=== PATIENT | male | born 1945 | race Two or more races ===

== ENCOUNTER 2024-11-09 22:37 | Inpatient (IN) | payer MEDICARE ==
[~2024-11-09] VITALS: Ht 172.7 cm; Wt 89.7 kg
--- NOTE | 2024-11-09 22:51 | ED.PDOC ---
History of Present Illness HPI Comments 79 year old male presents to the ED via EMS with a chief complaint of ALOC. Per EMS, patient's family called 911 due to patient being ill for the past week with intermittent shortness of breath. Upon EMS arrival, slight fever with 100 F, patient's vital signs were stable, HR 120-130, BP 111 systolic. Patient was given breathing treatment in route, resolved SOB. In route, patient's HR was 226, a-fib/RVR, BP 90 systolic, IV fluids were given. Patient is not compliant with Eliquis medication. PMHx a-fib, HTN. Denies chest pain, dizziness, nausea, vomiting, diarrhea, headache, dysuria, hematuria, hematemesis. No other symptoms or modifying factors present at this time. Time Seen by MD: 22:40 Reviewed Notes: Medications, Allergies Allergies: Coded Allergies: NO KNOWN ALLERGIES (Unverified , 11/09/24) Information Source: Patient, Emergency Med Personnel Mode of Arrival: EMS Severity: Moderate Timing: Weeks Duration: Since onset Prehospital treatment: Breathing Tx, IVF Past Medical History PAST MEDICAL HISTORY: AFIB, HTN Surgical History: Denies all surgeries Family History Family History: Reviewed,noncontributory to illness, No family hx of Cancer, No family hx of DM, No family hx of Heart luis, No family hx of HTN, No family hx ofKidney luis, No family hx of Liver luis, No family hx of Lung luis, No family hx of Stroke Social History Smoker: Non-Smoker Alcohol: Denies ETOH Use Drugs: Denies Drug Use Lives In: Home Constitutional: reports: fever; denies: chills, diaphoresis, fatigue, malaise, sweats, weakness, others EENTM: denies: blurred vision, double vision, ear bleeding, ear discharge, ear drainage, ear pain, ear ringing, eye pain, eye redness, hearing loss, mouth pain, mouth swelling, nasal discharge, nose bleeding, nose congestion, nose pain, photophobia, tearing, throat pain, throat swelling, voice changes, others Respiratory: reports: shortness of breath; denies: cough, hemoptysis, orthopnea, SOB at rest, SOB with excertion, stridor, wheezing, others Cardiovascular: denies: chest pain, dizzy spells, diaphoresis, Dyspnea on exertion, edema, irregular heart beat, left arm pain, lightheadedness, palpitations, PND, syncope, others Gastrointestinal: denies: abdomen distended, abdominal pain, blood streaked bowels, constipated, diarrhea, dysphagia, difficulty swallowing, hematemesis, melena, nausea, poor appetite, poor fluid intake, rectal bleeding, rectal pain, vomiting, others Genitourinary: denies: burning, dysuria, flank pain, frequency, hematuria, incontinence, penile discharge, penile sore, pain, testicle pain, testicle swelling, urgency, others Neurological: denies: dizziness, fainting, headache, left sided numbness, left sided weakness, numbness, paresthesia, pre-existing deficit, right sided numbness, right sided weakness, seizure, speech problems, tingling, tremors, weakness, others Musculoskeletal: denies: back pain, gout, joint pain, joint swelling, muscle pain, muscle stiffness, neck pain, others Integumetry: denies: bruises, change in color, change in hair/nails, dryness, laceration, lesions, lumps, rash, wounds, others Allergic/Immunocompromised: denies: Difficulty Healing, Frequent Infections, Hives, Itching, others Hematologic/Lymphatic: denies: anemia, blood clots, easy bleeding, easy bruising, swollen glands, others Endocrine: denies: excessive hunger, excessive sweating, excessive thirst, excessive urination, flushing, intolerance to cold, intolerance to heat, unexplained weight gain, unexplained weight loss, others Psychiatric: denies: anxiety, bipolar disorder, depression, hopeless, panic disorder, schizophrenia, sleepless, suicidal, others All Other Systems: Reviewed and Negative Physical Exam General Appearance: Normal HEENT: Normal ENT Inspection, Pharynx Normal, TMs Normal Neck: Full Range of Motion, Non-Tender, Normal, Normal Inspection Respiratory: Chest Non-Tender, Lungs Clear, No Accessory Muscle Use, No Respiratory Distress, Normal Breath Sounds Cardiovascular: No Edema, No JVD, No Murmur, No Gallop, Normal Peripheral Pulses, Regular Rate/Rhythm Breast Exam: Deferred Gastrointestinal: No Organomegaly, Non Tender, No Pulsatile Mass, Normal Bowel Sounds, Soft Genitalia: Deferred Pelvic: Deferred Rectal: Deferred Extremities: No calf tenderness, Normal capillary refill, Normal inspection, Normal range of motion, Non-tender, No pedal edema Musculoskeletal : Apperance: Normal Neurologic: Alert, manager body II-XII nml as Tested, No Motor Deficits, Normal Affect, Normal Mood, No Sensory Deficits Cerebellar Function: Normal Reflexes: Normal Skin: Dry, Normal Color, Warm Lymphatic: No Adenopathy Was a procedure done? Was a procedure done?: No EKG EKG : Pulse Rate (adult): 143 Cardiac Rhythm: ST Differential Dx Considerations may include: Electrolyte abnormality, infectious etiology, viral syndrome X-Ray, Labs, Meds, VS Vital Signs Date Time Temp Pulse Resp B/P (MAP) Pulse Ox O2 Delivery O2 Flow Rate FiO2 11/10/24 09:00 122 30 130/67 (88) 92 11/10/24 07:30 114 24 91 Nasal Cannula* 4 36 11/10/24 07:00 114 24 103/76 (85) 91 11/10/24 05:00 114 28 113/75 (88) 87 11/10/24 03:00 127 29 111/61 (78) 89 11/10/24 01:00 136 32 121/71 (88) 87 11/10/24 00:16 137 22 97 Nasal Cannula* 3 32 11/09/24 23:15 98.2 137 22 103/65 (78) 97 98.2 11/09/24 22:51 143 11/09/24 22:45 100.0 165 24 90/61 (71) 90 100.0 11/09/24 22:43 143 Lab Test 11/10/24 08:40 11/10/24 04:45 11/10/24 01:43 11/10/24 01:02 Range/Units Direct Bilirubin 4.0 H <0.3 mg/dL C-Reactive Protein High Sensitivity > 20.00 H <1.0 mg/dL Lipase 68 H 12-53 U/L Thyroid Stimulating Hormone (TSH) 5.71 H 0.55-4.78 uIU/mL Hepatitis A IgM Antibody Negative Hepatitis B Surface Antigen Negative Negative Hepatitis B Core IgM Antibody Negative Negative Hepatitis C Antibody Negative Negative Urine Color Dark-yellow Yellow Urine Clarity Ex.turbid Clear Urine pH 5.5 5.0-9.0 Urine Specific Jackson 1.019 1.001-1.035 Urine Protein 1+ H Negative Urine Ketones Negative Negative Urine Blood 2+ H Negative /uL Urine Nitrite Negative Negative Urine Bilirubin 2+ Negative Urine Urobilinogen 6 Negative mg/dL Urine Leukocyte Esterase Negative Negative /uL Urine RBC 1 0 - 3 /hpf Urine Microscopic WBC 4 H 0-3 /HPF Urine Squamous Epithelial Cells None seen <5 /hpf Urine Amorphous Crystals Few None Seen /hpf Urine Bacteria Few H None Seen /hpf Urine Mucus Few None Seen Urine Glucose Normal Normal mg/dL Urine Opiates Screen Neg NEGATIVE Urine Fentanyl Screen Neg NEGATIVE Urine Barbiturates Screen Neg NEGATIVE Urine Phencyclidine Screen Neg NEGATIVE Urine Amphetamines Screen Neg NEGATIVE Urine Benzodiazepines Screen Neg NEGATIVE Urine Cocaine Screen Neg NEGATIVE Urine Cannabinoids Screen Neg NEGATIVE Troponin I High Sensitivity 92 *H </=54 ng/L Lactic Acid Level 2.7 *H 0.4-2.0 mmol/L Test 11/09/24 23:46 11/09/24 22:57 Range/Units Troponin I High Sensitivity 104 *H 109 *H </=54 ng/L White Blood Count 31.2 *H 4.4-10.8 10^3/uL Red Blood Count 5.13 4.5-5.90 10^6/uL Hemoglobin 15.1 13.5-17.5 g/dL Hematocrit 45.3 41.0-53.0 % Mean Corpuscular Volume 88.2 80.0-100.0 fL Mean Corpuscular Hemoglobin 29.4 28.0-32.0 pg Mean Corpuscular Hemoglobin Concent 33.4 32.0-36.0 g/dL Red Cell Distribution Width 14.8 H 11.8-14.3 % Platelet Count 333 140-450 10^3/uL Mean Platelet Volume 9.3 6.9-10.8 fL Neutrophils (%) (Auto) 37.0-80.0 % Lymphocytes (%) (Auto) 10.0-50.0 % Monocytes (%) (Auto) 0.0-12.0 % Basophils (%) (Auto) 0.0-2.0 % Neutrophils # (Auto) 1.6-8.6 10 ^3/uL Lymphocytes # (Auto) 0.4-5.4 10 ^3/uL Monocytes # (Auto) 0-1.3 10 ^3/uL Differential Total Cells Counted 100.0 100 Neutrophils % (Manual) 95 H 37.0-80.0 Band Neutrophils % (Manual) 2 Lymphocytes % (Manual) 2 L 10.0-50.0 Monocytes % (Manual) 0 0-12 Eosinophils % (Manual) 0 0-7 Basophils % (Manual) 0 0.0-2.0 Metamyelocytes % (manual) 1 Myelocytes % (Manual) 0 Promyelocytes % (Manual) 0 Blast Cells % (Manual) 0 Nucleated Red Blood Cells 1.0 % Reactive Lymphocytes 0 Platelet Estimate Adequate Giant Platelets Few Sodium Level 141 136-145 mmol/L Potassium Level 5.0 3.5-5.1 mmol/L Chloride Level 106 98-107 mmol/L Carbon Dioxide Level 22 20-31 mmol/L Anion Gap 13 5-15 Blood Urea Nitrogen 89 *H 9-23 mg/dL Creatinine 2.23 H 0.700-1.30 mg/dL Glomerular Filtration Rate Calc 29 >90 mL/min BUN/Creatinine Ratio 39.9 H 10.0-20.0 Serum Glucose 147 H 74-106 mg/dL Lactic Acid Level 3.7 *H 0.4-2.0 mmol/L Calcium Level 8.3 L 8.7-10.4 mg/dL Total Bilirubin 4.5 H 0.2-1.0 mg/dL Aspartate Amino Transferase (AST) 339 H 13-40 U/L Alanine Aminotransferase (ALT) 152 H 7-40 U/L Alkaline Phosphatase 147 H 46-116 U/L B-Type Natriuretic Peptide 45.66 0-100 pg/mL Total Protein 6.9 5.7-8.2 g/dL Albumin 3.8 3.2-4.8 g/dL Microbiology Date/Time Source Procedure Growth Status 11/09/24 23:06 Blood Blood Culture - Final Staphylococcus epidermidis Complete 11/09/24 22:57 Blood Blood Culture - Final NO GROWTH AFTER 5 DAYS OF INCUBATION. Complete [place] [address] Ph: [phone] DIAGNOSTIC IMAGING Diagnostic Imaging Report : [id number] Signed PATIENT: HOLLI HOSKINS ACCT: [id number] UNIT: [id number] : 1945 LOC: ER ROOM / BED: / AGE / SEX: 79 / M ADM STATUS: REG ER SERVICE [id number] ORDERING PHYSICIAN: ALAN CRAMER MD PROCEDURE(s): CXRP - CHEST PORTABLE REASON: weakness ORDER NUMBER(s): [id number], ACCESSION NUMBER(s): [id number] EXAM: XY CHEST PORTABLE CLINICAL HISTORY: weakness TECHNIQUE: Single AP view of the chest WID: COMPARISON: None FINDINGS: Lines and tubes: None Chest: The heart size and pulmonary vasculature is within normal limits. Patchy and confluent airspace opacities in the mid to lower left lung. The osseous structures are grossly intact. Multilevel thoracic spondylosis. IMPRESSION: Patchy and confluent airspace opacities in the mid to lower left lung which cou ld reflect pneumonia. ATED BY: WILMER RIVERO MD DICTATED DATE/TIME: 11/09/242323 SIGNED BY: WILMER RIVERO MD SIGNED DATE/TIME: 11/09/242323 CC: Time of 1ST Reevaluation: 23:10 Reevaluation 1ST: Unchanged Patient Education/Counseling: Diagnosis, Treatment, Prognosis Family Education/Counseling: No Family Present SEPSIS Sepsis Screen Physician Orders Chest Portable (11/09/24 22:47) Electrocardigram (11/09/24 22:47) Electrocardigram (11/09/24 23:47) Electrocardigram (11/10/24 01:47) Ct Ab Pel Wo Con-No Oral Or Iv (11/10/24 01:59) Abdomen Limited (11/10/24 07:54) Allergies (11/10/24 09:40) Code Status (11/10/24 09:40) Ondansetron Hcl (Zofran) (11/10/24 09:45) Sequential Compression Device (11/10/24 ) Stat Ekg For Chest Pain (11/10/24 09:40) Notify Md Of Changes From Base (11/10/24 09:40) Emergency Dysrhythmia Protocol (11/10/24 09:40) Rhythm Strips Once Every Shift (11/10/24 09:40) Oxygen By Nasal Cannula (11/10/24 09:40) Vital Signs Date Time Temp Pulse Resp B/P (MAP) Pulse Ox O2 Delivery O2 Flow Rate FiO2 11/10/24 09:00 122 30 130/67 (88) 92 11/10/24 07:30 114 24 91 Nasal Cannula* 4 36 11/10/24 07:00 114 24 103/76 (85) 91 11/10/24 05:00 114 28 113/75 (88) 87 11/10/24 03:00 127 29 111/61 (78) 89 11/10/24 01:00 136 32 121/71 (88) 87 11/10/24 00:16 137 22 97 Nasal Cannula* 3 32 11/09/24 23:15 98.2 137 22 103/65 (78) 97 98.2 11/09/24 22:51 143 11/09/24 22:45 100.0 165 24 90/61 (71) 90 100.0 11/09/24 22:43 143 Laboratory Tests Test 11/09/24 22:57 11/10/24 01:02 Lactic Acid Level 3.7 mmol/L (0.4-2.0) *H 2.7 mmol/L (0.4-2.0) *H White Blood Count 31.2 10^3/uL (4.4-10.8) *H Departure 1 Departure Time of Disposition: 19:00 (Patient with a acute metabolic encephalopathy concerning abnormality AFib with RVR. We will admit patient for further workup) Impression: Primary Impression: Atrial fibrillation with RVR Additional Impressions: Acute metabolic encephalopathy Generalized weakness Disposition: ADMITTED INPATIENT Admit to: Tele Condition: Guarded Critical Care Note Critical Care Time?: Yes Critical care comment: Altered mental status Authorized and Performed by: Alan Cramer MD Total critical care time: Approximately 37 minutes Due to a high probability of clinically significant, life threatening deterioration, the patient required my highest level of preparedness to intervene emergently and I personally spent this critical care time directly and personally managing the patient. This critical care time included obtaining a history; examining the patient; pulse oximetry; ordering and review of studies; arranging urgent treatment with development of a management plan; evaluation of patient's response to treatment; frequent reassessment; and, discussions with other providers. This critical care time was performed to assess and manage the high probability of imminent, life-threatening deterioration that could result in multi-organ failure. It was exclusive of separately billable procedures and treating other patients and teaching time. Please see my other sections and the rest of the note for further information on patient assessment and treatment. Stability Stability form required: No I personally scribed for ALAN CRAMER MD ([email or web address]) on 11/09/24 at 22:51. Electronically submitted by Angelita Montana ([email or web address]). I personally scribed for ALAN CRAMER MD ([email or web address]) on 11/09/24 at 23:29. El ectronically submitted by Angelita Montana ([email or web address]). ALAN CRAMER MD Nov 09, 2024 22:51
--- NOTE | 2024-11-09 23:26 | DVH ---
EXAM: XY CHEST PORTABLE CLINICAL HISTORY: weakness TECHNIQUE: Single AP view of the chest WID: COMPARISON: None FINDINGS: Lines and tubes: None Chest: The heart size and pulmonary vasculature is within normal limits. Patchy and confluent airspace opacities in the mid to lower left lung. The osseous structures are grossly intact. Multilevel thoracic spondylosis. IMPRESSION: Patchy and confluent airspace opacities in the mid to lower left lung which could reflect pneumonia.
[2024-11-09] MEDS: SODIUM CHLORIDE 0.9% 2,000 ML IV ONE (23:33)
[2024-11-09] MEDS: VANCOMYCIN 1GM/200ML PM 200 ML IV ONE (23:33)
[2024-11-09 23:37] LABS: Mean Corpuscular Volume 88.2 fL (80.0-100.0)
[2024-11-09 23:39] LABS: Hematocrit 45.3 % (41.0-53.0); Hemoglobin 15.1 g/dL (13.5-17.5); Mean Corpuscular Hemoglobin 29.4 pg (28.0-32.0)
[2024-11-09 23:47] LABS: Albumin 3.8 g/dL (3.2-4.8); Anion Gap 13 (5-15); BUN/Creatinine Ratio 39.9 (10.0-20.0); Carbon Dioxide 22 mmol/L (20-31); Chloride 106 mmol/L (98-107); Potassium 5.0 mmol/L (3.5-5.1); Sodium 141 mmol/L (136-145); Total Protein 6.9 g/dL (5.7-8.2)
[2024-11-09 23:52] LABS: Lactic Acid w/Reflex 3.7 mmol/L (0.4-2.0)
[2024-11-09 23:53] LABS: Alanine Aminotransferase 152 U/L (7-40); Alkaline Phosphatase 147 U/L (46-116); Bilirubin, Total 4.5 mg/dL (0.2-1.0); Blood Urea Nitrogen 89 mg/dL (9-23); Calcium 8.3 mg/dL (8.7-10.4); Glucose 147 mg/dL (74-106)
[2024-11-10] VITALS (17 sets, daily range): BP systolic 108–162; BP diastolic 55–124; PULSE 101–137; RESP 17–32; TEMP 100.8; O2SAT 73–99
[2024-11-10 00:45] LABS: Giant Platelets Few; Nucleated Red Blood Cells % 1.0 %; Total Cells Counted 100.0 (100)
[2024-11-10] MEDS: CEFEPIME 2GM/50ML NS 50 ML IV ONE (01:23)
[2024-11-10] MEDS: SODIUM CHLORIDE 0.9% 1,000 ML IV ONE ×2 (01:42→02:54)
--- NOTE | 2024-11-10 03:08 | DVH ---
Exam: CT CT AB PEL WO CON-NO ORAL OR IV History: abdominal pain Comparison Study: None TECHNIQUE: Multidetector CT of the abdomen and pelvis was performed from lung bases to pubic symphysi s. Imaging was performed without IV contrast. Axial, coronal and sagittal multiplanar reformats were obtained from the axial data set by the technologist. Radiation optimization: All CT scans at this facility use at least one of these dose optimization vandana hniques: automated exposure control mA and/or kV adjustment per patient size (includes targeted exam s where dose is matched to clinical indication) or iterative reconstruction. Radiation Dose Information: CT Dose: CTDI volume is 21.4 mGy. Dose-length product is 1362.7 mGy*cm FINDINGS: Evaluation of solid organs is limited due to lack of intravenous contrast use. Imaged portions of the lung bases demonstrate consolidation and opacification of the left lower lobe. The heart appears prominent size. Liver, gallbladder, pancreas, adrenal glands and spleen appear unremarkable. There is a small hiatal hernia. 1.7 cm left exophytic renal mass likely represent cyst. No evidence of hydronephrosis or calc ulus. No evidence of bowel obstruction or focal bowel wall thickening. Small umbilical fat containing herni a. Severe degenerative changes of the spine without suspicious osseous lesion. IMPRESSION: 1. No acute abdominal or pelvic finding. 2. Left lower lobe consolidation favoring infectious process.
--- NOTE | 2024-11-10 05:54 | ECG ---
[facility] Test Date: 2024-11-09 Test Time: 22:43:46 Pat Name: HOLLI HOSKINS Department: ED Room: 0264 Gender: M Facility Maintenance Technician: SOUTH : 1945 Requested By: ALAN LEIGH Order Number: [id number] Reading MD: Napoleon Brooks Measurements Intervals [place] Rate: 143 P: 0 CA: 0 QRS: 146 QRSD: 142 T: 3 QT: 325 QTc: 501 Interpretive Statements Extreme tachycardia with wide complex, no further rhythm analysis attempted Electronically Signed On 11-11-2024 10:26:36 PDT by Napoleon Brooks Please click the below link to view image of tracing.
[2024-11-10 06:06] LABS: Urine Amorphous Crystal FEW /hpf (None Seen); Urine Protein, UAD 1+ (Negative)
--- NOTE | 2024-11-10 08:53 | DVH ---
INDICATION: pain; r/o choledochole TECHNIQUE: Multiple real-time sonographic images were obtained of the right upper quadrant. COMPARISON: None FINDINGS: The liver demonstrates homogenous echotexture without focal mass lesions. The liver measure s 14 cm. The common duct is not well visualized due to obscuration from bowel gas. The gallbladder is without evidence of stone or sludge. The gallbladder wall measures 1 mm and is wi thin normal limits. The right kidney measures 9.9 cm. The right kidney is normal in contour, size, and shape. The echoge nicity is normal. There is no hydronephrosis. The pancreas is not well visualized due to overlying bowel gas. IMPRESSION: No sonographic evidence of gallstones or acute cholecystitis.
[2024-11-10] MEDS ORDERED: MORPHINE SULFATE INJ 2 MG/ml SYRG IV PRN (09:45)
[2024-11-10] MEDS ORDERED: NITROGLYCERIN 0.4 MG SL TAB SL PRN (09:45)
[2024-11-10] MEDS ORDERED: ONDANSETRON HCL 4 MG/2 ML VIAL IV PRN (09:45)
--- NOTE | 2024-11-10 09:52 | DVHHP2 ---
History of Present Illness Reason for Visit: ALOC History of Present Illness Tien Kc is a 79-year-old male with past medical history of hypertension, AFib, and patient reports abdominal surgery who presents to the ED with altered level of consciousness x1 week per family reports. Upon examination patient is A&O x3. Patient also endorses that he drinks 18 bottles of hard liquor per day. He states he does not particularly drink a certain kind. Patient denies any smoking or illicit drug use. He states that he lives at home with his family. He also reports that he is taking Eliquis, levothyroxine, and metoprolol. He states that he does not know why he is taking Eliquis. Patient denies any chest pain, shortness of breath, recent trauma or injury, recent sick contacts, recent ingestion of spoiled food, recent travels, abdomi nal pain, nausea, vomiting, diarrhea, lightheadedness, weakness, or dizziness. Cardiovascular: AFIB, HTN Past Surgical History: Other (Patient reports abdominal surgery) Family History: None Smoke: No ALCOHOL: heavy Drugs: None Lives: with Family Domestic Violence: Neg Review of Systems Neurological: Other (Altered level of consciousness) Allergies: Coded Allergies: NO KNOWN ALLERGIES (Unverified , 11/09/24) Exam Vital Signs Vital Signs Date Time Temp Pulse Resp B/P (MAP) Pulse Ox O2 Delivery O2 Flow Rate FiO2 11/10/24 09:00 122 30 130/67 (88) 92 11/10/24 07:30 Nasal Cannula* 4 36 11/09/24 23:15 98.2 98.2 General Appearance: Alert, Oriented X3, Cooperative, No acute distress HEENT: Atraumatic, PERRLA, EOMI, Mucous membr. moist/pink Respiratory: Clear to auscultation, Normal air movement Cardiovascular: Normal S1, Normal S2 Abdominal: Soft, No tenderness Extremities: No cyanosis, Normal pulses Skin: No significant lesion Neuro: Normal speech, Normal tone, Sensation intact Psych/Mental Status: Mental status NL, Mood NL Labs/Xrays Labs Test 11/10/24 08:40 11/10/24 04:45 11/10/24 01:43 11/10/24 01:02 Range/Units Direct Bilirubin 4.0 H <0.3 mg/dL Urine Color Dark-yellow Yellow Urine Clarity Ex.turbid Clear Urine pH 5.5 5.0-9.0 Urine Specific [place] 1.019 1.001-1.035 Urine Protein 1+ H Negative Urine Ketones Negative Negative Urine Blood 2+ H Negative /uL Urine Nitrite Negative Negative Urine Bilirubin 2+ Negative Urine Urobilinogen 6 Negative mg/dL Urine Leukocyte Esterase Negative Negative /uL Urine RBC 1 0 - 3 /hpf Urine Microscopic WBC 4 H 0-3 /HPF Urine Squamous Epithelial Cells None seen <5 /hpf Urine Amorphous Crystals Few None Seen /hpf Urine Bacteria Few H None Seen /hpf Urine Mucus Few None Seen Urine Glucose Normal Normal mg/dL Troponin I High Sensitivity 92 *H </=54 ng/L Lactic Acid Level 2.7 *H 0.4-2.0 mmol/L Test 11/09/24 22:57 Range/Units White Blood Count 31.2 *H 4.4-10.8 10^3/uL Red Blood Count 5.13 4.5-5.90 10^6/uL Hemoglobin 15.1 13.5-17.5 g/dL Hematocrit 45.3 41.0-53.0 % Mean Corpuscular Volume 88.2 80.0-100.0 fL Mean Corpuscular Hemoglobin 29.4 28.0-32.0 pg Mean Corpuscular Hemoglobin Concent 33.4 32.0-36.0 g/dL Red Cell Distribution Width 14.8 H 11.8-14.3 % Platelet Count 333 140-450 10^3/uL Mean Platelet Volume 9.3 6.9-10.8 fL Neutrophils (%) (Auto) 37.0-80.0 % Lymphocytes (%) (Auto) 10.0-50.0 % Monocytes (%) (Auto) 0.0-12.0 % Basophils (%) (Auto) 0.0-2.0 % Neutrophils # (Auto) 1.6-8.6 10 ^3/uL Lymphocytes # (Auto) 0.4-5.4 10 ^3/uL Monocytes # (Auto) 0-1.3 10 ^3/uL Differential Total Cells Counted 100.0 100 Neutrophils % (Manual) 95 H 37.0-80.0 Band Neutrophils % (Manual) 2 Lymphocytes % (Manual) 2 L 10.0-50.0 Monocytes % (Manual) 0 0-12 Eosinophils % (Manual) 0 0-7 Basophils % (Manual) 0 0.0-2.0 Metamyelocytes % (manual) 1 Myelocytes % (Manual) 0 Promyelocytes % (Manual) 0 Blast Cells % (Manual) 0 Nucleated Red Blood Cells 1.0 % Reactive Lymphocytes 0 Platelet Estimate Adequate Giant Platelets Few Sodium Level 141 136-145 mmol/L Potassium Level 5.0 3.5-5.1 mmol/L Chloride Level 106 98-107 mmol/L Carbon Dioxide Level 22 20-31 mmol/L Anion Gap 13 5-15 Blood Urea Nitrogen 89 *H 9-23 mg/dL Creatinine 2.23 H 0.700-1.30 mg/dL Glomerular Filtration Rate Calc 29 >90 mL/min BUN/Creatinine Ratio 39.9 H 10.0-20.0 Serum Glucose 147 H 74-106 mg/dL Calcium Level 8.3 L 8.7-10.4 mg/dL Total Bilirubin 4.5 H 0.2-1.0 mg/dL Aspartate Amino Transferase (AST) 339 H 13-40 U/L Alanine Aminotransferase (ALT) 152 H 7-40 U/L Alkaline Phosphatase 147 H 46-116 U/L B-Type Natriuretic Peptide 45.66 0-100 pg/mL Total Protein 6.9 5.7-8.2 g/dL Albumin 3.8 3.2-4.8 g/dL INDICATION: pain; r/o choledochole TECHNIQUE: Multiple real-time sonographic images were obtained of the right upper quadrant. COMPARISON: None FINDINGS: The liver demonstrates homogenous echotexture without focal mass lesions. The liver measures 14 cm. The common duct is not well visualized due to obscuration from bowel gas. The gallbladder is without evidence of stone or sludge. The gallbladder wall measures 1 mm and is within normal limits. The right kidney measures 9.9 cm. The right kidney is normal in contour, size, and shape. The echogenicity is normal. There is no hydronephrosis. The pancreas is not well visualized due to overlying bowel gas. IMPRESSION: No sonographic evidence of gallstones or acute cholecystitis. Exam: CT CT AB PEL WO CON-NO ORAL OR IV History: abdominal pain Comparison Study: None TECHNIQUE: Multidetector CT of the abdomen and pelvis was performed from lung bases to pubic symphysis. Imaging was performed without IV contrast. Axial, coronal and sagittal multiplanar reformats were obtained from the axial data set by the technologist. Radiation optimization: All CT scans at this facility use at least one of these dose optimization techniques: automated exposure control mA and/or kV adjustment per patient size (includes targeted exams where dose is matched to clinical indication) or iterative reconstruction. Radiation Dose Information: CT Dose: CTDI volume is 21.4 mGy. Dose-length product is 1362.7 mGy*cm FINDINGS: Evaluation of solid organs is limited due to lack of intravenous contrast use. Imaged portions of the lung bases demonstrate consolidation and opacification of the left lower lobe. The heart appears prominent size. Liver, gallbladder, pancreas, adrenal glands and spleen appear unremarkable. There is a small hiatal hernia. 1.7 cm left exophytic renal mass likely represent cyst. No evidence of hydronephrosis or calculus. No evidence of bowel obstruction or focal bowel wall thickening. Small umbilical fat containing hernia. Severe degenerative changes of the spine without suspicious osseous lesion. IMPRESSION: 1. No acute abdominal or pelvic finding. 2. Left lower lobe consolidation favoring infectious process. EXAM: XY CHEST PORTABLE CLINICAL HISTORY: weakness TECHNIQUE: Single AP view of the chest WID: COMPARISON: None FINDINGS: Lines and tubes: None Chest: The heart size and pulmonary vasculature is within normal limits. Patchy and confluent airspace opacities in the mid to lower left lung. The osseous structures are grossly intact. Multilevel thoracic spondylosis. IMPRESSION: Patchy and confluent airspace opacities in the mid to lower left lung which could reflect pneumonia. 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 [place]INA Azotemia Hyperglycemia Leukocytosis likely septic Elevated troponins Obesity Left lower lobe consolidation likely due to pneumonia History of hypertension Plan Admit to tele Trend troponins Beta-blockers IV antibiotics-Vancomycin +cefepime NS 4 L given in ED CT abdomen and pelvis Manual differential EKG BNP Blood cultures Lactic level trend Chest x-ray Bili Ultrasound abdomen Lipase Acute hepatitis panel NPO for now IV fluids Home medications reconciled-patient states that he takes Eliquis, metoprolol, and levothyroxine (patient reports that he does not know his dose) RN to recon home medications DVT prophylaxis-Lovenox PUD prophylaxis-PPIs Discussed plan of care with patient and nurse Cardiology consult - for new AFib with RVR Nephro consult Consider GI consult if LFTs and T bili worsen Counseled patient on lifestyle modifications, diet, and exercise Consult patient on cessation of alcohol use [id number] Advanced care planning discussed [id number] Preventive counseling healthy eating habits, physical activity, and regular checkups Plan discussed with: Patient My Orders Orders - CEDRIC HAMLIN Procedure Category Date Status Time Abdomen Limited US 11/10/24 Resulted 07:54 Lipase LAB 11/10/24 In Process 07:57 Labetalol Hcl PHA 11/10/24 In Process (Labetalol Hcl) 09:30 C-Reactive Protein LAB 11/10/24 In Process 09:36 Prothrombin Time W/ LAB 11/10/24 Logged INR 09:38 Acute Hepatitis Panel LAB 11/10/24 In Process 09:39 Admit ADMIT 11/10/24 Transmitted 09:40 Allergies [facility] 11/10/24 Transmitted 09:40 Code Status CODE 11/10/24 Transmitted 09:40 Ondansetron Hcl [facility] 11/10/24 Transmitted (Zofran) 09:45 Complete Blood Count LAB 11/11/24 Verified 04:00 Comprehensive LAB 11/11/24 Verified Metabolic Panel 04:00 Npo (Nothing By DIET 11/10/24 Transmitted Mouth) Diet Lunch Sequential [facility] 11/10/24 Transmitted Compression Device Nitroglycerin [facility] 11/10/24 Transmitted Sublingual (Ntrostat 09:45 Morphine Sulfate [facility] 11/10/24 Transmitted Injection 09:45 Stat Ekg For Chest [facility] 11/10/24 Transmitted Pain 09:40 Notify Of Changes [facility] 11/10/24 Transmitted From Base 09:40 Compensation Vice President For [facility] 11/10/24 Transmitted 24 Hours 09:40 Emergency Dysrhythmia [facility] 11/10/24 Transmitted Protocol 09:40 Rhythm Strips Once [facility] 11/10/24 Transmitted Every Shift 09:40 Oxygen By Nasal RT 11/10/24 Transmitted Cannula 09:40 Date of Service: Nov 10, 2024 Billing Provider: CEDRIC HAMLIN Common Visit Codes: 42149-EMALHYI INP/OBS CARE (HIGH) Secondary Visit Codes: 16770-[id number] COUNSELING IND, 47798-[id number] CARE PLAN 30 MINUTES CEDRIC HAMLIN Nov 10, 2024 09:52
[2024-11-10] MEDS: LABETALOL HCL 20 MG/4 ML VL IV ONE (09:53)
[2024-11-10] MEDS: ENOXAPARIN SOD 40 MG/0.4 ML SYRINGE SC ONE (10:11)
[2024-11-10] MEDS ORDERED: VANCOMYCIN PER PHARMACY 0 MG IV SCH (10:15)
[2024-11-10] MEDS: METOPROLOL TARTRATE 25 MG TAB PO SCH (10:26)
[2024-11-10] MEDS: CEFEPIME 1GM/ 50ML 50 ML IV SCH (10:29)
[2024-11-10 10:40] LABS: INR 1.33 (0.9-1.15); Prothrombin Time 13.7 sec (9.3-11.8)
[2024-11-10] MEDS: FOLIC ACID 1 MG TAB PO SCH (10:46)
[2024-11-10] MEDS: MULTIPLE VITAMINS W/ MINERALS TAB PO SCH (10:46)
[2024-11-10] MEDS: THIAMINE HCL 100 MG TAB PO SCH (10:49)
[2024-11-10] MEDS: APIXABAN 5 MG TAB PO SCH (10:49)
[2024-11-10] MEDS: ENOXAPARIN SOD 40 MG/0.4 ML SYRINGE SC SCH (11:00)
[2024-11-10] MEDS: SODIUM CHLORIDE 0.9% 1,000 ML IV SCH (11:30)
[2024-11-10 13:48] LABS: Potassium 4.8 mmol/L (3.5-5.1)
[2024-11-10 13:49] LABS: Anion Gap 1 (5-15)
[2024-11-10 13:54] LABS: Amphetamine Screen, Urine Neg (NEGATIVE); Barbiturate Scree,Urine Neg (NEGATIVE); Benzodiazephine Screen, Urine Neg (NEGATIVE); Cannabinoid Screen, Urine Neg (NEGATIVE); Cocaine Screen, Urine Neg (NEGATIVE); Opiate Scree,Urine Neg (NEGATIVE); Phencyclidine Screen, Urine Neg (NEGATIVE)
[2024-11-10 13:54] LABS: BUN/Creatinine Ratio 44.5 (10.0-20.0); Glucose 97 mg/dL (74-106)
[2024-11-10 13:55] LABS: Calcium 7.5 mg/dL (8.7-10.4); Carbon Dioxide 18 mmol/L (20-31); Chloride 110 mmol/L (98-107); Sodium 129 mmol/L (136-145)
[2024-11-10 13:58] LABS: Blood Urea Nitrogen 85 mg/dL (9-23)
--- NOTE | 2024-11-10 14:05 | DVHINCON2 ---
Date Seen: Nov 10, 2024 Referring Physician ORIANA Alvarado Reason for Consultation AFib RVR History of Present Illness This is a 79-year-old male patient who presents to the emergency room with chief complaint of altered level of mentation and shortness of breath. At the time of assessment, the patient is only alert to self and place and unable to answer any further questions. Attempted to call patient's , Gloria who is listed as next of kin, no answer. Information obtained from medical records and bedside RN. According to notes, the patient was initially brought in due to unusual behavior as well as altered level of mentation for approximately one week. Cardiology has been consulted at this time for atrial fibrillation with rapid ventricular response. Initial twelve lead electrocardiogram reveals atrial fibrillation with rapid ventricular rate. Initial troponin level of 109ng/L down trend thereafter. The patient denies any cardiac symptoms at time of assessment. Significant past medical history includes atrial fibrillation, hypertension, and alcohol abuse. Unable to confirm any other past medical history given that the patient is still confused at time of assessment. No family at bedside and unable to reach via telephone. Past Medical History Past medical history reviewed. No other significant than mentioned above. Past Surgical History Unable to obtain Family History Family history reviewed. Social History Per records, patient drinks hard liquor daily Denies any illicit drug use Denies tobacco use Allergies: Coded Allergies: NO KNOWN ALLERGIES (Unverified , 11/09/24) Home Meds Home medications reviewed. Current Medications Current Medications Medications (Trade) Dose Ordered Sig/Dennis Route PRN Reason Start Time Stop Time Status Last Admin Ondansetron HCl (Zofran) 4 mg Q4HP PRN IV NAUSEA / VOMITING 11/10/24 09:45 Nitroglycerin (Ntrostat Sublingual) 0.4 mg Q5MINP PRN SL FOR CHEST PAIN 11/10/24 09:45 Morphine Sulfate 2 mg Q30M PRN IV FOR CHEST PAIN 11/10/24 09:45 Metoprolol Tartrate (Lopressor Tablet) 25 mg BID PO 11/10/24 10:00 11/10/24 10:26 Apixaban (Eliquis) 5 mg BID PO 11/10/24 10:00 11/10/24 11:02 DC 11/10/24 10:49 Vancomycin HCl 0 ml @ 0 mls/hr UD IV 11/10/24 10:15 Cefepime HCl 50 ml @ 12.5 mls/hr Q12HR IV 11/10/24 10:24 11/10/24 10:29 Multivitamins/ Minerals (Mvi W/ Minerals Tablet) 1 tab DAILY PO 11/10/24 10:15 11/10/24 10:46 Thiamine HCl 100 mg DAILY PO 11/10/24 10:15 11/10/24 10:49 Folic Acid 1 mg DAILY PO 11/10/24 10:15 11/10/24 10:46 Enoxaparin Sodium (Lovenox) 40 mg DAILY SC 11/10/24 11:00 Sodium Chloride 1,000 ml @ 125 mls/hr Q8H IV 11/10/24 11:00 11/10/24 11:30 Review of Systems Constitutional: No symptom reported Ears, Nose, & Throat: No symptom reported Eyes: No symptom reported Neurological: Altered level of mentation Pulmonary/Respiratory: Shortness of breath Cardiovascular: No symptom reported Gastrointestinal: No symptom reported Genitourinary: No symptom reported Musculoskeletal: No symptom reported Skin: No symptom reported Psychiatric: No symptom reported Endocrine: No symptom reported Hematologic/Lymphatic: No symptom reported Vital Signs Vital Signs Date Time Temp Pulse Resp B/P (MAP) Pulse Ox O2 Delivery O2 Flow Rate FiO2 11/10/24 11:52 105 30 106/73 (84) 91 11/10/24 07:30 Nasal Cannula* 4 36 11/09/24 23:15 98.2 98.2 Physical Exam General Appearance: Cooperative. No acute distress. Jaundiced sclera Pulmonary/Respiratory: Diminished breath sounds bilaterally Cardiovascular/Chest: Irregularly irregular rate and rhythm Peripheral Pulses: 2+ Radial (R). 2+ Radial (L). 2+ Pedal (R). 2+ Pedal (L) Abdominal Exam: Normal bowel sounds. Ankle Exam: Negative ankle edema Lower extremities: Negative lower extremity edema Neuro/Mental Status: A/OX2, confused Thoughts/Psych: Deferred Appearance: No acute distress. Skin Exam: Normal inspection. Normal color. Warm and dry. Labs/Diagnostic Data Labs Test 11/10/24 12:47 11/10/24 10:09 11/10/24 08:40 11/10/24 04:45 Range/Units Prothrombin Time 13.7 H 9.3-11.8 sec Prothrombin Time INR 1.33 H 0.9-1.15 Direct Bilirubin 4.0 H <0.3 mg/dL C-Reactive Protein High Sensitivity > 20.00 H <1.0 mg/dL Lipase 68 H 12-53 U/L Urine Color Dark-yellow Yellow Urine Clarity Ex.turbid Clear Urine pH 5.5 5.0-9.0 Urine Specific [place] 1.019 1.001-1.035 Urine Protein 1+ H Negative Urine Ketones Negative Negative Urine Blood 2+ H Negative /uL Urine Nitrite Negative Negative Urine Bilirubin 2+ Negative Urine Urobilinogen 6 Negative mg/dL Urine Leukocyte Esterase Negative Negative /uL Urine RBC 1 0 - 3 /hpf Urine Microscopic WBC 4 H 0-3 /HPF Urine Squamous Epithelial Cells None seen <5 /hpf Urine Amorphous Crystals Few None Seen /hpf Urine Bacteria Few H None Seen /hpf Urine Mucus Few None Seen Urine Glucose Normal Normal mg/dL Test 11/10/24 01:43 11/10/24 01:02 11/09/24 22:57 Range/Units Troponin I High Sensitivity 92 *H </=54 ng/L Lactic Acid Level 2.7 *H 0.4-2.0 mmol/L White Blood Count 31.2 *H 4.4-10.8 10^3/uL Red Blood Count 5.13 4.5-5.90 10^6/uL Hemoglobin 15.1 13.5-17.5 g/dL Hematocrit 45.3 41.0-53.0 % Mean Corpuscular Volume 88.2 80.0-100.0 fL Mean Corpuscular Hemoglobin 29.4 28.0-32.0 pg Mean Corpuscular Hemoglobin Concent 33.4 32.0-36.0 g/dL Red Cell Distribution Width 14.8 H 11.8-14.3 % Platelet Count 333 140-450 10^3/uL Mean Platelet Volume 9.3 6.9-10.8 fL Neutrophils (%) (Auto) 37.0-80.0 % Lymphocytes (%) (Auto) 10.0-50.0 % Monocytes (%) (Auto) 0.0-12.0 % Basophils (%) (Auto) 0.0-2.0 % Neutrophils # (Auto) 1.6-8.6 10 ^3/uL Lymphocytes # (Auto) 0.4-5.4 10 ^3/uL Monocytes # (Auto) 0-1.3 10 ^3/uL Differential Total Cells Counted 100.0 100 Neutrophils % (Manual) 95 H 37.0-80.0 Band Neutrophils % (Manual) 2 Lymphocytes % (Manual) 2 L 10.0-50.0 Monocytes % (Manual) 0 0-12 Eosinophils % (Manual) 0 0-7 Basophils % (Manual) 0 0.0-2.0 Metamyelocytes % (manual) 1 Myelocytes % (Manual) 0 Promyelocytes % (Manual) 0 Blast Cells % (Manual) 0 Nucleated Red Blood Cells 1.0 % Reactive Lymphocytes 0 Platelet Estimate Adequate Giant Platelets Few Total Bilirubin 4.5 H 0.2-1.0 mg/dL Aspartate Amino Transferase (AST) 339 H 13-40 U/L Alanine Aminotransferase (ALT) 152 H 7-40 U/L Alkaline Phosphatase 147 H 46-116 U/L B-Type Natriuretic Peptide 45.66 0-100 pg/mL Total Protein 6.9 5.7-8.2 g/dL Albumin 3.8 3.2-4.8 g/dL Assessment Atrial fibrillation with rapid ventricular response NSTEMI, likely type II secondary to above Rule out structural heart disease Pneumonia Hypertension Transaminitis Acute kidney injury Severe alcohol abuse Plan/Recommendation We will continue with the following plan/recommendations (Dr. David): * Transthoracic echocardiogram to evaluate cardiac function * ?[id number] VASc score: 3 points, HAS-BLED score: 2 points * Therapeutic Lovenox, transition back to NOAC prior to discharge * Beta-hayes for rate control, up-titrate as tolerated * Avoid antiarrhythmic agent at this time given transaminitis and patient noncompliance with NOAC therapy * Monitor and replete electrolytes as needed, keep potassium greater than four and magnesium greater than two * Close Cardiac surveillance * Nephrology consult and recommendations Case discussed with . Continue with rate control. Recommend to consider appropriate specialists consulted on this case such as GI. Thank you for allowing us to care for this patient. Please call with any questions or concerns. Critical care time spent: 44 minutes This medical document was created using an electronic medical record system with voice recognition software and computerized dictation system. Although this document has been carefully reviewed, there might still be some phonetic and typographical errors. Occasional wrong-word or ``sound-alike substitutions may have occurred due to the inherent limitations of voice recognition software. These areas are purely typographical due to imperfections of the software programs and do not reflect any compromise in the patient's medical care. Please read the chart carefully and recognize, using context, where these substitutions have occurred. Plan discussed with: Patient NYHA Physical activity limitations: NA Date of Service: Nov 10, 2024 Billing Provider: MINH DOAN Cardiology Common Codes: 29734-[id number] INP/OBS CARE (High) Cardiology Consultation Codes: 64366-[id number] CONSULT <45MIN MINH DOAN Nov 10, 2024 14:05
--- NOTE | 2024-11-10 14:48 | DVHINCON2 ---
Date of service: Nov 10, 2024 Reason for Consultation ACUTE KIDNEY INJURY History of Present Illness 79-year-old male poor historian past medical history of hypertension, atrial fibrillation presents to the hospital with change in mental state. Patient was admitted due to hemodynamic instability was found to have atrial fibrillation with rapid ventricular response and lactic acidosis. Nephrology consulted due to elevated creatinine level. No recent labs for comparison however 10 years ago patient had normal renal function Allergies: Coded Allergies: NO KNOWN ALLERGIES (Unverified , 11/09/24) Current Medications Current Medications Medications (Trade) Dose Ordered Sig/Dennis Route PRN Reason Start Time Stop Time Status Last Admin Ondansetron HCl (Zofran) 4 mg Q4HP PRN IV NAUSEA / VOMITING 11/10/24 09:45 Nitroglycerin (Ntrostat Sublingual) 0.4 mg Q5MINP PRN SL FOR CHEST PAIN 11/10/24 09:45 Morphine Sulfate 2 mg Q30M PRN IV FOR CHEST PAIN 11/10/24 09:45 Metoprolol Tartrate (Lopressor Tablet) 25 mg BID PO 11/10/24 10:00 11/10/24 10:26 Apixaban (Eliquis) 5 mg BID PO 11/10/24 10:00 11/10/24 11:02 DC 11/10/24 10:49 Vancomycin HCl 0 ml @ 0 mls/hr UD IV 11/10/24 10:15 Cefepime HCl 50 ml @ 12.5 mls/hr Q12HR IV 11/10/24 10:24 11/10/24 10:29 Multivitamins/ Minerals (Mvi W/ Minerals Tablet) 1 tab DAILY PO 11/10/24 10:15 11/10/24 10:46 Thiamine HCl 100 mg DAILY PO 11/10/24 10:15 11/10/24 10:49 Folic Acid 1 mg DAILY PO 11/10/24 10:15 11/10/24 10:46 Enoxaparin Sodium (Lovenox) 40 mg DAILY SC 11/10/24 11:00 Sodium Chloride 1,000 ml @ 125 mls/hr Q8H IV 11/10/24 11:00 11/10/24 11:30 Review of Systems Weakness and change in mental state H&P Exam Vital Signs/I&O Vital Sign Date Time Temp Pulse Resp B/P (MAP) Pulse Ox O2 Delivery O2 Flow Rate FiO2 11/10/24 11:52 105 30 106/73 (84) 91 11/10/24 07:30 Nasal Cannula* 4 36 11/09/24 23:15 98.2 98.2 Intake and Output 11/09/24 11/10/24 19:00 07:00 Intake Total 4200 ml Output Total 300 ml Balance 3900 ml Intake IV Total 4200 ml Output Urine Total 300 ml Physical Exam [id number] confused male Appears disheveled Mild elevated JVD Mild respiratory distress with expiratory wheezes Large distended abdomen Irregular irregular rate and rhythm No murmur 1+ bilateral ankle edema Labs/Diagnostic Data Labs/Diagnostic Data Laboratory Tests Test 11/10/24 12:47 11/10/24 10:09 11/10/24 08:40 11/10/24 04:45 Range/Units Sodium Level 129 #L 136-145 mmol/L Potassium Level 4.8 3.5-5.1 mmol/L Chloride Level 110 H 98-107 mmol/L Carbon Dioxide Level 18 L 20-31 mmol/L Anion Gap 1 L 5-15 Blood Urea Nitrogen 85 *H 9-23 mg/dL Creatinine 1.91 H 0.700-1.30 mg/dL Glomerular Filtration Rate Calc 35 >90 mL/min BUN/Creatinine Ratio 44.5 H 10.0-20.0 Serum Glucose 97 74-106 mg/dL Calcium Level 7.5 L 8.7-10.4 mg/dL Prothrombin Time 13.7 H 9.3-11.8 sec Prothrombin Time INR 1.33 H 0.9-1.15 Direct Bilirubin 4.0 H <0.3 mg/dL C-Reactive Protein High Sensitivity > 20.00 H <1.0 mg/dL Lipase 68 H 12-53 U/L Urine Color Dark-yellow Yellow Urine Clarity Ex.turbid Clear Urine pH 5.5 5.0-9.0 Urine Specific [place] 1.019 1.001-1.035 Urine Protein 1+ H Negative Urine Ketones Negative Negative Urine Blood 2+ H Negative /uL Urine Nitrite Negative Negative Urine Bilirubin 2+ Negative Urine Urobilinogen 6 Negative mg/dL Urine Leukocyte Esterase Negative Negative /uL Urine RBC 1 0 - 3 /hpf Urine Microscopic WBC 4 H 0-3 /HPF Urine Squamous Epithelial Cells None seen <5 /hpf Urine Amorphous Crystals Few None Seen /hpf Urine Bacteria Few H None Seen /hpf Urine Mucus Few None Seen Urine Glucose Normal Normal mg/dL Urine Opiates Screen Neg NEGATIVE Urine Fentanyl Screen Neg NEGATIVE Urine Barbiturates Screen Neg NEGATIVE Urine Phencyclidine Screen Neg NEGATIVE Urine Amphetamines Screen Neg NEGATIVE Urine Benzodiazepines Screen Neg NEGATIVE Urine Cocaine Screen Neg NEGATIVE Urine Cannabinoids Screen Neg NEGATIVE Test 11/10/24 01:43 11/10/24 01:02 11/09/24 23:46 11/09/24 22:57 Range/Units Troponin I High Sensitivity 92 *H 104 *H 109 *H </=54 ng/L Lactic Acid Level 2.7 *H 3.7 *H 0.4-2.0 mmol/L White Blood Count 31.2 *H 4.4-10.8 10^3/uL Red Blood Count 5.13 4.5-5.90 10^6/uL Hemoglobin 15.1 13.5-17.5 g/dL Hematocrit 45.3 41.0-53.0 % Mean Corpuscular Volume 88.2 80.0-100.0 fL Mean Corpuscular Hemoglobin 29.4 28.0-32.0 pg Mean Corpuscular Hemoglobin Concent 33.4 32.0-36.0 g/dL Red Cell Distribution Width 14.8 H 11.8-14.3 % Platelet Count 333 140-450 10^3/uL Mean Platelet Volume 9.3 6.9-10.8 fL Neutrophils (%) (Auto) 37.0-80.0 % Lymphocytes (%) (Auto) 10.0-50.0 % Monocytes (%) (Auto) 0.0-12.0 % Basophils (%) (Auto) 0.0-2.0 % Neutrophils # (Auto) 1.6-8.6 10 ^3/uL Lymphocytes # (Auto) 0.4-5.4 10 ^3/uL Monocytes # (Auto) 0-1.3 10 ^3/uL Differential Total Cells Counted 100.0 100 Neutrophils % (Manual) 95 H 37.0-80.0 Band Neutrophils % (Manual) 2 Lymphocytes % (Manual) 2 L 10.0-50.0 Monocytes % (Manual) 0 0-12 Eosinophils % (Manual) 0 0-7 Basophils % (Manual) 0 0.0-2.0 Metamyelocytes % (manual) 1 Myelocytes % (Manual) 0 Promyelocytes % (Manual) 0 Blast Cells % (Manual) 0 Nucleated Red Blood Cells 1.0 % Reactive Lymphocytes 0 Platelet Estimate Adequate Giant Platelets Few Sodium Level 141 136-145 mmol/L Potassium Level 5.0 3.5-5.1 mmol/L Chloride Level 106 98-107 mmol/L Carbon Dioxide Level 22 20-31 mmol/L Anion Gap 13 5-15 Blood Urea Nitrogen 89 *H 9-23 mg/dL Creatinine 2.23 H 0.700-1.30 mg/dL Glomerular Filtration Rate Calc 29 >90 mL/min BUN/Creatinine Ratio 39.9 H 10.0-20.0 Serum Glucose 147 H 74-106 mg/dL Calcium Level 8.3 L 8.7-10.4 mg/dL Total Bilirubin 4.5 H 0.2-1.0 mg/dL Aspartate Amino Transferase (AST) 339 H 13-40 U/L Alanine Aminotransferase (ALT) 152 H 7-40 U/L Alkaline Phosphatase 147 H 46-116 U/L B-Type Natriuretic Peptide 45.66 0-100 pg/mL Total Protein 6.9 5.7-8.2 g/dL Albumin 3.8 3.2-4.8 g/dL Assessment 79-year-old male presents to the hospital with altered mental status was found to be hemodynamically compromised with atrial fibrillation rapid ventricular response. Nephrology consulted due to acute kidney injury Acute kidney injury hemodynamically mediated Atrial fibrillation with rapid ventricular response Lactic acidosis in the setting of hypoperfusion Transaminitis likely in the setting of alcohol abuse Altered mental state COPD Recommend main obtain mean arterial pressure greater than 65 Avoid hypotension Recommend nebulizer treatments Diuretics Cardiology evaluation Recommend rate control Strict Is&Os Avoid NSAIDs and avoid nonsteroidal anti-inflammatory drugs at this time Replace electrolytes Guarded prognosis care time 75mins Plan discussed with: Patient FELIPA ANGELES MD Nov 10, 2024 14:48
[2024-11-10 15:10] LABS: Base Excess -7.0 mmol/L (-2.0-3.0)
[2024-11-10] MEDS: SODIUM BICARB 8.4% 50Meq/50ml SYR Vial IV ONE (15:24)
[2024-11-10] MEDS ORDERED: ALBUTEROL SULF 2.5 MG/0.5ML(0.5%) NEB SOLN NEB SCH (16:30)
[2024-11-10] MEDS: IPRATROPIUM BROM 0.5 MG/2.5ML INH SOL NEB SCH (18:29)
[2024-11-10] MEDS: ALBUTEROL SULF 2.5 MG/0.5ML(0.5%) NEB SOLN NEB SCH (18:29)
[2024-11-10 19:06] LABS: Hemoglobin 13.1 g/dL (13.5-17.5)
[2024-11-10 19:07] LABS: Hematocrit 39.5 % (41.0-53.0); Mean Corpuscular Hemoglobin 29.3 pg (28.0-32.0); Mean Corpuscular Volume 88.3 fL (80.0-100.0)
[2024-11-10 19:17] LABS: Lactic Acid w/Reflex 2.3 mmol/L (0.4-2.0)
[2024-11-10 20:15] LABS: Total Cells Counted 100.0 (100)
[2024-11-10] MEDS ORDERED: ACETAMINOPHEN 325 MG TAB PO PRN (21:15)
[2024-11-10] MEDS: ENOXAPARIN SOD 100 MG/1 ML SYRINGE SC SCH (21:47)
[2024-11-10] MEDS: IBUPROFEN 600 MG TAB PO PRN (22:03)
[2024-11-11] VITALS (103 sets, daily range): BP systolic 67–129; BP diastolic 29–80; PULSE 70–145; RESP 15–40; TEMP 96.6–100.8; O2SAT 90–100
[2024-11-11] MEDS: SODIUM CHLORIDE 0.9% 500 ML IV ONE (00:57)
[2024-11-11] MEDS: NOREPINEPHRINE 8 MG/250ML KIT 250 ML IV SCH (01:35)
[2024-11-11 04:59] LABS: Hemoglobin 12.9 g/dL (13.5-17.5)
[2024-11-11 05:00] LABS: Hematocrit 38.1 % (41.0-53.0); Mean Corpuscular Hemoglobin 30.0 pg (28.0-32.0); Mean Corpuscular Volume 88.7 fL (80.0-100.0)
[2024-11-11 05:18] LABS: Alkaline Phosphatase 110 U/L (46-116); Anion Gap 12 (5-15); BUN/Creatinine Ratio 43.0 (10.0-20.0); Potassium 4.3 mmol/L (3.5-5.1)
[2024-11-11 05:26] LABS: Alanine Aminotransferase 80 U/L (7-40); Albumin 2.8 g/dL (3.2-4.8); Bilirubin, Total 3.3 mg/dL (0.2-1.0); Calcium 6.9 mg/dL (8.7-10.4); Carbon Dioxide 20 mmol/L (20-31); Chloride 113 mmol/L (98-107); Glucose 126 mg/dL (74-106); Sodium 145 mmol/L (136-145); Total Protein 5.4 g/dL (5.7-8.2)
[2024-11-11 05:27] LABS: Blood Urea Nitrogen 98 mg/dL (9-23)
[2024-11-11] MEDS: IPRATROPIUM BROM 0.5 MG/2.5ML INH SOL NEB SCH (05:29)
[2024-11-11] MEDS: ALBUTEROL SULF 2.5 MG/0.5ML(0.5%) NEB SOLN NEB SCH (05:29)
[2024-11-11 06:03] LABS: Smudge Cells 2 /100 WBC; Total Cells Counted 100.0 (100)
--- NOTE | 2024-11-11 09:19 | DVHPN2 ---
Progress Note Date Seen: Nov 11, 2024 Resident Creating Document: LOKI MASON RESIDENT Medical Necessity Reason Pt with a Central, PICC or Fol: Yes The following are medically ne: Mendiola Catheter Subjective Review of Systems This is a 79-year-old male with atrial fibrillation, hypertension, chronic alcohol dependence who presented to the ER for the evaluation of altered level of consciousness and shortness of breaths associated with cough. Per chart review, patient was confused. On my evaluation, patient is A&O x2, oriented to name and place. No family at bedside. On arrival, EKG showed AFib with RVR. Troponins 109 and downtrending. Nephrology consulted for CORINA Overnight patient has febrile T-max 100.8 F, hypotensive requiring Levophed at 4 mcg/hour. He is also requiring 2 L oxygen supplementation. Patient seen and examined in [facility]. On Levophed, nasal cannula supplementation, has left sided crackles. Patient is oliguric, 270 cc of urine overnight. Objective vital signs Vital Sign Date Time Temp Pulse Resp B/P (MAP) Pulse Ox O2 Delivery O2 Flow Rate FiO2 11/11/24 09:00 87 18 98/62 (74) 95 11/11/24 08:00 Nasal Cannula* 2 28 11/11/24 08:00 96.6 96.6 Total Intake and Output 11/10/24 11/10/24 11/11/24 15:00 23:00 07:00 Intake Total 375 ml 1250 ml 1625 ml Output Total 275 ml Balance 375 ml 1250 ml 1350 ml medications Current Medications Medications Dose Ordered Sig/Dennis Route Start Time Stop Time Status Last Admin Dose Admin Ondansetron HCl 4 mg Q4HP PRN IV 11/10/24 09:45 Nitroglycerin 0.4 mg Q5MINP PRN SL 11/10/24 09:45 Morphine Sulfate 2 mg Q30M PRN IV 11/10/24 09:45 Metoprolol Tartrate 25 mg BID PO 11/10/24 10:00 11/10/24 21:47 25 MG Vancomycin HCl 0 ml @ 0 mls/hr UD IV 11/10/24 10:15 Cefepime HCl 50 ml @ 12.5 mls/hr Q12HR IV 11/10/24 10:24 11/10/24 21:47 12.5 MLS/HR Multivitamins/ Minerals 1 tab DAILY PO 11/10/24 10:15 11/10/24 10:46 1 TAB Thiamine HCl 100 mg DAILY PO 11/10/24 10:15 11/10/24 10:49 100 MG Folic Acid 1 mg DAILY PO 11/10/24 10:15 11/10/24 10:46 1 MG Sodium Chloride 1,000 ml @ 125 mls/hr Q8H IV 11/10/24 11:00 11/11/24 06:32 125 MLS/HR Enoxaparin Sodium 100 mg Q12HR SC 11/10/24 22:00 11/10/24 21:47 100 MG Ibuprofen 600 mg Q6HP PRN PO 11/10/24 21:45 11/10/24 22:03 600 MG Albuterol 2.5 mg Q4HWA [facility] 11/11/24 06:00 11/11/24 05:29 2.5 MG Ipratropium [place] 0.5 mg Q4HWA [facility] 11/11/24 06:00 11/11/24 05:29 0.5 MG Norepinephrine Bitartrate 250 ml @ 3.75 mls/hr Q24H IV 11/11/24 01:30 11/11/24 01:35 3.75 MLS/HR Examination Patient lying in bed, in no acute distress General: Obese, palor, mucosae are moist Cardiovascular: Tachycardic and irregular S1 and S2. No murmurs, gallops or rubs. No JVD elevation. 1+ bilateral pitting edema Respiratory: Left-sided crackles heard on auscultation, saturating 94 on 2 L Abdomen: Soft, nontender, nondistended, normoactive bowel sounds, no rebound tenderness, no organomegaly, no masses Genitourinary: Mendiola catheter draining dark urine 20 cc. MSK/skin: Mobilizes 4 limbs. Skin is dry and warm Neurological: No motor, no sensitive deficits, normal speech. Pupils are isocoric and reactive. Psych/Mental Status: A/Ox2 laboratory and microbiology Laboratory Tests 11/11/24 04:35 Test 11/11/24 04:35 Range/Units Serum Glucose 126 H 74-106 mg/dL Microbiology Date/Time Source Procedure Growth Status 11/10/24 18:02 Urine - [place] Urine Culture - Preliminary Resulted 11/09/24 23:06 Blood Blood Culture - Preliminary Resulted Labs and/or images reviewed: Labs reviewed by me, Image(s) reviewed by me Problem List/Assessment/Plan Problem List/Assessment/Plan Acute kidney injury likely vasomotor in the setting of sepsis Oliguria secondary to above Hyperkalemia Hypotension requiring pressor support ALOC likely secondary to sepsis Sepsis due to pneumonia, Gram-positive and negative Atrial fibrillation with RVR Lactic acidosis Hypothyroidism Transaminitis likely alcoholic hepatitis Chronic alcoholic dependence Obesity Plan: FENA 0.1%, likely prerenal CORINA secondary to sepsis. Agree with volume expansion at this time. Started IV LR 150 cc/hour. Baseline creatinine unknown, abdominal ultrasound shows echogenicity is normal in kidneys DC Motrin, avoid NSAIDs given CORINA Recommend cooling measures Continue IV antibiotics and panculture Therapeutic Lovenox per Cardiology We will continue to monitor the patient Thank you for consulting Nephrology Plan discussed with patient, nurse in which all questions have been answered Case discussed with Dr. Kearney Plan discussed with: Patient, Other (Nurse) LOKI MASON RESIDENT Nov 11, 2024 09:19
[2024-11-11 10:51] LABS: Hepatitis B Surface Antigen Negative (Negative); Hepatitis C Antibody Negative (Negative)
--- NOTE | 2024-11-11 10:53 | DVHPN2 ---
Consult Progress Note Subjective Other Systems: Atrial fibrillation with controlled rate Objective vital signs Vital Sign Date Time Temp Pulse Resp B/P (MAP) Pulse Ox O2 Delivery O2 Flow Rate FiO2 11/11/24 10:30 120 19 101/62 (75) 94 11/11/24 10:00 Nasal Cannula* 2 28 11/11/24 08:00 96.6 96.6 Total Intake and Output 11/10/24 11/10/24 11/11/24 15:00 23:00 07:00 Intake Total 375 ml 1250 ml 1625 ml Output Total 275 ml Balance 375 ml 1250 ml 1350 ml medications Current Medications Medications Dose Ordered Sig/Dennis Route Start Time Stop Time Status Last Admin Dose Admin Ondansetron HCl 4 mg Q4HP PRN IV 11/10/24 09:45 Nitroglycerin 0.4 mg Q5MINP PRN SL 11/10/24 09:45 Morphine Sulfate 2 mg Q30M PRN IV 11/10/24 09:45 Vancomycin HCl 0 ml @ 0 mls/hr UD IV 11/10/24 10:15 Cefepime HCl 50 ml @ 12.5 mls/hr Q12HR IV 11/10/24 10:24 11/11/24 09:46 12.5 MLS/HR Multivitamins/ Minerals 1 tab DAILY PO 11/10/24 10:15 11/11/24 09:45 1 TAB Thiamine HCl 100 mg DAILY PO 11/10/24 10:15 11/11/24 09:45 100 MG Folic Acid 1 mg DAILY PO 11/10/24 10:15 11/11/24 09:45 1 MG Sodium Chloride 1,000 ml @ 125 mls/hr Q8H IV 11/10/24 11:00 11/11/24 06:32 125 MLS/HR Enoxaparin Sodium 100 mg Q12HR SC 11/10/24 22:00 11/11/24 09:46 100 MG Albuterol 2.5 mg Q4HWA [facility] 11/11/24 06:00 11/11/24 09:42 2.5 MG Ipratropium [place] 0.5 mg Q4HWA [facility] 11/11/24 06:00 11/11/24 09:42 0.5 MG Norepinephrine Bitartrate 250 ml @ 3.75 mls/hr Q24H IV 11/11/24 01:30 11/11/24 01:35 3.75 MLS/HR Examination: GENERAL:Abnormal (Generalized weakness), LUNGS:Normal, CVS:Normal (Atrial fibrillation), NEURO:Abnormal (Periods of confusion) laboratory and microbiology Laboratory Tests 11/11/24 04:35 Test 11/11/24 04:35 Range/Units Serum Glucose 126 H 74-106 mg/dL Problem List/Assessment/Plan Problem List/Assessment/Plan Atrial fibrillation with rapid ventricular response NSTEMI, likely type II secondary to above Rule out structural heart disease Pneumonia Hypertension Transaminitis Acute kidney injury Severe alcohol abuse Plan/Recommendations (Dr. David): * Transthoracic echocardiogram to evaluate cardiac function * Vasopressors for hemodynamic support * ?[id number] VASc score: 3 points, HAS-BLED score: 2 points * Therapeutic Lovenox, transition back to NOAC prior to discharge * Avoid antiarrhythmic agent at this time given transaminitis and patient noncompliance with NOAC therapy * Monitor and replete electrolytes as needed, keep potassium greater than four and magnesium greater than two * Close Cardiac surveillance * Nephrology consult and recommendations Case discussed with . Patient became hypotensive overnight and has been started on Levophed. Patient remains in atrial fibrillation with controlled rate at time of assessment. Thank you for allowing us to care for this patient. Please call with any questions or concerns. Critical care time spent: 44 minutes This medical document was created using an electronic medical record system with voice recognition software and computerized dictation system. Although this document has been carefully reviewed, there might still be some phonetic and typographical errors. Occasional wrong-word or ``sound-alike substitutions may have occurred due to the inherent limitations of voice recognition software. These areas are purely typographical due to imperfections of the software programs and do not reflect any compromise in the patient's medical care. Please read the chart carefully and recognize, using context, where these substitutions have occurred. Plan discussed with: Patient, Other (Bedside RN) Date of Service: Nov 11, 2024 Billing Provider: MINH DOAN Common Visit Codes: [id number] CARE 30-74 MIN MINH DOAN Nov 11, 2024 10:53
[2024-11-11] MEDS: VANCOMYCIN 1GM/250ML KIT 250 ML IV ONE (11:03)
[2024-11-11 11:26] LABS: Protein, Urine 113.0 mg/dL (1-14)
[2024-11-11 11:40] LABS: Lactic Acid w/Reflex 2.3 mmol/L (0.4-2.0)
--- NOTE | 2024-11-11 11:45 | DVHPNRES ---
Progress Note Date Seen: Nov 11, 2024 Resident Creating Document: SHARYN YI RESIDENT Medical Necessity Reason Pt with a Central, PICC or Fol: Yes The following are medically ne: Mendiola Catheter Subjective Review of Systems This is a 79-year-old male with atrial fibrillation, hypertension, chronic alcohol dependence who presented to the ER for the evaluation of altered level of consciousness and shortness of breaths associated with cough. Initially patient was confused ,septic and EKG revealed AFib with RVR. Troponin was mildly elevated to 109 and downtrending . Overnight patient has febrile T-max 100.8 F, hypotensive requiring Levophed at 2 mcg/hour. He is also requiring 2 L oxygen supplementation. Patient seen and examined in [facility]. He is alert and oriented x3. Family is on the bed side. On Levophed, nasal cannula supplementation, has left sided crackles. Patient is oliguric, 270 cc of urine overnight. Constitutional: Malaise, weakness. Eyes: No: Pain, Vision change, Conjunctivae inflammation, Eyelid inflammation, Other, Redness ENT: No: Ear pain, Ear discharge, Nose pain, Nose discharge, Nose congestion, Mouth pain, Mouth swelling, Throat pain, Throat swelling, Other Respiratory: Shortness of breath, Cough, Sputum, No Dry,Wheezing, Hemoptysis, Pleuritic Pain, Other Cardiovascular: No: Chest Pain, Palpitations, Orthopnea, Paroxysmal Noc. Dyspnea, Edema, Lt Headedness, Other Gastrointestinal: No: Nausea, Vomiting, Abdominal Pain, Diarrhea, Constipation, Melena, Hematochezia, Other Musculoskeletal: No: other, neck pain, shoulder pain, arm pain, back pain, hand pain, leg pain, foot pain Neurological:; No: Weakness, Numbness, Incoordination, Change in speech, Confusion, Seizures Objective vital signs Vital Sign Date Time Temp Pulse Resp B/P (MAP) Pulse Ox O2 Delivery O2 Flow Rate FiO2 11/11/24 11:22 90/63 (72) 11/11/24 11:15 106 20 93 11/11/24 10:00 Nasal Cannula* 2 28 11/11/24 08:00 96.6 96.6 Total Intake and Output 11/10/24 11/10/24 11/11/24 14:59 22:59 06:59 Intake Total 375 ml 1125 ml 1610 ml Output Total 275 ml Balance 375 ml 1125 ml 1335 ml medications Current Medications Medications Dose Ordered Sig/Dennis Route Start Time Stop Time Status Last Admin Dose Admin Ondansetron HCl 4 mg Q4HP PRN IV 11/10/24 09:45 Nitroglycerin 0.4 mg Q5MINP PRN SL 11/10/24 09:45 Morphine Sulfate 2 mg Q30M PRN IV 11/10/24 09:45 Vancomycin HCl 0 ml @ 0 mls/hr UD IV 11/10/24 10:15 Cefepime HCl 50 ml @ 12.5 mls/hr Q12HR IV 11/10/24 10:24 11/11/24 09:46 12.5 MLS/HR Multivitamins/ Minerals 1 tab DAILY PO 11/10/24 10:15 11/11/24 09:45 1 TAB Thiamine HCl 100 mg DAILY PO 11/10/24 10:15 11/11/24 09:45 100 MG Folic Acid 1 mg DAILY PO 11/10/24 10:15 11/11/24 09:45 1 MG Sodium Chloride 1,000 ml @ 125 mls/hr Q8H IV 11/10/24 11:00 11/11/24 06:32 125 MLS/HR Enoxaparin Sodium 100 mg Q12HR SC 11/10/24 22:00 11/11/24 09:46 100 MG Albuterol 2.5 mg Q4HWA [facility] 11/11/24 06:00 11/11/24 09:42 2.5 MG Ipratropium [place] 0.5 mg Q4HWA [facility] 11/11/24 06:00 11/11/24 09:42 0.5 MG Norepinephrine Bitartrate 250 ml @ 3.75 mls/hr Q24H IV 11/11/24 01:30 11/11/24 01:35 3.75 MLS/HR Examination Physical examination: General Appearance: Alert, Oriented X3, Cooperative, mild distress. HEENT: Atraumatic, PERRLA, EOMI, Mucous membrane moist/pink Respiratory: Left sided ronchi, crackles. Cardiovascular: Irregular rate, Normal S1, Normal S2, No murmurs, no chest wall tenderness Abdominal: Normal bowel sounds, Soft, No tenderness, No hepatospenomegaly, No masses Extremities: 1+ pedal edema, No clubbing, No cyanosis, Normal pulses, No tenderness/swelling Skin: No rashes, No breakdown, No significant lesion Neuro: Normal gait, Normal speech, Strength at 5/5 X4 ext, Normal tone, Sensation intact, Cranial nerves 3-12 NL, Reflexes 2+ Psych/Mental Status: Mental status NL, Mood NL laboratory and microbiology Laboratory Tests 11/11/24 04:35 Test 11/11/24 04:35 Range/Units Serum Glucose 126 H 74-106 mg/dL Microbiology Date/Time Source Procedure Growth Status 11/10/24 18:02 Urine - [place] Urine Culture - Preliminary Resulted 11/09/24 23:06 Blood Blood Culture - Preliminary Resulted Labs and/or images reviewed: Labs reviewed by me, Image(s) reviewed by me Problem List/Assessment/Plan Problem List/Assessment/Plan NEURO: Acute metabolic encephalopathy likely due to sepsis Is on 2 L oxygen with saturation 97% CARDIOVASCULAR: Septic Shock secondary to pneumonia Atrial fibrillation with RVR and secondary hypercoagulable state NSTEMI type 2 likely secondary to above - initial EKG revealed AFib with RVR - Troponin trends are 109>104>92 - cardiology on board - [id number]- VASc score 3 and HAS BLED score 2 - Patient is on Levophed at 2 - Hold rate control medication because of the hypotension - Therapeutic Lovenox at 1 milligram/kg body weight 12 hrly PULMONARY: Possible aspiration pneumonia Possible gram positive/Gram-negative pneumonia - CT chest showed left lower lobe consolidation, suggestive of infectious process - Medneb with ipratropium and albuterol q.4 hours - IV cefepime 1 g q.12 hours and IV vancomycin as per pharmacy GASTROINTESTINAL: Hyperbilirubinemia with transaminitis likely due to sepsis Coagulopathy likely due to sepsis Mildly elevated lipase GENITOURINARY: CORINA secondary to hemodynamically mediated/VMN - FENa 0.1% likely pre renal - IV normal saline 1 L bolus - nephrology on board - toxic medication - strict I&O METABOLIC: Obesity class 1, BMI 34.7 kg/m2 Moderate protein calorie malnutrition, albumin 2.8 INFECTIOUS DISEASE: Possible aspiration pneumonia Possible gram positive/Gram-negative pneumonia Sepsis with septic shock likely due to above Bacteremia likely due to sepsis Lactic acidosis likely due to sepsis - CT chest showed left lower lobe consolidation, suggestive of infectious process - Medneb with ipratropium and albuterol q.4 hours - IV cefepime 1 g q.12 hours and IV vancomycin as per pharmacy DIET: Cardiac diet DVT prophylax: Lovenox GI prophylaxis: Protonix Bowel regimen: Code status: Full code LINES/DRAINS/ACCESS: IV access: Peripheral line placed on 0 7/0 08/02 Drips: Levophed Mendiola catheter: placed on 0 7/0 08/02 DISPOSITION: [facility] Patient's status discussed with Family Critical care time spent more than 73 minutes, including patient care, chart review, and updating the family. Excluding any procedures Case discussed with Dr. Nicole Plan discussed with: Patient, Other (Family) Date of Service: Nov 11, 2024 Billing Provider: TOMAS NICOLE MD Common Visit Codes: [id number] CARE 30-74 MIN (crit care time 60 minutes) SHARYN YI RESIDENT Nov 11, 2024 11:44 TOMAS NICOLE MD Nov 12, 2024 16:47
[2024-11-11 11:55] LABS: COVID19 ANTIGEN SOFIA FIA NEGATIVE (NEGATIVE)
[2024-11-11] MEDS: LACTATED RINGER'S 1,000 ML IV SCH (12:53)
[2024-11-11] MEDS: SODIUM CHLORIDE 0.9% 1,000 ML IV ONE (14:43)
[2024-11-11] MEDS: PANTOPRAZOLE 40 MG TAB PO ONE (19:27)
[2024-11-11] MEDS: SODIUM CHLORIDE 0.9% 1,000 ML IV SCH (19:28)
[2024-11-12] VITALS (80 sets, daily range): BP systolic 86–147; BP diastolic 39–82; PULSE 11–193; RESP 18–34; TEMP 97.2–100.3; O2SAT 86–97
[2024-11-12 06:48] LABS: Anion Gap 14 (5-15); BUN/Creatinine Ratio 43.6 (10.0-20.0); Glucose 99 mg/dL (74-106); Potassium 4.2 mmol/L (3.5-5.1); Sodium 144 mmol/L (136-145)
[2024-11-12] MEDS: PANTOPRAZOLE 40 MG TAB PO SCH (06:53)
[2024-11-12 07:06] LABS: Alanine Aminotransferase 64 U/L (7-40); Albumin 2.5 g/dL (3.2-4.8); Alkaline Phosphatase 139 U/L (46-116); Bilirubin, Total 2.1 mg/dL (0.2-1.0); Calcium 7.2 mg/dL (8.7-10.4); Carbon Dioxide 18 mmol/L (20-31); Chloride 112 mmol/L (98-107); Total Protein 5.0 g/dL (5.7-8.2)
[2024-11-12 07:08] LABS: Blood Urea Nitrogen 105 mg/dL (9-23)
[2024-11-12 07:11] LABS: Lactic Acid w/Reflex 2.3 mmol/L (0.4-2.0)
[2024-11-12 07:20] LABS: Hematocrit 39.5 % (41.0-53.0); Hemoglobin 13.1 g/dL (13.5-17.5); Mean Corpuscular Hemoglobin 29.7 pg (28.0-32.0); Mean Corpuscular Volume 89.6 fL (80.0-100.0)
--- NOTE | 2024-11-12 08:06 | DVHPN2 ---
Progress Note Date Seen: Nov 12, 2024 Medical Necessity Reason Pt with a Central, PICC or Fol: Yes The following are medically ne: Mendiola Catheter Subjective Other Systems: off pressors more awake HR 130s Objective vital signs Vital Sign Date Time Temp Pulse Resp B/P (MAP) Pulse Ox O2 Delivery O2 Flow Rate FiO2 11/12/24 06:39 95 Nasal Cannula 3.0 11/12/24 06:39 114 25 11/12/24 06:39 32 11/12/24 06:30 90/58 (69) 11/12/24 04:00 99.0 99.0 Total Intake and Output 11/11/24 11/11/24 11/12/24 15:00 23:00 07:00 Intake Total 913.75 ml 1933.75 ml 1370 ml Output Total 270 ml 450 ml Balance 913.75 ml 1663.75 ml 920 ml medications Current Medications Medications Dose Ordered Sig/Dennis Route Start Time Stop Time Status Last Admin Dose Admin Ondansetron HCl 4 mg Q4HP PRN IV 11/10/24 09:45 Vancomycin HCl 0 ml @ 0 mls/hr UD IV 11/10/24 10:15 Cefepime HCl 50 ml @ 12.5 mls/hr Q12HR IV 11/10/24 10:24 11/11/24 21:41 12.5 MLS/HR Multivitamins/ Minerals 1 tab DAILY PO 11/10/24 10:15 11/11/24 09:45 1 TAB Thiamine HCl 100 mg DAILY PO 11/10/24 10:15 11/11/24 09:45 100 MG Folic Acid 1 mg DAILY PO 11/10/24 10:15 11/11/24 09:45 1 MG Enoxaparin Sodium 100 mg Q12HR SC 11/10/24 22:00 11/11/24 21:42 100 MG Albuterol 2.5 mg Q4HWA NEB 11/11/24 06:00 11/12/24 06:39 2.5 MG Ipratropium [place] 0.5 mg Q4HWA NEB 11/11/24 06:00 11/12/24 06:39 0.5 MG Norepinephrine Bitartrate 250 ml @ 3.75 mls/hr Q24H IV 11/11/24 01:30 11/11/24 01:35 3.75 MLS/HR Pantoprazole Sodium 40 mg DAILY@0600 PO 11/12/24 06:00 11/12/24 06:53 40 MG Sodium Chloride 1,000 ml @ 75 mls/hr [id number] IV 11/11/24 16:45 11/11/24 19:28 75 MLS/HR Examination: GENERAL:Abnormal, HEENT:Abnormal, LUNGS:Abnormal, CVS:Abnormal, ABDOMEN:Abnormal laboratory and microbiology Laboratory Tests 11/12/24 04:58 Test 11/12/24 04:58 Range/Units Serum Glucose 99 74-106 mg/dL Microbiology Date/Time Source Procedure Growth Status 11/10/24 18:02 Nose MRSA Screen - Final Complete 11/10/24 18:02 Urine - [place] Urine Culture - Preliminary Resulted 11/09/24 23:06 Blood Blood Culture - Preliminary Resulted Problem List/Assessment/Plan Problem List/Assessment/Plan severe sepsis jaundice etoh abuse liver failure afib rvr AMS start low dose BB when feasible if LFTs allow, can add po amiodarone afib will imporve once sepsis improves anticoag /lovenox please call for ?s will sign off Plan discussed with: Patient Date of Service: Nov 12, 2024 Billing Provider: BRY MATTA MD Common Visit Codes: NOT BILLABLE BRY MATTA MD Nov 12, 2024 08:06
[2024-11-12 08:39] LABS: Total Cells Counted 100.0 (100)
[2024-11-12] MEDS: SODIUM CHLORIDE 0.9% 500 ML IV ONE (09:44)
[2024-11-12] MEDS: METOPROLOL TARTRATE 25 MG TAB PO SCH (09:47)
[2024-11-12] MEDS: AMIODARONE HCL 200 MG TAB PO SCH (09:47)
--- NOTE | 2024-11-12 10:23 | DVHPN2 ---
Progress Note - Dictate Date Seen: Nov 12, 2024 Medical Necessity Reason Pt with a Central, PICC or Fol: Yes The following are medically ne: Mendiola Catheter Subjective Awake and alert this morning vital signs Vital Sign Date Time Temp Pulse Resp B/P (MAP) Pulse Ox O2 Delivery O2 Flow Rate FiO2 11/12/24 09:47 135 115/61 11/12/24 06:47 22 94 11/12/24 06:39 Nasal Cannula 3.0 11/12/24 06:39 32 11/12/24 04:00 99.0 99.0 Total Intake and Output 11/11/24 11/11/24 11/12/24 15:00 23:00 07:00 Intake Total 913.75 ml 1933.75 ml 1370 ml Output Total 270 ml 450 ml Balance 913.75 ml 1663.75 ml 920 ml medications Current Medications Medications Dose Ordered Sig/Dennis Route Start Time Stop Time Status Last Admin Dose Admin Ondansetron HCl 4 mg Q4HP PRN IV 11/10/24 09:45 Vancomycin HCl 0 ml @ 0 mls/hr UD IV 11/10/24 10:15 Cefepime HCl 50 ml @ 12.5 mls/hr Q12HR IV 11/10/24 10:24 11/11/24 21:41 12.5 MLS/HR Multivitamins/ Minerals 1 tab DAILY PO 11/10/24 10:15 11/12/24 09:47 1 TAB Thiamine HCl 100 mg DAILY PO 11/10/24 10:15 11/12/24 09:46 100 MG Folic Acid 1 mg DAILY PO 11/10/24 10:15 11/12/24 09:46 1 MG Enoxaparin Sodium 100 mg Q12HR SC 11/10/24 22:00 11/12/24 10:10 100 MG Albuterol 2.5 mg Q4HWA NEB 11/11/24 06:00 11/12/24 06:39 2.5 MG Ipratropium [place] 0.5 mg Q4HWA NEB 11/11/24 06:00 11/12/24 06:39 0.5 MG Norepinephrine Bitartrate 250 ml @ 3.75 mls/hr Q24H IV 11/11/24 01:30 11/11/24 01:35 3.75 MLS/HR Pantoprazole Sodium 40 mg DAILY@0600 PO 11/12/24 06:00 11/12/24 06:53 40 MG Sodium Chloride 1,000 ml @ 75 mls/hr [id number] IV 11/11/24 16:45 11/11/24 19:28 75 MLS/HR Metoprolol Tartrate 12.5 mg BID PO 11/12/24 10:00 11/12/24 09:47 12.5 MG Amiodarone HCl 200 mg Q12HR PO 11/12/24 10:00 11/12/24 09:47 200 MG objective Gen: nad heent: nc/at, mmm lungs: cta anteriorly cvs: no rub abd: soft, bowel sounds audible ext: no edema skin: no rash neuro: alert and oriented laboratory and microbiology Laboratory Tests 11/12/24 04:58 Test 11/12/24 04:58 Range/Units Serum Glucose 99 74-106 mg/dL Assessment/Plan Problem List/Assessment/Plan Acute kidney injury likely vasomotor in the setting of sepsis Oliguria secondary to above Hyperkalemia Hypotension requiring pressor support ALOC likely secondary to sepsis Sepsis due to pneumonia, Gram-positive and negative Atrial fibrillation with RVR Lactic acidosis Hypothyroidism Transaminitis likely alcoholic hepatitis Chronic alcoholic dependence Obesity Plan: - recommend continued volume expansion, low FENA - patient without significant signs of peripheral volume overload Plan discussed with: Other CLAUS FERNANDEZ MD Nov 12, 2024 10:23
--- NOTE | 2024-11-12 12:37 | DVH ---
CHEST RADIOGRAPH Indication: pneumonia Technique: Single frontal view of the chest was obtained COMPARISON: XY CHEST PORTABLE on DOS: 11/09/24 FINDINGS: Lines and Tubes: None Lungs: Opacification left mid and lower lung field. Probable small left pleural effusion. Mildly incr eased consolidation to the infiltrate in the left lung when compared to the prior study. No pneumothorax. Cardiomediastinal contours: Unremarkable Bones: Unremarkable IMPRESSION: 1. Mildly increasing left lung consolidation consistent with pneumonia
[2024-11-12] MEDS: VANCOMYCIN 500mg/100mL 100 ML IV ONE (14:37)
[2024-11-12] MEDS ORDERED: MEROPENEM 500MG IVPB 50 ML IV ONE (18:00)
[2024-11-12] MEDS: MEROPENEM 1GM IVPB 50 ML IV SCH (18:13)
[2024-11-12 18:52] LABS: Base Excess -10.3 mmol/L (-2.0-3.0)
[2024-11-12] MEDS: SODIUM BICARB 8.4% 50Meq/50ml SYR Vial IV ONE (19:46)
--- NOTE | 2024-11-12 20:30 | DVHPNRES ---
Progress Note Date Seen: Nov 12, 2024 Resident Creating Document: SHARYN YI RESIDENT Medical Necessity Reason Pt with a Central, PICC or Fol: Yes The following are medically ne: Mendiola Catheter Subjective Review of Systems This is a 79-year-old male with atrial fibrillation, hypertension, chronic alcohol dependence who presented to the ER for the evaluation of altered level of consciousness and shortness of breaths associated with cough. Initially patient was confused ,septic and EKG revealed AFib with RVR. Troponin was mildly elevated to 109 and downtrending . Patient has febrile T-max 100.8 F, and also requiring 3 L oxygen supplementation. Patient seen and examined in [facility]. He is alert and oriented x3. Family is on the bed side. Nasal cannula supplementation, has left sided crackles. output 750 mL in 12 hours. cardiology was on the board and started rate controlled with metoprolol tartrate 12.5 mg b.i.d., amiodarone 200 mg p.o. b.i.d. for AFib with RVR. Patient is tachypneic, labored breathing and recommended BiPAP p.r.n. as per pulmonology. Objective vital signs Vital Sign Date Time Temp Pulse Resp B/P (MAP) Pulse Ox O2 Delivery O2 Flow Rate FiO2 11/12/24 20:00 25 95 Nasal Cannula* 4 36 11/12/24 19:45 133 11/12/24 19:15 11/12/24 16:00 100.1 100.1 Total Intake and Output 11/11/24 11/11/24 11/12/24 15:00 23:00 07:00 Intake Total 913.75 ml 1933.75 ml 1370 ml Output Total 270 ml 450 ml Balance 913.75 ml 1663.75 ml 920 ml medications Current Medications Medications Dose Ordered Sig/Dennis Route Start Time Stop Time Status Last Admin Dose Admin Ondansetron HCl 4 mg Q4HP PRN IV 11/10/24 09:45 Vancomycin HCl 0 ml @ 0 mls/hr UD IV 11/10/24 10:15 Multivitamins/ Minerals 1 tab DAILY PO 11/10/24 10:15 11/12/24 09:47 1 TAB Thiamine HCl 100 mg DAILY PO 11/10/24 10:15 11/12/24 09:46 100 MG Folic Acid 1 mg DAILY PO 11/10/24 10:15 11/12/24 09:46 1 MG Enoxaparin Sodium 100 mg Q12HR SC 11/10/24 22:00 11/12/24 10:10 100 MG Albuterol 2.5 mg Q4HWA [facility] 11/11/24 06:00 11/12/24 14:30 2.5 MG Ipratropium [place] 0.5 mg Q4HWA [facility] 11/11/24 06:00 11/12/24 19:40 0.5 MG Norepinephrine Bitartrate 250 ml @ 3.75 mls/hr Q24H IV 11/11/24 01:30 11/11/24 01:35 3.75 MLS/HR Pantoprazole Sodium 40 mg DAILY@0600 PO 11/12/24 06:00 11/12/24 06:53 40 MG Sodium Chloride 1,000 ml @ 75 mls/hr [id number] IV 11/11/24 16:45 11/12/24 10:26 75 MLS/HR Metoprolol Tartrate 12.5 mg BID PO 11/12/24 10:00 11/12/24 09:47 12.5 MG Amiodarone HCl 200 mg Q12HR PO 11/12/24 10:00 11/12/24 09:47 200 MG Meropenem 50 ml @ 17 mls/hr Q12HR IV 11/12/24 22:00 UNV Meropenem 50 ml @ 17 mls/hr Q12H IV 11/12/24 18:00 11/12/24 18:13 17 MLS/HR Examination Physical examination: General Appearance: Alert, Oriented X3, Cooperative, mild distress. HEENT: Atraumatic, PERRLA, EOMI, Mucous membrane moist/pink Respiratory: Left sided ronchi, crackles. Cardiovascular: Irregular rate, Normal S1, Normal S2, No murmurs, no chest wall tenderness Abdominal: Normal bowel sounds, Soft, No tenderness, No hepatospenomegaly, No masses Extremities: 1+ pedal edema, No clubbing, No cyanosis, Normal pulses, No tenderness/swelling Skin: No rashes, No breakdown, No significant lesion Neuro: Normal gait, Normal speech, Strength at 5/5 X4 ext, Normal tone, Sensation intact, Cranial nerves 3-12 NL, Reflexes 2+ Psych/Mental Status: Mental status NL, Mood NL laboratory and microbiology Laboratory Tests 11/12/24 04:58 Test 11/12/24 04:58 Range/Units Serum Glucose 99 74-106 mg/dL Microbiology Date/Time Source Procedure Growth Status 11/10/24 18:02 Nose MRSA Screen - Final Complete 11/10/24 18:02 Urine - [place] Urine Culture - Preliminary Resulted 11/09/24 23:06 Blood Blood Culture - Preliminary Resulted Labs and/or images reviewed: Labs reviewed by me, Image(s) reviewed by me Problem List/Assessment/Plan Problem List/Assessment/Plan NEURO: Acute metabolic encephalopathy likely due to sepsis Is on 3 L oxygen with saturation 97% CARDIOVASCULAR: Septic Shock secondary to pneumonia Atrial fibrillation with RVR and secondary hypercoagulable state NSTEMI type 2 likely secondary to above - initial EKG revealed AFib with RVR - Troponin trends are 109>104>92 - cardiology on board - [id number]- VASc score 3 and HAS BLED score 2 - Metoprolol 12.5 mg p.o. b.i.d. and amiodarone 200 mg p.o. b.i.d. - Therapeutic Lovenox at 1 milligram/kg body weight 12 hrly PULMONARY: Possible aspiration pneumonia Possible gram positive/Gram-negative pneumonia - CT chest showed left lower lobe consolidation, suggestive of infectious process - chest x-ray on 0 5 showed left-sided consolidation, worse than the previous x-ray - Medneb with ipratropium and albuterol q.4 hours - IV meropenem 500 mg q.12 hours and IV vancomycin as per pharmacy - pulmonology on board - BiPAP p.r.n. GASTROINTESTINAL: Hyperbilirubinemia with transaminitis likely due to sepsis Coagulopathy likely due to sepsis Mildly elevated lipase GENITOURINARY: CORINA secondary to hemodynamically mediated/VMN - FENa 0.1% likely pre renal - IV normal saline 1 L bolus - nephrology on board - toxic medication - strict I&O METABOLIC: Obesity class 1, BMI 34.7 kg/m2 Moderate protein calorie malnutrition, albumin 2.8 INFECTIOUS DISEASE: Possible aspiration pneumonia Possible gram positive/Gram-negative pneumonia Sepsis with septic shock likely due to above Bacteremia likely due to sepsis Lactic acidosis likely due to sepsis - CT chest showed left lower lobe consolidation, suggestive of infectious process - Medneb with ipratropium and albuterol q.4 hours - IV cefepime 1 g q.12 hours and IV vancomycin as per pharmacy DIET: Cardiac diet DVT prophylax: Lovenox GI prophylaxis: Protonix Bowel regimen: Code status: Full code LINES/DRAINS/ACCESS: IV access: Peripheral line placed on 0 7/0 08/02 Drips: Levophed Mendiola catheter: placed on 0 7/0 08/02 DISPOSITION: [facility] Patient's status discussed with Family Critical care time spent more than 73 minutes, including patient care, chart review, and updating the family. Excluding any procedures Case discussed with Dr. Nicole Plan discussed with: Patient, Other My Orders My Orders Orders - SHARYN YI Procedure Category Date Status Time Chest Portable XY 11/12/24 Resulted 06:41 Blood Culture ANUPAMA 11/12/24 In Process 11:28 Meropenem 1gm Ivpb PHA 11/12/24 In Process (Merrem 1gm/ Ns) 18:00 Date of Service: Nov 12, 2024 Billing Provider: TOMAS NICOLE MD Common Visit Codes: [id number] INP/OBS CARE(HIGH) SHARYN YI Nov 12, 2024 20:30 TOMAS NICOLE MD Nov 13, 2024 21:14
[2024-11-12] MEDS: AMIODARONE BOLUS KIT 100 ML IV ONE (20:48)
[2024-11-12] MEDS: AMIODARONE 360mg/200mL PREMIX 200 ML IV ONE (21:04)
[2024-11-12] MEDS ORDERED: MEROPENEM 500MG IVPB 50 ML IV SCH (22:00)
--- NOTE | 2024-11-12 22:21 | DVHPN2 ---
Progress Note - Dictate Date Seen: Nov 12, 2024 Medical Necessity Reason Pt with a Central, PICC or Fol: Yes The following are medically ne: Crowell Catheter Reason for crowell catheter: Strict I&O Subjective Patient seen and examined at bedside. Remains on supplemental oxygen Overnight events reviewed. vital signs Vital Sign Date Time Temp Pulse Resp B/P (MAP) Pulse Ox O2 Delivery O2 Flow Rate FiO2 11/12/24 21:59 120 124/64 11/12/24 21:15 25 91 11/12/24 20:00 Nasal Cannula* 4 36 11/12/24 20:00 99.0 99.0 Total Intake and Output 11/11/24 11/11/24 11/12/24 14:59 22:59 06:59 Intake Total 1046.25 ml 1866.25 ml 1370 ml Output Total 270 ml 450 ml Balance 1046.25 ml 1596.25 ml 920 ml medications Current Medications Medications Dose Ordered Sig/Dennis Route Start Time Stop Time Status Last Admin Dose Admin Ondansetron HCl 4 mg Q4HP PRN IV 11/10/24 09:45 Vancomycin HCl 0 ml @ 0 mls/hr UD IV 11/10/24 10:15 Multivitamins/ Minerals 1 tab DAILY PO 11/10/24 10:15 11/12/24 09:47 1 TAB Thiamine HCl 100 mg DAILY PO 11/10/24 10:15 11/12/24 09:46 100 MG Folic Acid 1 mg DAILY PO 11/10/24 10:15 11/12/24 09:46 1 MG Enoxaparin Sodium 100 mg Q12HR SC 11/10/24 22:00 11/12/24 21:58 100 MG Albuterol 2.5 mg Q4HWA [facility] 11/11/24 06:00 11/12/24 14:30 2.5 MG Ipratropium [place] 0.5 mg Q4HWA [facility] 11/11/24 06:00 11/12/24 19:40 0.5 MG Norepinephrine Bitartrate 250 ml @ 3.75 mls/hr Q24H IV 11/11/24 01:30 11/11/24 01:35 3.75 MLS/HR Pantoprazole Sodium 40 mg DAILY@0600 PO 11/12/24 06:00 11/12/24 06:53 40 MG Sodium Chloride 1,000 ml @ 75 mls/hr [id number] IV 11/11/24 16:45 11/12/24 10:26 75 MLS/HR Metoprolol Tartrate 12.5 mg BID PO 11/12/24 10:00 11/12/24 21:59 12.5 MG Meropenem 50 ml @ 17 mls/hr Q12HR IV 11/12/24 22:00 UNV Meropenem 50 ml @ 17 mls/hr Q12H IV 11/12/24 18:00 11/12/24 18:13 17 MLS/HR objective Gen.: Patient lying in bed in no apparent distress. On supplemental oxygen. Head: Normocephalic, atraumatic. Eyes: EOMI/PERRLA. Ears: Normal hearing. Normal anatomy. Neck/trachea: Trachea midline, supple. Nose: Normal external anatomy. Mouth: Moist mucous membranes. Chest: Decreased air entry bilaterally. No wheezing or rhonchi. Cardiovascular: Positive S1, positive S2. Regular rate and rhythm. Abdomen: Positive bowel sounds in all 4 quadrants. Soft, non-tender, non- distended. : Deferred. Rectal: Deferred. Skin: Warm, dry. Intact. Extremities: 2+ radial pulses bilaterally. No lower extremity edema. Neuro: Awake, alert, oriented x3. No gross motor or sensory deficits. Cranial nerves II through XII intact. Gait not assessed. laboratory and microbiology Laboratory Tests 11/12/24 04:58 Test 11/12/24 04:58 Range/Units Serum Glucose 99 74-106 mg/dL Assessment/Plan Impression: Acute hypoxic respiratory failure Dependence on supplemental oxygen Sepsis Pneumonia Lactic acidosis Chronic atrial fibrillation Acute kidney injury Plan: Supplemental oxygen, on 4 LPM NC Titrate to keep O2 sats above 92%. Taper O2 as tolerated. Increased O2 requirements. Consider BiPAP Currently off Levophed, hemodynamically stable. Continue antibiotics for pneumonia On IV fluids Monitor lactic acid level Chronic AFib - Amiodarone PO BID. Cardiology recs appreciated. Monitor renal function d/t CORINA. Follow up Nephrology recs Monitor electrolytes. Supplement as necessary. Monitor ins and outs. DVT prophylaxis. Prognosis: Poor given patient's multiple co-morbidities. Condition: Critical Rest of plan per hospitalist and other consultants. A total of 35 minutes of critical care time was spent reviewing the patient record, examining the patient, making a diagnostic and therapeutic plan, discussing this plan with the medical personnel, following up on diagnostic studies and following the patient for clinical stability excluding any and all procedures. At least 50% of this time was spent in direct, [id number] contact. Thank you Dr. Gonsales for allowing me to participate in this patient's care. Further recommendations will depend on the patient's clinical course. Please do not hesitate to contact me if you have any questions or concerns. This medical document was created using an electronic medical record system with [employer] dictation system. Although these documentations are being carefully reviewed, there may still be some phonetic and typographical changes. The errors are purely typographical, due to imperfection on the software program, and do not reflect any compromise in the patient's medical care. Plan discussed with: Other (NICOLAS Cesar) Critical Care Time(min): 35 MIGUEL DORAN MD Nov 12, 2024 22:21
[2024-11-13] VITALS (92 sets, daily range): BP systolic 90–131; BP diastolic 52–75; PULSE 83–132; RESP 18–35; TEMP 97.8–99.2; O2SAT 92–99
[2024-11-13] MEDS: AMIODARONE 360mg/200mL PREMIX 200 ML IV SCH (03:01)
--- NOTE | 2024-11-13 05:52 | DVH ---
CHEST RADIOGRAPH Indication: pneumonia Technique: Single frontal view of the chest was obtained Comparison: XY CHEST PORTABLE on DOS: 11/12/24, XY CHEST PORTABLE on DOS: 11/09/24, XY CHEST PORTABLE on DOS: 11/12/24 FINDINGS: Lines and Tubes: None Lungs: Opacification left mid and lower lung field. Probable small left pleural effusion. Mildly incr eased consolidation to the infiltrate in the left lung when compared to the prior study. No pneumothorax. Cardiomediastinal contours: Unremarkable Bones: Unremarkable IMPRESSION: Mildly increasing left lung consolidation consistent with pneumonia
[2024-11-13 07:30] LABS: Hematocrit 40.3 % (41.0-53.0); Hemoglobin 13.3 g/dL (13.5-17.5); Mean Corpuscular Hemoglobin 29.8 pg (28.0-32.0); Mean Corpuscular Volume 90.5 fL (80.0-100.0)
[2024-11-13 07:38] LABS: Anion Gap 13 (5-15); BUN/Creatinine Ratio 38.7 (10.0-20.0); Potassium 5.0 mmol/L (3.5-5.1); Sodium 141 mmol/L (136-145)
[2024-11-13 07:44] LABS: Alanine Aminotransferase 68 U/L (7-40); Albumin 2.3 g/dL (3.2-4.8); Alkaline Phosphatase 163 U/L (46-116); Bilirubin, Direct 1.2 mg/dL (<0.3); Bilirubin, Total 1.5 mg/dL (0.2-1.0); Calcium 6.9 mg/dL (8.7-10.4); Carbon Dioxide 15 mmol/L (20-31); Chloride 113 mmol/L (98-107); Glucose 66 mg/dL (74-106); Total Protein 5.1 g/dL (5.7-8.2)
[2024-11-13 07:45] LABS: Blood Urea Nitrogen 82 mg/dL (9-23)
[2024-11-13 08:15] LABS: Total Cells Counted 100.0 (100)
--- NOTE | 2024-11-13 09:42 | DVHSR ---
APPROVED REPORT EXAM: Two-dimensional and M-mode echocardiogram with Doppler and color Doppler. Blood Pressure: 90/58 mmHg INDICATION Evaluate cardiac function RISK FACTORS Obesity: Height: 5'8", Weight: 227 DIMENSIONS LVDd4.9 (3.8-5.7cm)LA (2D)3.8 (1.9-4.0cm)Aortic Root3.6 (2.0-3.7cm) LVDs3.5 (2.5-4.0cm)LA (MM) (1.9-4.0cm)Aortic Cusp Exc1.8 (1.5-2.0cm) EF (%) 55.0 (55-70%)Rt. Atrium4.9 (1.9-4.0cm)Asc. Aorta cm IVSd0.9 (0.7-1.1cm)RV (D) (1.8-2.4cm) PWd1.1 (0.7-1.1cm) Mitral Valve MitralMitral Stenosis E wave1.12m/sMV Mean GR.mmHg E/A ratio0.02D MVAcm2 Aortic Valve Aortic ValveAortic Stenosis V11.23m/Camille Mean GR.6mmHg V21.62m/Camille Peak GR.10mmHg LVOT Diameter2.0 (1.8-2.4cm)Doppler AVA2.38cm2 Pulmonic Valve V21.27m/s Other Information Quality : Rhythm : Atrial Fibrillation Technically limited study due to body habitus and rhythm. Conclusion lvef 60% RV moderately enlarged tachycardia during study no severe valve abnormalities noted
--- NOTE | 2024-11-13 10:44 | DVHPN2 ---
Progress Note - Dictate Date Seen: Nov 13, 2024 Medical Necessity Reason Pt with a Central, PICC or Fol: Yes The following are medically ne: Crowell Catheter Reason for crowell catheter: Strict I&O Subjective Resting comfortably, urine volumes nonoliguric vital signs Vital Sign Date Time Temp Pulse Resp B/P (MAP) Pulse Ox O2 Delivery O2 Flow Rate FiO2 11/13/24 10:00 123 25 95/53 (67) 94 11/13/24 10:00 Nasal Cannula* 4 36 11/13/24 08:00 99.2 99.2 Total Intake and Output 11/12/24 11/12/24 11/13/24 15:00 23:00 07:00 Intake Total 1117.5 ml 1279.16 ml 1254.96 ml Output Total 700 ml 750 ml Balance 1117.5 ml 579.16 ml 504.96 ml medications Current Medications Medications Dose Ordered Sig/Dennis Route Start Time Stop Time Status Last Admin Dose Admin Ondansetron HCl 4 mg Q4HP PRN IV 11/10/24 09:45 Vancomycin HCl 0 ml @ 0 mls/hr UD IV 11/10/24 10:15 Multivitamins/ Minerals 1 tab DAILY PO 11/10/24 10:15 11/13/24 09:48 1 TAB Thiamine HCl 100 mg DAILY PO 11/10/24 10:15 11/13/24 09:48 100 MG Folic Acid 1 mg DAILY PO 11/10/24 10:15 11/13/24 09:48 1 MG Enoxaparin Sodium 100 mg Q12HR SC 11/10/24 22:00 11/13/24 09:48 100 MG Albuterol 2.5 mg Q4HWA [facility] 11/11/24 06:00 11/13/24 09:26 2.5 MG Ipratropium [place] 0.5 mg Q4HWA [facility] 11/11/24 06:00 11/13/24 09:26 0.5 MG Norepinephrine Bitartrate 250 ml @ 3.75 mls/hr Q24H IV 11/11/24 01:30 11/11/24 01:35 3.75 MLS/HR Pantoprazole Sodium 40 mg DAILY@0600 PO 11/12/24 06:00 11/13/24 05:20 40 MG Sodium Chloride 1,000 ml @ 75 mls/hr [id number] IV 11/11/24 16:45 11/12/24 10:26 75 MLS/HR Metoprolol Tartrate 12.5 mg BID PO 11/12/24 10:00 11/13/24 09:48 12.5 MG Meropenem 50 ml @ 17 mls/hr Q12HR IV 11/12/24 22:00 UNV Meropenem 50 ml @ 17 mls/hr Q12H IV 11/12/24 18:00 11/13/24 05:20 17 MLS/HR objective Gen: nad heent: nc/at, mmm lungs: cta anteriorly cvs: no rub abd: soft, bowel sounds audible ext: no edema skin: no rash neuro: alert and oriented laboratory and microbiology Laboratory Tests 11/13/24 04:42 Test 11/13/24 04:42 Range/Units Serum Glucose 66 L 74-106 mg/dL Assessment/Plan Problem List/Assessment/Plan Acute kidney injury likely vasomotor in the setting of sepsis Oliguria secondary to above Hyperkalemia Hypotension requiring pressor support ALOC likely secondary to sepsis Sepsis due to pneumonia, Gram-positive and negative Atrial fibrillation with RVR Lactic acidosis Hypothyroidism Transaminitis likely alcoholic hepatitis Chronic alcoholic dependence Obesity Plan: - mild hyperchloremic metabolic acidosis - we will change IV fluids to half NS - CORINA improving Plan discussed with: Patient CLAUS FERNANDEZ MD Nov 13, 2024 10:44
[2024-11-13] MEDS: SOD CHL 0.45% 1,000 ML IV SCH (10:49)
--- NOTE | 2024-11-13 12:41 | DVHPN2 ---
Progress Note Date Seen: Nov 13, 2024 Medical Necessity Reason Pt with a Central, PICC or Fol: Yes The following are medically ne: Crowell Catheter Reason for crowell catheter: Strict I&O Subjective Patient reports: Feels better Other Systems: started on amio gtt for afib called overnight for af rvr Objective vital signs Vital Sign Date Time Temp Pulse Resp B/P (MAP) Pulse Ox O2 Delivery O2 Flow Rate FiO2 11/13/24 11:45 100 30 101/75 (84) 93 11/13/24 10:00 Nasal Cannula* 4 36 11/13/24 08:00 99.2 99.2 Total Intake and Output 11/12/24 11/12/24 11/13/24 14:59 22:59 06:59 Intake Total 1117.5 ml 1245.83 ml 1221.63 ml Output Total 700 ml 750 ml Balance 1117.5 ml 545.83 ml 471.63 ml medications Current Medications Medications Dose Ordered Sig/Dennis Route Start Time Stop Time Status Last Admin Dose Admin Ondansetron HCl 4 mg Q4HP PRN IV 11/10/24 09:45 Vancomycin HCl 0 ml @ 0 mls/hr UD IV 11/10/24 10:15 Multivitamins/ Minerals 1 tab DAILY PO 11/10/24 10:15 11/13/24 09:48 1 TAB Thiamine HCl 100 mg DAILY PO 11/10/24 10:15 11/13/24 09:48 100 MG Folic Acid 1 mg DAILY PO 11/10/24 10:15 11/13/24 09:48 1 MG Enoxaparin Sodium 100 mg Q12HR SC 11/10/24 22:00 11/13/24 09:48 100 MG Albuterol 2.5 mg Q4HWA [facility] 11/11/24 06:00 11/13/24 09:26 2.5 MG Ipratropium [place] 0.5 mg Q4HWA [facility] 11/11/24 06:00 11/13/24 09:26 0.5 MG Norepinephrine Bitartrate 250 ml @ 3.75 mls/hr Q24H IV 11/11/24 01:30 11/11/24 01:35 3.75 MLS/HR Pantoprazole Sodium 40 mg DAILY@0600 PO 11/12/24 06:00 11/13/24 05:20 40 MG Metoprolol Tartrate 12.5 mg BID PO 11/12/24 10:00 11/13/24 09:48 12.5 MG Meropenem 50 ml @ 17 mls/hr Q12HR IV 11/12/24 22:00 UNV Meropenem 50 ml @ 17 mls/hr Q12H IV 11/12/24 18:00 11/13/24 05:20 17 MLS/HR Sodium Chloride 1,000 ml @ 75 mls/hr [id number] IV 11/13/24 10:45 11/13/24 10:49 75 MLS/HR Examination: GENERAL:Abnormal, HEENT:Abnormal, LUNGS:Abnormal, CVS:Abnormal, ABDOMEN:Abnormal laboratory and microbiology Laboratory Tests 11/13/24 04:42 Test 11/13/24 04:42 Range/Units Serum Glucose 66 L 74-106 mg/dL Microbiology Date/Time Source Procedure Growth Status 11/10/24 18:02 Nose MRSA Screen - Final Complete 11/10/24 18:02 Urine - Crowell [place] Urine Culture - Final Complete 11/09/24 23:06 Blood Blood Culture - Preliminary Resulted Problem List/Assessment/Plan Problem List/Assessment/Plan severe sepsis jaundice etoh abuse liver failure afib rvr AMS start low dose BB when feasible if LFTs allow, can add po amiodarone afib will imporve once sepsis improves anticoag /lovenox please call for ?s will sign off cont amio gtt for 24 more hours dc and transition to po tomorrow sepsis and multiorgan failure slowly improving Plan discussed with: Patient, Other (n) My Orders My Orders Orders - BRY MATTA MD Procedure Category Date Status Time Amiodarone PHA 11/13/24 In Process 360mg/200ml Premix 02:45 Date of Service: Nov 13, 2024 Billing Provider: BRY MATTA MD Common Visit Codes: NOT BILLABLE BRY MATTA MD Nov 13, 2024 12:41
--- NOTE | 2024-11-13 15:23 | DVHPNRES ---
Progress Note Date Seen: Nov 13, 2024 Resident Creating Document: CRISTINO ZAMORA RESIDENT Medical Necessity Reason Pt with a Central, PICC or Fol: Yes The following are medically ne: Rcowell Catheter Reason for crowell catheter: Strict I&O Subjective Review of Systems Patient seen and examined in [facility]. He is alert and oriented x3. Family is on the bed side. Nasal cannula 4 L O2 supplementation, BiPAP as needed, patient had AFib with RVR last night and fortune teller ordered amiodarone drip, after that patient can be switched to amiodarone 200 mg p.o. daily. Pulmonology is on board, chest x-ray shows increased left-sided consolidation. Objective vital signs Vital Sign Date Time Temp Pulse Resp B/P (MAP) Pulse Ox O2 Delivery O2 Flow Rate FiO2 11/13/24 14:31 104 23 97 11/13/24 14:25 Nasal Cannula 3.0 11/13/24 14:25 32 11/13/24 14:00 108/64 (79) 11/13/24 12:00 97.8 97.8 Total Intake and Output 11/12/24 11/12/24 11/13/24 15:00 23:00 07:00 Intake Total 1117.5 ml 1279.16 ml 1254.96 ml Output Total 700 ml 750 ml Balance 1117.5 ml 579.16 ml 504.96 ml medications Current Medications Medications Dose Ordered Sig/Dennis Route Start Time Stop Time Status Last Admin Dose Admin Ondansetron HCl 4 mg Q4HP PRN IV 11/10/24 09:45 Vancomycin HCl 0 ml @ 0 mls/hr UD IV 11/10/24 10:15 Multivitamins/ Minerals 1 tab DAILY PO 11/10/24 10:15 11/13/24 09:48 1 TAB Thiamine HCl 100 mg DAILY PO 11/10/24 10:15 11/13/24 09:48 100 MG Folic Acid 1 mg DAILY PO 11/10/24 10:15 11/13/24 09:48 1 MG Enoxaparin Sodium 100 mg Q12HR SC 11/10/24 22:00 11/13/24 09:48 100 MG Albuterol 2.5 mg Q4HWA [facility] 11/11/24 06:00 11/13/24 14:25 2.5 MG Ipratropium [place] 0.5 mg Q4HWA [facility] 11/11/24 06:00 11/13/24 14:25 0.5 MG Norepinephrine Bitartrate 250 ml @ 3.75 mls/hr Q24H IV 11/11/24 01:30 11/11/24 01:35 3.75 MLS/HR Pantoprazole Sodium 40 mg DAILY@0600 PO 11/12/24 06:00 11/13/24 05:20 40 MG Metoprolol Tartrate 12.5 mg BID PO 11/12/24 10:00 11/13/24 09:48 12.5 MG Meropenem 50 ml @ 17 mls/hr Q12HR IV 11/12/24 22:00 UNV Meropenem 50 ml @ 17 mls/hr Q12H IV 11/12/24 18:00 11/13/24 05:20 17 MLS/HR Sodium Chloride 1,000 ml @ 75 mls/hr [id number] IV 11/13/24 10:45 11/13/24 10:49 75 MLS/HR Vancomycin HCl 100 ml @ 200 mls/hr Q24H IV 11/13/24 17:00 Examination General Appearance: Alert, Oriented X3, Cooperative, mild distress. HEENT: Atraumatic, PERRLA, EOMI, Mucous membrane moist/pink Respiratory: Left sided ronchi, crackles. Cardiovascular: Irregular rate, Normal S1, Normal S2, No murmurs, no chest wall tenderness Abdominal: Normal bowel sounds, Soft, No tenderness, No hepatospenomegaly, No masses Extremities: 1+ pedal edema, No clubbing, No cyanosis, Normal pulses, No tenderness/swelling Skin: No rashes, No breakdown, No significant lesion Neuro: Normal gait, Normal speech, Strength at 5/5 X4 ext, Normal tone, Sensation intact, Cranial nerves 3-12 NL, Reflexes 2+ Psych/Mental Status: Mental status NL, Mood NL. NEURO: Acute metabolic encephalopathy likely due to sepsis Is on 3 L oxygen with saturation 97% laboratory and microbiology Laboratory Tests 11/13/24 04:42 Test 11/13/24 04:42 Range/Units Serum Glucose 66 L 74-106 mg/dL Microbiology Date/Time Source Procedure Growth Status 11/12/24 12:50 Blood Blood Culture - Preliminary NO GROWTH AFTER 24 HOURS OF INCUBATION. Resulted 11/10/24 18:02 Nose MRSA Screen - Final Complete 11/10/24 18:02 Urine - Crowell [place] Urine Culture - Final Complete Problem List/Assessment/Plan Problem List/Assessment/Plan CARDIOVASCULAR: Septic Shock secondary to pneumonia Atrial fibrillation with RVR and secondary hypercoagulable state NSTEMI type 2 likely secondary to above - initial EKG revealed AFib with RVR - Troponin trends are 109>104>92 - cardiology on board - [id number]- VASc score 3 and HAS BLED score 2 - patient was on amiodarone drip from last night - Metoprolol 12.5 mg p.o. b.i.d. and amiodarone 200 mg p.o. b.i.d. - Therapeutic Lovenox at 1 milligram/kg body weight 12 hrly PULMONARY: Possible aspiration pneumonia Possible gram positive/Gram-negative pneumonia - CT chest showed left lower lobe consolidation, suggestive of infectious process - chest x-ray on 5 showed left-sided consolidation, worse than the previous x-ray - Medneb with ipratropium and albuterol q.4 hours - IV meropenem 500 mg q.12 hours and IV vancomycin as per pharmacy - pulmonology on board - BiPAP p.r.n. GASTROINTESTINAL: Hyperbilirubinemia with transaminitis likely due to sepsis Coagulopathy likely due to sepsis Mildly elevated lipase GENITOURINARY: CORINA secondary to hemodynamically mediated/VMN - FENa 0.1% likely pre renal - IV normal saline 1 L bolus - nephrology on board - toxic medication - strict I&O METABOLIC: Obesity class 1, BMI 34.7 kg/m2 Moderate protein calorie malnutrition, albumin 2.8 INFECTIOUS DISEASE: Possible aspiration pneumonia Possible gram positive/Gram-negative pneumonia Sepsis with septic shock likely due to above Bacteremia likely due to sepsis Lactic acidosis likely due to sepsis - CT chest showed left lower lobe consolidation, suggestive of infectious process - Medneb with ipratropium and albuterol q.4 hours - IV cefepime 1 g q.12 hours and IV vancomycin as per pharmacy DIET: Cardiac diet DVT prophylax: Lovenox GI prophylaxis: Protonix Bowel regimen: Code status: Full code LINES/DRAINS/ACCESS: IV access: Peripheral line placed on 0 0 08/02 Drips: Off Levophed from today Crowell catheter: placed on 0 08/02 Patient's status discussed with Family Critical care time spent more than 68 minutes, including patient care, chart review, and updating the family. Excluding any procedur: Full code Plan discussed with: Patient, Other (Family) Date of Service: Nov 13, 2024 Billing Provider: TOMAS NICOLE MD Common Visit Codes: [id number] INP/OBS CARE(HIGH) CRISTINO ZAMORA RESIDENT Nov 13, 2024 15:23 TOMAS NICOLE MD Nov 13, 2024 21:17
[2024-11-13] MEDS: VANCOMYCIN 500mg/100mL 100 ML IV SCH (16:47)
[2024-11-13] MEDS: MEROPENEM 1GM IVPB 50 ML IV SCH (17:58)
[2024-11-13] MEDS: APIXABAN 5 MG TAB PO SCH (22:14)
--- NOTE | 2024-11-13 23:55 | DVHPN2 ---
Progress Note - Dictate Date Seen: Nov 13, 2024 Medical Necessity Reason Pt with a Central, PICC or Fol: Yes The following are medically ne: Crowell Catheter Reason for crowell catheter: Strict I&O Subjective Patient seen and examined at bedside. Remains on supplemental oxygen Overnight events reviewed. vital signs Vital Sign Date Time Temp Pulse Resp B/P (MAP) Pulse Ox O2 Delivery O2 Flow Rate FiO2 11/13/24 22:17 98 18 99 11/13/24 22:14 124/58 11/13/24 22:09 Nasal Cannula 3.0 11/13/24 22:09 32 11/13/24 20:00 98.3 98.3 Total Intake and Output 11/12/24 11/12/24 11/13/24 15:00 23:00 07:00 Intake Total 1117.5 ml 1279.16 ml 1254.96 ml Output Total 700 ml 750 ml Balance 1117.5 ml 579.16 ml 504.96 ml medications Current Medications Medications Dose Ordered Sig/Dennis Route Start Time Stop Time Status Last Admin Dose Admin Ondansetron HCl 4 mg Q4HP PRN IV 11/10/24 09:45 Vancomycin HCl 0 ml @ 0 mls/hr UD IV 11/10/24 10:15 Multivitamins/ Minerals 1 tab DAILY PO 11/10/24 10:15 11/13/24 09:48 1 TAB Thiamine HCl 100 mg DAILY PO 11/10/24 10:15 11/13/24 09:48 100 MG Folic Acid 1 mg DAILY PO 11/10/24 10:15 11/13/24 09:48 1 MG Albuterol 2.5 mg Q4HWA [facility] 11/11/24 06:00 11/13/24 22:09 2.5 MG Ipratropium [place] 0.5 mg Q4HWA [facility] 11/11/24 06:00 11/13/24 22:09 0.5 MG Norepinephrine Bitartrate 250 ml @ 3.75 mls/hr Q24H IV 11/11/24 01:30 11/11/24 01:35 3.75 MLS/HR Pantoprazole Sodium 40 mg DAILY@0600 PO 11/12/24 06:00 11/13/24 05:20 40 MG Metoprolol Tartrate 12.5 mg BID PO 11/12/24 10:00 11/13/24 22:14 12.5 MG Meropenem 50 ml @ 17 mls/hr Q12HR IV 11/12/24 22:00 UNV Sodium Chloride 1,000 ml @ 75 mls/hr [id number] IV 11/13/24 10:45 11/13/24 10:49 75 MLS/HR Vancomycin HCl 100 ml @ 200 mls/hr Q24H IV 11/13/24 17:00 11/13/24 16:47 200 MLS/HR Meropenem 50 ml @ 17 mls/hr Q12H IV 11/13/24 18:00 11/13/24 17:58 17 MLS/HR Apixaban 5 mg BID PO 11/13/24 22:00 11/13/24 22:14 5 MG objective Gen.: Patient lying in bed in no apparent distress. On supplemental oxygen. Head: Normocephalic, atraumatic. Eyes: EOMI/PERRLA. Ears: Normal hearing. Normal anatomy. Neck/trachea: Trachea midline, supple. Nose: Normal external anatomy. Mouth: Moist mucous membranes. Chest: Decreased air entry bilaterally. No wheezing or rhonchi. Cardiovascular: Positive S1, positive S2. Regular rate and rhythm. Abdomen: Positive bowel sounds in all 4 quadrants. Soft, non-tender, non- distended. : Deferred. Rectal: Deferred. Skin: Warm, dry. Intact. Extremities: 2+ radial pulses bilaterally. No lower extremity edema. Neuro: Awake, alert, oriented x3. No gross motor or sensory deficits. Cranial nerves II through XII intact. Gait not assessed. laboratory and microbiology Laboratory Tests 11/13/24 04:42 Test 11/13/24 04:42 Range/Units Serum Glucose 66 L 74-106 mg/dL Assessment/Plan Impression: Acute hypoxic respiratory failure Dependence on supplemental oxygen Sepsis Pneumonia Lactic acidosis Chronic atrial fibrillation Acute kidney injury Events: Remains on supplemental oxygen, 3.5 LPM NC Taper O2 as tolerated Improving O2 requirements BiPAP PRN. CXR reviewed, demonstrates mildly increasing left lung consolidation consistent with pneumonia. Head of bed elevation Aspiration precautions On amiodarone drip Continue antibiotics Protonix for GI prophylaxis Lovenox for DVT prophylaxis Labs and imaging reviewed. Rest of plan as noted below. Plan: Supplemental oxygen Titrate to keep O2 sats above 92%. BiPAP PRN. Remains off pressors, hemodynamically stable. Continue antibiotics for pneumonia On IV fluids Monitor lactic acid level Chronic AFib - Amiodarone PO BID. Cardiology recs appreciated. Monitor renal function d/t CORINA. Follow up Nephrology recs Monitor electrolytes. Supplement as necessary. Monitor ins and outs. GI/DVT prophylaxis. Prognosis: Poor given patient's multiple co-morbidities. Condition: Critical Rest of plan per hospitalist and other consultants. A total of 35 minutes of critical care time was spent reviewing the patient record, examining the patient, making a diagnostic and therapeutic plan, discussing this plan with the medical personnel, following up on diagnostic studies and following the patient for clinical stability excluding any and all procedures. At least 50% of this time was spent in direct, [id number] contact. Thank you Dr. Gonsales for allowing me to participate in this patient's care. Further recommendations will depend on the patient's clinical course. Please do not hesitate to contact me if you have any questions or concerns. This medical document was created using an electronic medical record system with [employer] dictation system. Although these documentations are being carefully reviewed, there may still be some phonetic and typographical changes. The errors are purely typographical, due to imperfection on the software program, and do not reflect any compromise in the patient's medical care. Dietary Evaluation Review Recommendations by RD: Protein Supplementation Comments: 1) Consider changing from mechanical soft cardiac to mechanical soft hepatic 80g Pro diet 2) Initiate NutriHep qd 3) Encourage optimal PO intake 4) Refer to outpatient RD for weight management 5) Follow-up with cardiology, hepatology, and nephrology 6) Follow-up with social work coordinator r/t ETOH cesastion 7) Continue to monitor I&O, labs, and skin integrity Expected Outcomes/Goals: 1) appetite and labs to improve 2) f/u in 3-5 days Plan discussed with: Other (NICOLAS Mccarty) Critical Care Time(min): 35 MIGUEL DORAN MD Nov 13, 2024 23:55
[2024-11-14] VITALS (35 sets, daily range): BP systolic 105–130; BP diastolic 52–77; PULSE 76–115; RESP 17–30; TEMP 97.7–98.8; O2SAT 93–99
--- NOTE | 2024-11-14 04:57 | DVH ---
CHEST RADIOGRAPH Indication: PNEUMONIA Technique: Single frontal view of the chest was obtained COMPARISON: XY CHEST PORTABLE on DOS: 11/13/24, XY CHEST PORTABLE on DOS: 11/12/24, XY CHEST PORTABLE on DOS: 11/09/24 FINDINGS: Lines and Tubes: None Lungs: Multifocal airspace disease, [id number] Pleura: No effusion. No pneumothorax. Cardiomediastinal contours: Unremarkable Bones: Unremarkable IMPRESSION: No significant interval change
[2024-11-14 08:32] LABS: Hematocrit 36.5 % (41.0-53.0); Hemoglobin 12.2 g/dL (13.5-17.5); Mean Corpuscular Hemoglobin 29.2 pg (28.0-32.0); Mean Corpuscular Volume 87.4 fL (80.0-100.0)
[2024-11-14 08:40] LABS: Potassium 4.0 mmol/L (3.5-5.1); Sodium 139 mmol/L (136-145)
[2024-11-14 08:41] LABS: Anion Gap 10 (5-15)
[2024-11-14 08:44] LABS: Calcium 6.8 mg/dL (8.7-10.4); Carbon Dioxide 19 mmol/L (20-31); Chloride 110 mmol/L (98-107)
[2024-11-14 08:46] LABS: BUN/Creatinine Ratio 42.8 (10.0-20.0); Glucose 97 mg/dL (74-106)
[2024-11-14 08:57] LABS: Blood Urea Nitrogen 89 mg/dL (9-23)
[2024-11-14] MEDS: AMIODARONE HCL 200 MG TAB PO SCH (09:44)
[2024-11-14 10:11] LABS: Total Cells Counted 100.0 (100)
[2024-11-14] MEDS: SODIUM BICARBONATE 650 MG TAB PO ONE (12:35)
[2024-11-14] MEDS: FUROSEMIDE 40 MG/4 ML VIAL IV ONE (12:35)
--- NOTE | 2024-11-14 15:05 | DVHPN2 ---
Progress Note Date Seen: Nov 14, 2024 Resident Creating Document: LOKI MASON RESIDENT Medical Necessity Reason Pt with a Central, PICC or Fol: Yes The following are medically ne: Crowell Catheter Reason for crowell catheter: Strict I&O Subjective Review of Systems This is a 79-year-old male with atrial fibrillation, hypertension, chronic alcohol dependence who presented to the ER for the evaluation of altered level of consciousness and shortness of breaths associated with cough. Per chart review, patient was confused. On my evaluation, patient is A&O x2, oriented to name and place. No family at bedside. On arrival, EKG showed AFib with RVR. Troponins 109 and downtrending. Nephrology consulted for CORINA Overnight patient has febrile T-max 100.8 F, hypotensive requiring Levophed at 4 mcg/hour. He is also requiring 2 L oxygen supplementation. 11/11-Patient seen and examined in [facility]. On Levophed, nasal cannula supplementation, has left sided crackles. Patient is oliguric, 270 cc of urine overnight. 11/14-patient seen and examined. Urine output increasing, 1700 cc per day. Started Lasix 40 IV daily, bicarb q.i.d.. Hold of IV fluids. Objective vital signs Vital Sign Date Time Temp Pulse Resp B/P (MAP) Pulse Ox O2 Delivery O2 Flow Rate FiO2 11/14/24 13:38 86 18 97 11/14/24 13:32 Nasal Cannula* 2 28 11/14/24 12:35 110/66 11/14/24 12:00 98.8 98.8 Total Intake and Output 11/13/24 11/13/24 11/14/24 15:00 23:00 07:00 Intake Total 733.28 ml 1633.28 ml 1350.28 ml Output Total 800 ml 900 ml Balance 733.28 ml 833.28 ml 450.28 ml medications Current Medications Medications Dose Ordered Sig/Dennis Route Start Time Stop Time Status Last Admin Dose Admin Ondansetron HCl 4 mg Q4HP PRN IV 11/10/24 09:45 Vancomycin HCl 0 ml @ 0 mls/hr UD IV 11/10/24 10:15 Multivitamins/ Minerals 1 tab DAILY PO 11/10/24 10:15 11/14/24 09:28 Thiamine HCl 100 mg DAILY PO 11/10/24 10:15 11/14/24 09:29 Folic Acid 1 mg DAILY PO 11/10/24 10:15 11/14/24 09:29 Albuterol 2.5 mg Q4HWA [facility] 11/11/24 06:00 11/14/24 13:32 Ipratropium [place] 0.5 mg Q4HWA [facility] 11/11/24 06:00 11/14/24 13:32 Norepinephrine Bitartrate 250 ml @ 3.75 mls/hr Q24H IV 11/11/24 01:30 11/11/24 01:35 Pantoprazole Sodium 40 mg DAILY@0600 PO 11/12/24 06:00 11/14/24 06:34 Metoprolol Tartrate 12.5 mg BID PO 11/12/24 10:00 11/14/24 09:29 Meropenem 50 ml @ 17 mls/hr Q12HR IV 11/12/24 22:00 UNV Vancomycin HCl 100 ml @ 200 mls/hr Q24H IV 11/13/24 17:00 11/13/24 16:47 Meropenem 50 ml @ 17 mls/hr Q12H IV 11/13/24 18:00 11/14/24 06:34 Apixaban 5 mg BID PO 11/13/24 22:00 11/14/24 09:29 Amiodarone HCl 200 mg Q12HR PO 11/14/24 10:00 11/14/24 09:44 Furosemide 40 mg DAILY IV 11/15/24 10:00 Sodium Bicarbonate 650 mg QID PO 11/14/24 18:00 Examination Patient lying in bed, in no acute distress General: Obese, palor, mucosae are moist Cardiovascular: Tachycardic and irregular S1 and S2. No murmurs, gallops or rubs. No JVD elevation. 1+ bilateral pitting edema Respiratory: Left-sided crackles heard on auscultation, saturating 94 on 2 L Abdomen: Soft, nontender, nondistended, normoactive bowel sounds, no rebound tenderness, no organomegaly, no masses Genitourinary: Crowell catheter draining dark urine 20 cc. MSK/skin: Mobilizes 4 limbs. Skin is dry and warm Neurological: No motor, no sensitive deficits, normal speech. Pupils are isocoric and reactive. Psych/Mental Status: A/Ox3 laboratory and microbiology Laboratory Tests 11/14/24 08:24 Test 11/14/24 08:24 Range/Units Serum Glucose 97 74-106 mg/dL Microbiology Date/Time Source Procedure Growth Status 11/12/24 12:50 Blood Blood Culture - Preliminary NO GROWTH AFTER 48 HOURS OF INCUBATION. Resulted 11/10/24 18:02 Nose MRSA Screen - Final Complete 11/10/24 18:02 Urine - [place]ell [place] Urine Culture - Final Complete Labs and/or images reviewed: Labs reviewed by me, Image(s) reviewed by me Problem List/Assessment/Plan Problem List/Assessment/Plan Acute kidney injury likely vasomotor in the setting of sepsis Oliguria secondary to above-resolving Hyperkalemia Hypotension requiring pressor support ALOC likely secondary to sepsis Sepsis due to pneumonia, Gram-positive and negative Atrial fibrillation with RVR Lactic acidosis Hypothyroidism Transaminitis likely alcoholic hepatitis Chronic alcoholic dependence Obesity Plan: BUN/creatinine trending down. Urine output increasing. Hold off IV fluids at this time. Started Lasix 40 mg daily, sodium bicarbonate q.i.d. supplementation Baseline creatinine unknown, abdominal ultrasound shows echogenicity is normal in kidneys DC Motrin, avoid NSAIDs given CORINA Recommend cooling measures Continue IV antibiotics and panculture Therapeutic Lovenox per Cardiology We will continue to monitor the patient Thank you for consulting Nephrology Plan discussed with patient, nurse in which all questions have been answered Case discussed with Dr. Nichole Addendum Patient seen and examined, plan discussed with resident. Agree with above, we will follow closely Plan discussed with: Patient, Spouse My Orders My Orders Orders - LOKI MASON RESIDENT Procedure Category Date Status Time Furosemide Injection PHA 11/15/24 In Process (Lasix Injection) 10:00 Sodium Bicarb Tab PHA 11/14/24 In Process 18:00 Dietary Evaluation Review Recommendations by RD: Protein Supplementation Comments: 1) Consider changing from mechanical soft cardiac to mechanical soft hepatic 80g Pro diet 2) Initiate NutriHep qd 3) Encourage optimal PO intake 4) Refer to outpatient RD for weight management 5) Follow-up with cardiology, hepatology, and nephrology 6) Follow-up with social studies teacher r/t ETOH cesastion 7) Continue to monitor I&O, labs, and skin integrity Expected Outcomes/Goals: 1) appetite and labs to improve 2) f/u in 3-5 days LOKI MASON RESIDENT Nov 14, 2024 15:05 NATHALIE NICHOLE MD Nov 14, 2024 18:12
--- NOTE | 2024-11-14 16:05 | DVHPNRES ---
Progress Note Date Seen: Nov 14, 2024 Resident Creating Document: SHARYN YI RESIDENT Medical Necessity Reason Pt with a Central, PICC or Fol: Yes The following are medically ne: Crowell Catheter Reason for crowell catheter: Strict I&O Subjective Review of Systems Patient has afebrile since 48 hours requiring 2.5 L oxygen supplementation. Patient seen and examined in [facility]. He is alert and oriented x3. Family is on the bed side. Nasal cannula supplementation, has left sided crackles. Urine output improved, nephrology started Lasix 40 mg IV daily. Mentioned feeling better. New blood culture revealed no growth in 24 hours of incubation. If patient remains the same we will downgrade to telemetry tomorrow. Objective vital signs Vital Sign Date Time Temp Pulse Resp B/P (MAP) Pulse Ox O2 Delivery O2 Flow Rate FiO2 11/14/24 15:00 86 23 116/60 (78) 95 11/14/24 14:00 Nasal Cannula* 4 36 11/14/24 12:00 98.8 98.8 Total Intake and Output 11/13/24 11/13/24 11/14/24 15:00 23:00 07:00 Intake Total 733.28 ml 1633.28 ml 1350.28 ml Output Total 800 ml 900 ml Balance 733.28 ml 833.28 ml 450.28 ml medications Current Medications Medications Dose Ordered Sig/Dennis Route Start Time Stop Time Status Last Admin Dose Admin Ondansetron HCl 4 mg Q4HP PRN IV 11/10/24 09:45 Vancomycin HCl 0 ml @ 0 mls/hr UD IV 11/10/24 10:15 Multivitamins/ Minerals 1 tab DAILY PO 11/10/24 10:15 11/14/24 09:28 1 TAB Thiamine HCl 100 mg DAILY PO 11/10/24 10:15 11/14/24 09:29 100 MG Folic Acid 1 mg DAILY PO 11/10/24 10:15 11/14/24 09:29 1 MG Albuterol 2.5 mg Q4HWA [facility] 11/11/24 06:00 11/14/24 13:32 2.5 MG Ipratropium [place] 0.5 mg Q4HWA [facility] 11/11/24 06:00 11/14/24 13:32 0.5 MG Norepinephrine Bitartrate 250 ml @ 3.75 mls/hr Q24H IV 11/11/24 01:30 11/11/24 01:35 3.75 MLS/HR Pantoprazole Sodium 40 mg DAILY@0600 PO 11/12/24 06:00 11/14/24 06:34 40 MG Metoprolol Tartrate 12.5 mg BID PO 11/12/24 10:00 11/14/24 09:29 12.5 MG Meropenem 50 ml @ 17 mls/hr Q12HR IV 11/12/24 22:00 UNV Meropenem 50 ml @ 17 mls/hr Q12H IV 11/13/24 18:00 11/14/24 06:34 17 MLS/HR Apixaban 5 mg BID PO 11/13/24 22:00 11/14/24 09:29 5 MG Amiodarone HCl 200 mg Q12HR PO 11/14/24 10:00 11/14/24 09:44 200 MG Furosemide 40 mg DAILY IV 11/15/24 10:00 Sodium Bicarbonate 650 mg QID PO 11/14/24 18:00 Examination Physical examination: General Appearance: Alert, Oriented X3, Cooperative, mild distress. HEENT: Atraumatic, PERRLA, EOMI, Mucous membrane moist/pink Respiratory: Left sided ronchi, crackles. Cardiovascular: Irregular rate, Normal S1, Normal S2, No murmurs, no chest wall tenderness Abdominal: Normal bowel sounds, Soft, No tenderness, No hepatospenomegaly, No masses Extremities: 1+ pedal edema, No clubbing, No cyanosis, Normal pulses, No tenderness/swelling Skin: No rashes, No breakdown, No significant lesion Neuro: Normal gait, Normal speech, Strength at 5/5 X4 ext, Normal tone, Sensation intact, Cranial nerves 3-12 NL, Reflexes 2+ Psych/Mental Status: Mental status NL, Mood N laboratory and microbiology Laboratory Tests 11/14/24 08:24 Test 11/14/24 08:24 Range/Units Serum Glucose 97 74-106 mg/dL Microbiology Date/Time Source Procedure Growth Status 11/12/24 12:50 Blood Blood Culture - Preliminary NO GROWTH AFTER 48 HOURS OF INCUBATION. Resulted 11/10/24 18:02 Nose MRSA Screen - Final Complete 11/10/24 18:02 Urine - Crowell Port Urine Culture - Final Complete Labs and/or images reviewed: Labs reviewed by me, Image(s) reviewed by me Problem List/Assessment/Plan Problem List/Assessment/Plan NEURO: Acute metabolic encephalopathy likely due to sepsis Is on 3 L oxygen with saturation 97% CARDIOVASCULAR: Septic Shock secondary to pneumonia Atrial fibrillation with RVR and secondary hypercoagulable state NSTEMI type 2 likely secondary to above - initial EKG revealed AFib with RVR - Troponin trends are 109>104>92 - cardiology on board - [id number]- VASc score 3 and HAS BLED score 2 - Metoprolol 12.5 mg p.o. b.i.d. and amiodarone 200 mg p.o. b.i.d. - Therapeutic Lovenox at 1 milligram/kg body weight 12 hrly PULMONARY: Possible aspiration pneumonia Possible gram positive/Gram-negative pneumonia - CT chest showed left lower lobe consolidation, suggestive of infectious process - chest x-ray on 5 showed left-sided consolidation, worse than the previous x-ray - Medneb with ipratropium and albuterol q.4 hours - IV meropenem 500 mg q.12 hours and IV vancomycin as per pharmacy - pulmonology on board - BiPAP p.r.n. GASTROINTESTINAL: Hyperbilirubinemia with transaminitis likely due to sepsis Coagulopathy likely due to sepsis Mildly elevated lipase GENITOURINARY: CORINA secondary to hemodynamically mediated/VMN - FENa 0.1% likely pre renal - IV Lasix 40 mg daily - nephrology on board - Avoid nephrotoxic medication - strict I&O METABOLIC: Obesity class 1, BMI 34.7 kg/m2 Moderate protein calorie malnutrition, albumin 2.8 INFECTIOUS DISEASE: Possible aspiration pneumonia Possible gram positive/Gram-negative pneumonia Sepsis with septic shock likely due to above Bacteremia likely due to sepsis Lactic acidosis likely due to sepsis - CT chest showed left lower lobe consolidation, suggestive of infectious process - Medneb with ipratropium and albuterol q.4 hours - IV Meropenem 500 g q.12 hours and IV vancomycin as per pharmacy DIET: Cardiac diet DVT prophylax: Lovenox GI prophylaxis: Protonix Bowel regimen: Code status: Full code LINES/DRAINS/ACCESS: IV access: Peripheral line placed on 08/02 Crowell catheter: placed on 0 0 08/02 DISPOSITION: [facility] Patient's status discussed with Family Critical care time spent more than 41 minutes, including patient care, chart review, and updating the family. Excluding any procedures Case discussed with Dr. Gonsales Plan discussed with: Patient, Other Dietary Evaluation Review Recommendations by RD: Protein Supplementation Comments: 1) Consider changing from mechanical soft cardiac to mechanical soft hepatic 80g Pro diet 2) Initiate NutriHep qd 3) Encourage optimal PO intake 4) Refer to outpatient RD for weight management 5) Follow-up with cardiology, hepatology, and nephrology 6) Follow-up with director of social work r/t ETOH cesastion 7) Continue to monitor I&O, labs, and skin integrity Expected Outcomes/Goals: 1) appetite and labs to improve 2) f/u in 3-5 days Date of Service: Nov 14, 2024 Billing Provider: TOMAS GONSALES MD Common Visit Codes: [id number] INP/OBS CARE(HIGH) SHARYN YI RESIDENT Nov 14, 2024 16:05 TOMAS GONSALES MD Nov 15, 2024 20:24
[2024-11-14] MEDS: VANCOMYCIN 500mg/100mL 100 ML IV ONE (16:34)
[2024-11-14] MEDS: SODIUM BICARBONATE 650 MG TAB PO SCH (17:46)
--- NOTE | 2024-11-14 22:52 | DVHPN2 ---
Progress Note - Dictate Date Seen: Nov 14, 2024 Medical Necessity Reason Pt with a Central, PICC or Fol: Yes The following are medically ne: Crowell Catheter Reason for crowell catheter: Strict I&O Subjective Patient seen and examined at bedside. Remains on supplemental oxygen Overnight events reviewed. vital signs Vital Sign Date Time Temp Pulse Resp B/P (MAP) Pulse Ox O2 Delivery O2 Flow Rate FiO2 11/14/24 22:22 100 20 94 11/14/24 22:18 112/55 11/14/24 22:16 Nasal Cannula* 2 28 11/14/24 20:00 97.7 97.7 Total Intake and Output 11/13/24 11/13/24 11/14/24 15:00 23:00 07:00 Intake Total 733.28 ml 1633.28 ml 1350.28 ml Output Total 800 ml 900 ml Balance 733.28 ml 833.28 ml 450.28 ml medications Current Medications Medications Dose Ordered Sig/Dennis Route Start Time Stop Time Status Last Admin Dose Admin Ondansetron HCl 4 mg Q4HP PRN IV 11/10/24 09:45 Vancomycin HCl 0 ml @ 0 mls/hr UD IV 11/10/24 10:15 Multivitamins/ Minerals 1 tab DAILY PO 11/10/24 10:15 11/14/24 09:28 1 TAB Thiamine HCl 100 mg DAILY PO 11/10/24 10:15 11/14/24 09:29 100 MG Folic Acid 1 mg DAILY PO 11/10/24 10:15 11/14/24 09:29 1 MG Albuterol 2.5 mg Q4HWA [facility] 11/11/24 06:00 11/14/24 22:16 2.5 MG Ipratropium [place] 0.5 mg Q4HWA [facility] 11/11/24 06:00 11/14/24 22:16 0.5 MG Norepinephrine Bitartrate 250 ml @ 3.75 mls/hr Q24H IV 11/11/24 01:30 11/11/24 01:35 3.75 MLS/HR Pantoprazole Sodium 40 mg DAILY@0600 PO 11/12/24 06:00 11/14/24 06:34 40 MG Metoprolol Tartrate 12.5 mg BID PO 11/12/24 10:00 11/14/24 22:18 12.5 MG Meropenem 50 ml @ 17 mls/hr Q12HR IV 11/12/24 22:00 UNV Meropenem 50 ml @ 17 mls/hr Q12H IV 11/13/24 18:00 11/14/24 17:45 17 MLS/HR Apixaban 5 mg BID PO 11/13/24 22:00 11/14/24 22:18 5 MG Amiodarone HCl 200 mg Q12HR PO 11/14/24 10:00 11/14/24 22:17 200 MG Furosemide 40 mg DAILY IV 11/15/24 10:00 Sodium Bicarbonate 650 mg QID PO 11/14/24 18:00 11/14/24 22:18 650 MG objective Gen.: Patient lying in bed in no apparent distress. On supplemental oxygen. Head: Normocephalic, atraumatic. Eyes: EOMI/PERRLA. Ears: Normal hearing. Normal anatomy. Neck/trachea: Trachea midline, supple. Nose: Normal external anatomy. Mouth: Moist mucous membranes. Chest: Decreased air entry bilaterally. No wheezing or rhonchi. Cardiovascular: Positive S1, positive S2. Regular rate and rhythm. Abdomen: Positive bowel sounds in all 4 quadrants. Soft, non-tender, non- distended. : Deferred. Rectal: Deferred. Skin: Warm, dry. Intact. Extremities: 2+ radial pulses bilaterally. No lower extremity edema. Neuro: Awake, alert, oriented x3. No gross motor or sensory deficits. Cranial nerves II through XII intact. Gait not assessed. laboratory and microbiology Laboratory Tests 11/14/24 08:24 Test 11/14/24 08:24 Range/Units Serum Glucose 97 74-106 mg/dL Assessment/Plan Impression: Acute hypoxic respiratory failure Dependence on supplemental oxygen Sepsis Pneumonia Lactic acidosis Chronic atrial fibrillation Acute kidney injury Events: Remains on supplemental oxygen, 2 LPM NC Taper O2 as tolerated Improved O2 requirements CXR reviewed, demonstrates multifocal airspace disease, [id number]. No significant interval change. Head of bed elevation Aspiration precautions Off amiodarone drip, transitioned to amiodarone PO. Continue bronchodilators Continue antibiotics Labs show bicarb of 19. Diurese with Lasix Monitor renal function Monitor electrolytes. Supplement as necessary. Monitor ins and outs. Patient had a bowel movement. Protonix for GI prophylaxis Lovenox for DVT prophylaxis Labs and imaging reviewed. Rest of plan as noted below. Plan: Supplemental oxygen Titrate to keep O2 sats above 92%. Remains off pressors, hemodynamically stable. Continue antibiotics for pneumonia Continue bronchodilators Vitamin supplementation IV fluids Monitor lactic acid level Chronic AFib - Amiodarone PO BID. Cardiology recs appreciated. Diurese with Lasix Monitor renal function d/t CORINA. Follow up Nephrology recs Monitor electrolytes. Supplement as necessary. Monitor ins and outs. GI/DVT prophylaxis. Prognosis: Poor given patient's multiple co-morbidities. Rest of plan per hospitalist and other consultants. Thank you Dr. Gonsales for allowing me to participate in this patient's care. Further recommendations will depend on the patient's clinical course. Please do not hesitate to contact me if you have any questions or concerns. This medical document was created using an electronic medical record system with [employer] system. Although these documentations are being carefully reviewed, there may still be some phonetic and typographical changes. The errors are purely typographical, due to imperfection on the software program, and do not reflect any compromise in the patient's medical care. Dietary Evaluation Review Recommendations by RD: Protein Supplementation Comments: 1) Consider changing from mechanical soft cardiac to mechanical soft hepatic 80g Pro diet 2) Initiate NutriHep qd 3) Encourage optimal PO intake 4) Refer to outpatient RD for weight management 5) Follow-up with cardiology, hepatology, and nephrology 6) Follow-up with social services coordinator r/t ETOH cesastion 7) Continue to monitor I&O, labs, and skin integrity Expected Outcomes/Goals: 1) appetite and labs to improve 2) f/u in 3-5 days Plan discussed with: Patient, Other (NICOLAS Card) MIGUEL DORAN MD Nov 14, 2024 22:52
[2024-11-15] VITALS (33 sets, daily range): BP systolic 89–134; BP diastolic 47–79; PULSE 79–128; RESP 15–27; TEMP 97.4–98.8; O2SAT 92–100
[2024-11-15 04:55] LABS: Hematocrit 36.3 % (41.0-53.0); Hemoglobin 12.2 g/dL (13.5-17.5); Mean Corpuscular Hemoglobin 29.3 pg (28.0-32.0); Mean Corpuscular Volume 87.2 fL (80.0-100.0)
[2024-11-15 05:24] LABS: Potassium 3.8 mmol/L (3.5-5.1); Sodium 139 mmol/L (136-145)
[2024-11-15 05:25] LABS: Anion Gap 10 (5-15)
[2024-11-15 05:30] LABS: BUN/Creatinine Ratio 41.8 (10.0-20.0); Glucose 102 mg/dL (74-106)
[2024-11-15 05:40] LABS: Total Cells Counted 100.0 (100)
[2024-11-15 05:54] LABS: Calcium 7.4 mg/dL (8.7-10.4); Carbon Dioxide 19 mmol/L (20-31); Chloride 110 mmol/L (98-107)
[2024-11-15 05:55] LABS: Blood Urea Nitrogen 82 mg/dL (9-23)
[2024-11-15] MEDS: FUROSEMIDE 40 MG/4 ML VIAL IV SCH (09:10)
--- NOTE | 2024-11-15 11:11 | DVHPN2 ---
Progress Note Date Seen: Nov 15, 2024 Resident Creating Document: LOKI MASON RESIDENT Medical Necessity Reason Pt with a Central, PICC or Fol: Yes The following are medically ne: Crowell Catheter Reason for crowell catheter: Strict I&O Subjective Review of Systems This is a 79-year-old male with atrial fibrillation, hypertension, chronic alcohol dependence who presented to the ER for the evaluation of altered level of consciousness and shortness of breaths associated with cough. Per chart review, patient was confused. On my evaluation, patient is A&O x2, oriented to name and place. No family at bedside. On arrival, EKG showed AFib with RVR. Troponins 109 and downtrending. Nephrology consulted for CORINA Overnight patient has febrile T-max 100.8 F, hypotensive requiring Levophed at 4 mcg/hour. He is also requiring 2 L oxygen supplementation. 11/11-Patient seen and examined in [facility]. On Levophed, nasal cannula supplementation, has left sided crackles. Patient is oliguric, 270 cc of urine overnight. 11/14-patient seen and examined. Urine output increasing, 1700 cc per day. Started Lasix 40 IV daily, bicarb q.i.d.. Hold of IV fluids. 11/15-patient seen and examined. Upper and lower extremity appearing swollen, urine output 4000 in 24 hours, continue Lasix daily. WBC downtrending to 16. BUN/creatinine downtrending. Objective vital signs Vital Sign Date Time Temp Pulse Resp B/P (MAP) Pulse Ox O2 Delivery O2 Flow Rate FiO2 11/15/24 10:00 21 94 Nasal Cannula* 3 32 11/15/24 10:00 115 11/15/24 09:10 107/52 11/15/24 04:00 97.4 97.4 Total Intake and Output 11/14/24 11/14/24 11/15/24 15:00 23:00 07:00 Intake Total 274.98 ml 950 ml 300 ml Output Total 2400 ml 1525 ml Balance 274.98 ml -1450 ml -1225 ml medications Current Medications Medications Dose Ordered Sig/Dennis Route Start Time Stop Time Status Last Admin Dose Admin Ondansetron HCl 4 mg Q4HP PRN IV 11/10/24 09:45 Vancomycin HCl 0 ml @ 0 mls/hr UD IV 11/10/24 10:15 Multivitamins/ Minerals 1 tab DAILY PO 11/10/24 10:15 11/15/24 09:09 1 TAB Thiamine HCl 100 mg DAILY PO 11/10/24 10:15 11/15/24 09:09 100 MG Folic Acid 1 mg DAILY PO 11/10/24 10:15 11/15/24 09:09 1 MG Albuterol 2.5 mg Q4HWA [facility] 11/11/24 06:00 11/15/24 10:38 2.5 MG Ipratropium [place] 0.5 mg Q4HWA [facility] 11/11/24 06:00 11/15/24 10:38 0.5 MG Norepinephrine Bitartrate 250 ml @ 3.75 mls/hr Q24H IV 11/11/24 01:30 11/11/24 01:35 3.75 MLS/HR Pantoprazole Sodium 40 mg DAILY@0600 PO 11/12/24 06:00 11/15/24 06:24 40 MG Metoprolol Tartrate 12.5 mg BID PO 11/12/24 10:00 11/15/24 09:08 12.5 MG Meropenem 50 ml @ 17 mls/hr Q12HR IV 11/12/24 22:00 UNV Meropenem 50 ml @ 17 mls/hr Q12H IV 11/13/24 18:00 11/15/24 06:24 17 MLS/HR Apixaban 5 mg BID PO 11/13/24 22:00 11/15/24 09:09 5 MG Amiodarone HCl 200 mg Q12HR PO 11/14/24 10:00 11/15/24 09:09 200 MG Furosemide 40 mg DAILY IV 11/15/24 10:00 11/15/24 09:10 40 MG Sodium Bicarbonate 650 mg QID PO 11/14/24 18:00 11/15/24 06:24 650 MG Examination Patient lying in bed, in no acute distress General: Obese, palor, mucosae are moist Cardiovascular: Tachycardic and irregular S1 and S2. No murmurs, gallops or rubs. No JVD elevation. 1+ bilateral pitting edema Respiratory: Left-sided crackles heard on auscultation, saturating 94 on 2 L Abdomen: Soft, nontender, nondistended, normoactive bowel sounds, no rebound tenderness, no organomegaly, no masses Genitourinary: Crowell catheter draining dark urine 20 cc. MSK/skin: Mobilizes 4 limbs. Skin is dry and warm Neurological: No motor, no sensitive deficits, normal speech. Pupils are isocoric and reactive. Psych/Mental Status: A/Ox3 laboratory and microbiology Laboratory Tests 11/15/24 04:38 Test 11/15/24 04:38 Range/Units Serum Glucose 102 74-106 mg/dL Microbiology Date/Time Source Procedure Growth Status 11/12/24 12:50 Blood Blood Culture - Preliminary NO GROWTH AFTER 48 HOURS OF INCUBATION. Resulted 11/10/24 18:02 Nose MRSA Screen - Final Complete 11/10/24 18:02 Urine - Crowell Port Urine Culture - Final Complete Labs and/or images reviewed: Labs reviewed by me, Image(s) reviewed by me Problem List/Assessment/Plan Problem List/Assessment/Plan Acute kidney injury likely vasomotor in the setting of sepsis Oliguria secondary to above-resolving Hyperkalemia Hypotension requiring pressor support ALOC likely secondary to sepsis Sepsis due to pneumonia, unknown exactly Atrial fibrillation with RVR Lactic acidosis Hypothyroidism Transaminitis likely alcoholic hepatitis Chronic alcoholic dependence Obesity Plan: BUN/creatinine trending down. Urine output increasing. Hold off IV fluids at this time. Continue Lasix 40 mg daily, sodium bicarbonate q.i.d. supplementation Baseline creatinine unknown, abdominal ultrasound shows echogenicity is normal in kidneys DC Motrin, avoid NSAIDs given CORINA Blood cultures negative, sputum culture pending Recommend cooling measures Continue IV antibiotics and panculture Therapeutic Lovenox per Cardiology We will continue to monitor the patient Thank you for consulting Nephrology Plan discussed with patient, nurse in which all questions have been answered Case discussed with Dr. Nichole Addendum Patient seen and examined, plan discussed with resident. Agree with above, we will follow closely abx per primary sputum cx -yeast --recommend bronchoscopy ,, r/o valley fever ---defer w/u to primary team Plan discussed with: Patient, Spouse My Orders My Orders Orders - LOKI MASON RESIDENT Procedure Category Date Status Time Furosemide Injection PHA 11/15/24 In Process (Lasix Injection) 10:00 Sodium Bicarb Tab PHA 11/14/24 In Process 18:00 Dietary Evaluation Review Recommendations by RD: Protein Supplementation Comments: 1) Consider changing from mechanical soft cardiac to mechanical soft hepatic 80g Pro diet 2) Initiate NutriHep qd 3) Encourage optimal PO intake 4) Refer to outpatient RD for weight management 5) Follow-up with cardiology, hepatology, and nephrology 6) Follow-up with psychiatric social worker supervisor r/t ETOH cesastion 7) Continue to monitor I&O, labs, and skin integrity Expected Outcomes/Goals: 1) appetite and labs to improve 2) f/u in 3-5 days Critical Care Time (mins): 39 LOKI MASON Nov 15, 2024 11:11 NATHALIE NICHOLE MD Nov 15, 2024 19:22
[2024-11-15] MEDS: FLUCONAZOLE 200MG/100ML 100 ML IV ONE (15:45)
--- NOTE | 2024-11-15 16:15 | DVHPNRES ---
Progress Note Date Seen: Nov 15, 2024 Resident Creating Document: SHARYN YI RESIDENT Medical Necessity Reason Pt with a Central, PICC or Fol: Yes The following are medically ne: Crowell Catheter Reason for crowell catheter: Strict I&O Subjective Review of Systems Patient was seen and examined on the [facility]. He is alert and oriented x3 and on nasal cannula 2 L saturating 93%. Patient is afebrile, urine output significantly increased after adding IV Lasix 40 mg daily, negative balance and BUN/creatinine dropped to 82/1.96. Mentioned feeling better. Sputum culture preliminary result revealed few growth of yeast and started IV Diflucan 200 mg daily. Irregular heart rate and goes up to 115-120 and patient is on oral amiodarone 200 p.o. b.i.d. and metoprolol tartrate 12.5 b.i.d. Patient is downgraded to telemetry. Objective vital signs Vital Sign Date Time Temp Pulse Resp B/P (MAP) Pulse Ox O2 Delivery O2 Flow Rate FiO2 11/15/24 14:00 97 26 101/66 (78) 96 11/15/24 14:00 Nasal Cannula* 2 28 11/15/24 12:00 98.4 98.4 Total Intake and Output 11/14/24 11/14/24 11/15/24 15:00 23:00 07:00 Intake Total 274.98 ml 950 ml 300 ml Output Total 2400 ml 1525 ml Balance 274.98 ml -1450 ml -1225 ml medications Current Medications Medications Dose Ordered Sig/Dennis Route Start Time Stop Time Status Last Admin Dose Admin Ondansetron HCl 4 mg Q4HP PRN IV 11/10/24 09:45 Vancomycin HCl 0 ml @ 0 mls/hr UD IV 11/10/24 10:15 Multivitamins/ Minerals 1 tab DAILY PO 11/10/24 10:15 11/15/24 09:09 1 TAB Thiamine HCl 100 mg DAILY PO 11/10/24 10:15 11/15/24 09:09 100 MG Folic Acid 1 mg DAILY PO 11/10/24 10:15 11/15/24 09:09 1 MG Albuterol 2.5 mg Q4HWA [facility] 11/11/24 06:00 11/15/24 14:26 2.5 MG Ipratropium [place] 0.5 mg Q4HWA [facility] 11/11/24 06:00 11/15/24 14:26 0.5 MG Norepinephrine Bitartrate 250 ml @ 3.75 mls/hr Q24H IV 11/11/24 01:30 11/11/24 01:35 3.75 MLS/HR Pantoprazole Sodium 40 mg DAILY@0600 PO 11/12/24 06:00 11/15/24 06:24 40 MG Metoprolol Tartrate 12.5 mg BID PO 11/12/24 10:00 11/15/24 09:08 12.5 MG Meropenem 50 ml @ 17 mls/hr Q12HR IV 11/12/24 22:00 UNV Meropenem 50 ml @ 17 mls/hr Q12H IV 11/13/24 18:00 11/15/24 06:24 17 MLS/HR Apixaban 5 mg BID PO 11/13/24 22:00 11/15/24 09:09 5 MG Amiodarone HCl 200 mg Q12HR PO 11/14/24 10:00 11/15/24 09:09 200 MG Furosemide 40 mg DAILY IV 11/15/24 10:00 11/15/24 09:10 40 MG Sodium Bicarbonate 650 mg QID PO 11/14/24 18:00 11/15/24 11:25 650 MG Fluconazole 100 ml @ 100 mls/hr DAILY IV 11/16/24 10:00 Examination Physical examination: General Appearance: Alert, Oriented X3, Cooperative, mild distress. HEENT: Atraumatic, PERRLA, EOMI, Mucous membrane moist/pink Respiratory: Left sided ronchi, crackles. Cardiovascular: Irregular rate, Normal S1, Normal S2, No murmurs, no chest wall tenderness Abdominal: Normal bowel sounds, Soft, No tenderness, No hepatospenomegaly, No masses Extremities: Trace pedal edema, No clubbing, No cyanosis, Normal pulses, No tenderness/swelling Skin: No rashes, No breakdown, No significant lesion Neuro: Normal gait, Normal speech, Strength at 5/5 X4 ext, Normal tone, Sensation intact, Cranial nerves 3-12 NL, Reflexes 2+ Psych/Mental Status: Mental status NL, Mood N laboratory and microbiology Laboratory Tests 11/15/24 04:38 Test 11/15/24 04:38 Range/Units Serum Glucose 102 74-106 mg/dL Microbiology Date/Time Source Procedure Growth Status 11/14/24 09:32 Sputum Gram Stain - Final Resulted 11/14/24 09:32 Sputum Respiratory Culture - Preliminary Resulted 11/12/24 12:50 Blood Blood Culture - Preliminary NO GROWTH AFTER 72 HOURS OF INCUBATION. Resulted 11/10/24 18:02 Nose MRSA Screen - Final Complete 11/10/24 18:02 Urine - Crowell Port Urine Culture - Final Complete Labs and/or images reviewed: Labs reviewed by me, Image(s) reviewed by me Problem List/Assessment/Plan Problem List/Assessment/Plan NEURO: Acute metabolic encephalopathy likely due to sepsis Is on 2 L oxygen with saturation 97% CARDIOVASCULAR: Septic Shock secondary to pneumonia Atrial fibrillation with RVR and secondary hypercoagulable state NSTEMI type 2 likely secondary to above - initial EKG revealed AFib with RVR - Troponin trends are 109>104>92 - cardiology on board - [id number]- VASc score 3 and HAS BLED score 2 - Metoprolol 12.5 mg p.o. b.i.d. and amiodarone 200 mg p.o. b.i.d. - Therapeutic Lovenox at 1 milligram/kg body weight 12 hrly PULMONARY: Possible aspiration pneumonia Possible gram positive/Gram-negative pneumonia - CT chest showed left lower lobe consolidation, suggestive of infectious process - chest x-ray on 0 5 showed left-sided consolidation, worse than the previous x-ray - Medneb with ipratropium and albuterol q.4 hours - IV meropenem 500 mg q.12 hours and IV vancomycin as per pharmacy - pulmonology on board - BiPAP p.r.n. GASTROINTESTINAL: Hyperbilirubinemia with transaminitis likely due to sepsis Coagulopathy likely due to sepsis Mildly elevated lipase GENITOURINARY: CORINA secondary to hemodynamically mediated/VMN - FENa 0.1% likely pre renal - IV Lasix 40 mg daily - nephrology on board - Avoid nephrotoxic medication - strict I&O METABOLIC: Obesity class 1, BMI 34.7 kg/m2 Moderate protein calorie malnutrition, albumin 2.8 INFECTIOUS DISEASE: Possible aspiration pneumonia Possible gram positive/Gram-negative pneumonia Sepsis with septic shock likely due to above Bacteremia likely due to sepsis Lactic acidosis likely due to sepsis - CT chest showed left lower lobe consolidation, suggestive of infectious process - Medneb with ipratropium and albuterol q.4 hours - IV Meropenem 500 g q.12 hours and IV vancomycin as per pharmacy DIET: Cardiac diet DVT prophylax: Lovenox GI prophylaxis: Protonix Bowel regimen: Code status: Full code LINES/DRAINS/ACCESS: IV access: Peripheral line placed on 0 7/0 08/02 Crowell catheter: placed on 0 7/0 08/02 DISPOSITION: [facility] Patient's status discussed with Family Critical care time spent more than 41 minutes, including patient care, chart review, and updating the family. Excluding any procedures Case discussed with Dr. Gonsales Plan discussed with: Patient, Other My Orders My Orders Orders - SHARYN YI Procedure Category Date Status Time Transfer Orders XFER 11/15/24 Transmitted 10:39 Fluconazole PHA 11/15/24 In Process 200mg/100ml (Diflucan 15:30 Fluconazole PHA 11/16/24 In Process 200mg/100ml (Diflucan 10:00 Dietary Evaluation Review Recommendations by RD: Protein Supplementation Comments: 1) Consider changing from mechanical soft cardiac to mechanical soft hepatic 80g Pro diet 2) Initiate NutriHep qd 3) Encourage optimal PO intake 4) Refer to outpatient RD for weight management 5) Follow-up with cardiology, hepatology, and nephrology 6) Follow-up with social services specialist r/t ETOH cesastion 7) Continue to monitor I&O, labs, and skin integrity Expected Outcomes/Goals: 1) appetite and labs to improve 2) f/u in 3-5 days Date of Service: Nov 15, 2024 Billing Provider: TOMAS GONSALES MD Common Visit Codes: [id number] INP/OBS CARE(HIGH) SHARYN YI Nov 15, 2024 16:15 TOMAS GONSALES MD Nov 15, 2024 20:30
[2024-11-15] MEDS: VANCOMYCIN 500mg/100mL 100 ML IV ONE (16:52)
--- NOTE | 2024-11-15 23:54 | DVHPN2 ---
Progress Note - Dictate Date Seen: Nov 15, 2024 Medical Necessity Reason Pt with a Central, PICC or Fol: Yes The following are medically ne: Crowell Catheter Reason for crowell catheter: Strict I&O Subjective Patient seen and examined at bedside. Remains on supplemental oxygen Overnight events reviewed. vital signs Vital Sign Date Time Temp Pulse Resp B/P (MAP) Pulse Ox O2 Delivery O2 Flow Rate FiO2 11/15/24 22:23 99 119/70 11/15/24 22:10 20 97 11/15/24 22:04 Nasal Cannula 3.0 11/15/24 22:04 32 11/15/24 20:00 98.2 98.2 Total Intake and Output 11/14/24 11/14/24 11/15/24 15:00 23:00 07:00 Intake Total 274.98 ml 950 ml 300 ml Output Total 2400 ml 1525 ml Balance 274.98 ml -1450 ml -1225 ml medications Current Medications Medications Dose Ordered Sig/Dennis Route Start Time Stop Time Status Last Admin Dose Admin Ondansetron HCl 4 mg Q4HP PRN IV 11/10/24 09:45 Vancomycin HCl 0 ml @ 0 mls/hr UD IV 11/10/24 10:15 Multivitamins/ Minerals 1 tab DAILY PO 11/10/24 10:15 11/15/24 09:09 1 TAB Thiamine HCl 100 mg DAILY PO 11/10/24 10:15 11/15/24 09:09 100 MG Folic Acid 1 mg DAILY PO 11/10/24 10:15 11/15/24 09:09 1 MG Albuterol 2.5 mg Q4HWA [facility] 11/11/24 06:00 11/15/24 22:04 2.5 MG Ipratropium [place] 0.5 mg Q4HWA [facility] 11/11/24 06:00 11/15/24 22:04 0.5 MG Norepinephrine Bitartrate 250 ml @ 3.75 mls/hr Q24H IV 11/11/24 01:30 11/11/24 01:35 3.75 MLS/HR Pantoprazole Sodium 40 mg DAILY@0600 PO 11/12/24 06:00 11/15/24 06:24 40 MG Metoprolol Tartrate 12.5 mg BID PO 11/12/24 10:00 11/15/24 22:23 12.5 MG Meropenem 50 ml @ 17 mls/hr Q12HR IV 11/12/24 22:00 UNV Meropenem 50 ml @ 17 mls/hr Q12H IV 11/13/24 18:00 11/15/24 17:36 17 MLS/HR Apixaban 5 mg BID PO 11/13/24 22:00 11/15/24 22:22 5 MG Amiodarone HCl 200 mg Q12HR PO 11/14/24 10:00 11/15/24 22:22 200 MG Furosemide 40 mg DAILY IV 11/15/24 10:00 11/15/24 09:10 40 MG Sodium Bicarbonate 650 mg QID PO 11/14/24 18:00 11/15/24 22:22 650 MG Fluconazole 100 ml @ 100 mls/hr DAILY IV 11/16/24 10:00 objective Gen.: Patient lying in bed in no apparent distress. On supplemental oxygen. Head: Normocephalic, atraumatic. Eyes: EOMI/PERRLA. Ears: Normal hearing. Normal anatomy. Neck/trachea: Trachea midline, supple. Nose: Normal external anatomy. Mouth: Moist mucous membranes. Chest: Decreased air entry bilaterally. No wheezing or rhonchi. Cardiovascular: Positive S1, positive S2. Regular rate and rhythm. Abdomen: Positive bowel sounds in all 4 quadrants. Soft, non-tender, non- distended. : Deferred. Rectal: Deferred. Skin: Warm, dry. Intact. Extremities: 2+ radial pulses bilaterally. No lower extremity edema. Neuro: Awake, alert, oriented x3. No gross motor or sensory deficits. Cranial nerves II through XII intact. Gait not assessed. laboratory and microbiology Laboratory Tests 11/15/24 04:38 Test 11/15/24 04:38 Range/Units Serum Glucose 102 74-106 mg/dL Assessment/Plan Impression: Acute hypoxic respiratory failure Dependence on supplemental oxygen Sepsis Pneumonia Lactic acidosis Chronic atrial fibrillation Acute kidney injury Events: Remains on supplemental oxygen, 2 LPM NC Taper O2 as tolerated Improved O2 requirements Head of bed elevation Aspiration precautions Amiodarone PO. Continue bronchodilators Continue antibiotics Sputum cultures grew yeast. Incentive spirometry Diurese with Lasix Monitor renal function Monitor electrolytes. Supplement as necessary. Monitor ins and outs. Continue PT. Protonix for GI prophylaxis Lovenox for DVT prophylaxis Labs and imaging reviewed. Rest of plan as noted below. Plan: Supplemental oxygen Titrate to keep O2 sats above 92%. Remains off pressors, hemodynamically stable. Continue antibiotics for pneumonia Continue bronchodilators Vitamin supplementation IV fluids Monitor lactic acid level Chronic AFib - Amiodarone PO BID. Cardiology recs appreciated. Diurese with Lasix Monitor renal function d/t CORINA. Follow up Nephrology recs Monitor electrolytes. Supplement as necessary. Monitor ins and outs. GI/DVT prophylaxis. Prognosis: Poor given patient's multiple co-morbidities. Rest of plan per hospitalist and other consultants. Thank you Dr. Gonsales for allowing me to participate in this patient's care. Further recommendations will depend on the patient's clinical course. Please do not hesitate to contact me if you have any questions or concerns. This medical document was created using an electronic medical record system with [employer] system. Although these documentations are being carefully reviewed, there may still be some phonetic and typographical changes. The errors are purely typographical, due to imperfection on the software program, and do not reflect any compromise in the patient's medical care. Dietary Evaluation Review Recommendations by RD: Protein Supplementation Comments: 1) Consider changing from mechanical soft cardiac to mechanical soft hepatic 80g Pro diet 2) Initiate NutriHep qd 3) Encourage optimal PO intake 4) Refer to outpatient RD for weight management 5) Follow-up with cardiology, hepatology, and nephrology 6) Follow-up with social sciences research scientist r/t ETOH cesastion 7) Continue to monitor I&O, labs, and skin integrity Expected Outcomes/Goals: 1) appetite and labs to improve 2) f/u in 3-5 days Plan discussed with: Patient, Other (NICOLAS Card) MIGUEL DORAN MD Nov 15, 2024 23:54
[2024-11-16] VITALS (18 sets, daily range): BP systolic 103–122; BP diastolic 58–84; PULSE 54–116; RESP 18–22; TEMP 97.7–98.3; O2SAT 92–100
[2024-11-16 06:40] LABS: Hematocrit 37.5 % (41.0-53.0); Hemoglobin 12.6 g/dL (13.5-17.5); Mean Corpuscular Hemoglobin 29.3 pg (28.0-32.0); Mean Corpuscular Volume 87.1 fL (80.0-100.0)
[2024-11-16 07:04] LABS: Anion Gap 10 (5-15); BUN/Creatinine Ratio 43.3 (10.0-20.0); Carbon Dioxide 22 mmol/L (20-31); Glucose 103 mg/dL (74-106); Potassium 3.8 mmol/L (3.5-5.1); Sodium 140 mmol/L (136-145); Total Protein 6.0 g/dL (5.7-8.2)
[2024-11-16 07:07] LABS: Alanine Aminotransferase 73 U/L (7-40); Albumin 2.4 g/dL (3.2-4.8); Alkaline Phosphatase 141 U/L (46-116); Bilirubin, Total 1.3 mg/dL (0.2-1.0); Blood Urea Nitrogen 65 mg/dL (9-23); Calcium 7.1 mg/dL (8.7-10.4); Chloride 108 mmol/L (98-107)
[2024-11-16 07:54] LABS: Total Cells Counted 100.0 (100)
[2024-11-16] MEDS: FLUCONAZOLE 200MG/100ML 100 ML IV SCH (10:00)
--- NOTE | 2024-11-16 16:21 | DVHPN2 ---
Progress Note Date Seen: Nov 16, 2024 Resident Creating Document: LOKI MASON RESIDENT Medical Necessity Reason Pt with a Central, PICC or Fol: Yes The following are medically ne: Crowell Catheter Reason for crowell catheter: Strict I&O Subjective Review of Systems This is a 79-year-old male with atrial fibrillation, hypertension, chronic alcohol dependence who presented to the ER for the evaluation of altered level of consciousness and shortness of breaths associated with cough. Per chart review, patient was confused. On my evaluation, patient is A&O x2, oriented to name and place. No family at bedside. On arrival, EKG showed AFib with RVR. Troponins 109 and downtrending. Nephrology consulted for CORINA Overnight patient has febrile T-max 100.8 F, hypotensive requiring Levophed at 4 mcg/hour. He is also requiring 2 L oxygen supplementation. 11/11-Patient seen and examined in [facility]. On Levophed, nasal cannula supplementation, has left sided crackles. Patient is oliguric, 270 cc of urine overnight. 11/14-patient seen and examined. Urine output increasing, 1700 cc per day. Started Lasix 40 IV daily, bicarb q.i.d.. Hold of IV fluids. 11/15-patient seen and examined. Upper and lower extremity appearing swollen, urine output 4000 in 24 hours, continue Lasix daily. WBC downtrending to 16. BUN/creatinine downtrending. 11/16-patient seen and examined, on 3 L NC. Urine output 2525cc, WBC downtrending to 15, respiratory culture growing Annika. Continue bicarb and Lasix. Creatinine downtrending. Objective vital signs Vital Sign Date Time Temp Pulse Resp B/P (MAP) Pulse Ox O2 Delivery O2 Flow Rate FiO2 11/16/24 15:16 95 18 98 11/16/24 15:06 Nasal Cannula* 3 32 11/16/24 13:00 98.0 113/84 (94) 98.0 Total Intake and Output 11/15/24 11/15/24 11/16/24 15:00 23:00 07:00 Intake Total 350 ml 1750 ml 100 ml Output Total 2025 ml 500 ml Balance 350 ml -275 ml -400 ml medications Current Medications Medications Dose Ordered Sig/Dennis Route Start Time Stop Time Status Last Admin Dose Admin Ondansetron HCl 4 mg Q4HP PRN IV 11/10/24 09:45 Vancomycin HCl 0 ml @ 0 mls/hr UD IV 11/10/24 10:15 Multivitamins/ Minerals 1 tab DAILY PO 11/10/24 10:15 11/16/24 10:00 1 TAB Thiamine HCl 100 mg DAILY PO 11/10/24 10:15 11/16/24 10:00 100 MG Folic Acid 1 mg DAILY PO 11/10/24 10:15 11/16/24 10:00 1 MG Albuterol 2.5 mg Q4HWA [facility] 11/11/24 06:00 11/16/24 15:06 2.5 MG Ipratropium [place] 0.5 mg Q4HWA [facility] 11/11/24 06:00 11/16/24 15:06 0.5 MG Norepinephrine Bitartrate 250 ml @ 3.75 mls/hr Q24H IV 11/11/24 01:30 11/11/24 01:35 3.75 MLS/HR Pantoprazole Sodium 40 mg DAILY@0600 PO 11/12/24 06:00 11/16/24 05:48 40 MG Metoprolol Tartrate 12.5 mg BID PO 11/12/24 10:00 11/16/24 10:00 12.5 MG Meropenem 50 ml @ 17 mls/hr Q12HR IV 11/12/24 22:00 UNV Meropenem 50 ml @ 17 mls/hr Q12H IV 11/13/24 18:00 11/16/24 05:48 17 MLS/HR Apixaban 5 mg BID PO 11/13/24 22:00 11/16/24 10:00 5 MG Amiodarone HCl 200 mg Q12HR PO 11/14/24 10:00 11/16/24 10:00 200 MG Furosemide 40 mg DAILY IV 11/15/24 10:00 11/16/24 10:00 40 MG Sodium Bicarbonate 650 mg QID PO 11/14/24 18:00 11/16/24 05:48 650 MG Fluconazole 100 ml @ 100 mls/hr DAILY IV 11/16/24 10:00 11/16/24 10:00 100 MLS/HR Examination Patient lying in bed, in no acute distress General: Obese, palor, mucosae are moist Cardiovascular: Tachycardic and irregular S1 and S2. No murmurs, gallops or rubs. No JVD elevation. 1+ bilateral pitting edema Respiratory: Left-sided crackles heard on auscultation, saturating 94 on 2 L Abdomen: Soft, nontender, nondistended, normoactive bowel sounds, no rebound tenderness, no organomegaly, no masses Genitourinary: Crowell catheter draining slightly dark yellow urine MSK/skin: Mobilizes 4 limbs. Skin is dry and warm Neurological: No motor, no sensitive deficits, normal speech. Pupils are isocoric and reactive. Psych/Mental Status: A/Ox3 laboratory and microbiology Laboratory Tests 11/16/24 06:14 Test 11/16/24 06:14 Range/Units Serum Glucose 103 74-106 mg/dL Microbiology Date/Time Source Procedure Growth Status 11/14/24 09:32 Sputum Gram Stain - Final Resulted 11/14/24 09:32 Respiratory Culture - Preliminary Presumptive Annika albicans Resulted 11/12/24 12:50 Blood Blood Culture - Preliminary NO GROWTH AFTER 72 HOURS OF INCUBATION. Resulted 11/10/24 18:02 Nose MRSA Screen - Final Complete 11/10/24 18:02 Urine - Crowell Port Urine Culture - Final Complete Labs and/or images reviewed: Labs reviewed by me, Image(s) reviewed by me Problem List/Assessment/Plan Problem List/Assessment/Plan Acute kidney injury likely vasomotor in the setting of sepsis Oliguria secondary to above-resolving Hyperkalemia Hypotension requiring pressor support ALOC likely secondary to sepsis Sepsis due to pneumonia, Gram-positive and negative ? Fungal Atrial fibrillation with RVR Lactic acidosis Hypothyroidism Transaminitis likely alcoholic hepatitis Chronic alcoholic dependence Obesity Plan: BUN/creatinine trending down. Urine output increasing. Hold off IV fluids at this time. Continue Lasix 40 mg daily, sodium bicarbonate q.i.d. supplementation+ Sputum culture growing yeast-rule out valley fever, recommend coccidial antibody testing--defer to hospitalist Baseline creatinine unknown, abdominal ultrasound shows echogenicity is normal in kidneys DC Motrin, avoid NSAIDs given CORINA Blood cultures negative, sputum culture pending Recommend cooling measures Continue IV antibiotics and panculture Therapeutic Lovenox per Cardiology We will continue to monitor the patient Thank you for consulting Nephrology Plan discussed with patient, nurse in which all questions have been answered Case discussed with Dr. Nichole Addendum Patient seen and examined, plan discussed with resident. Agree with above, we will follow closely DC Crowell catheter Plan discussed with: Patient Dietary Evaluation Review Recommendations by RD: Protein Supplementation Comments: 1) Consider changing from mechanical soft cardiac to mechanical soft hepatic 80g Pro diet 2) Initiate NutriHep qd 3) Encourage optimal PO intake 4) Refer to outpatient RD for weight management 5) Follow-up with cardiology, hepatology, and nephrology 6) Follow-up with web content & social media manager r/t ETOH cesastion 7) Continue to monitor I&O, labs, and skin integrity Expected Outcomes/Goals: 1) appetite and labs to improve 2) f/u in 3-5 days LOKI MASON Nov 16, 2024 16:21 NATHALIE NICHOLE MD Nov 16, 2024 18:50
--- NOTE | 2024-11-16 16:27 | DVHPNRES ---
Progress Note Date Seen: Nov 16, 2024 Resident Creating Document: SHARYN YI RESIDENT Medical Necessity Reason Pt with a Central, PICC or Fol: Yes The following are medically ne: Crowell Catheter Reason for crowell catheter: Strict I&O Subjective Review of Systems Patient was seen and examined on the bedsside. He is alert and oriented x3 and on nasal cannula 2 L saturating 93%. Patient is afebrile, urine output significantly increased after adding IV Lasix 40 mg daily, negative balance and BUN/creatinine dropped to 65/1.50. Mentioned feeling better. Sputum culture preliminary result revealed Annika albicans. Irregular heart rate and goes up to 115-120 and patient is on oral amiodarone 200 p.o. b.i.d. and metoprolol tartrate 12.5 b.i.d. Objective vital signs Vital Sign Date Time Temp Pulse Resp B/P (MAP) Pulse Ox O2 Delivery O2 Flow Rate FiO2 11/16/24 15:16 95 18 98 11/16/24 15:06 Nasal Cannula* 3 32 11/16/24 13:00 98.0 113/84 (94) 98.0 Total Intake and Output 11/15/24 11/15/24 11/16/24 15:00 23:00 07:00 Intake Total 350 ml 1750 ml 100 ml Output Total 2025 ml 500 ml Balance 350 ml -275 ml -400 ml medications Current Medications Medications Dose Ordered Sig/Dennis Route Start Time Stop Time Status Last Admin Dose Admin Ondansetron HCl 4 mg Q4HP PRN IV 11/10/24 09:45 Vancomycin HCl 0 ml @ 0 mls/hr UD IV 11/10/24 10:15 Multivitamins/ Minerals 1 tab DAILY PO 11/10/24 10:15 11/16/24 10:00 1 TAB Thiamine HCl 100 mg DAILY PO 11/10/24 10:15 11/16/24 10:00 100 MG Folic Acid 1 mg DAILY PO 11/10/24 10:15 11/16/24 10:00 1 MG Albuterol 2.5 mg Q4HWA NEB 11/11/24 06:00 11/16/24 15:06 2.5 MG Ipratropium [place] 0.5 mg Q4HWA NEB 11/11/24 06:00 11/16/24 15:06 0.5 MG Norepinephrine Bitartrate 250 ml @ 3.75 mls/hr Q24H IV 11/11/24 01:30 11/11/24 01:35 3.75 MLS/HR Pantoprazole Sodium 40 mg DAILY@0600 PO 11/12/24 06:00 11/16/24 05:48 40 MG Metoprolol Tartrate 12.5 mg BID PO 11/12/24 10:00 11/16/24 10:00 12.5 MG Meropenem 50 ml @ 17 mls/hr Q12HR IV 11/12/24 22:00 UNV Meropenem 50 ml @ 17 mls/hr Q12H IV 11/13/24 18:00 11/16/24 05:48 17 MLS/HR Apixaban 5 mg BID PO 11/13/24 22:00 11/16/24 10:00 5 MG Amiodarone HCl 200 mg Q12HR PO 11/14/24 10:00 11/16/24 10:00 200 MG Furosemide 40 mg DAILY IV 11/15/24 10:00 11/16/24 10:00 40 MG Sodium Bicarbonate 650 mg QID PO 11/14/24 18:00 11/16/24 05:48 650 MG Fluconazole 100 ml @ 100 mls/hr DAILY IV 11/16/24 10:00 11/16/24 10:00 100 MLS/HR Examination Physical examination: General Appearance: Alert, Oriented X3, Cooperative, mild distress. HEENT: Atraumatic, PERRLA, EOMI, Mucous membrane moist/pink Respiratory: Left sided ronchi, crackles. Cardiovascular: Irregular rate, Normal S1, Normal S2, No murmurs, no chest wall tenderness Abdominal: Normal bowel sounds, Soft, No tenderness, No hepatospenomegaly, No masses Extremities: Trace pedal edema, No clubbing, No cyanosis, Normal pulses, No tenderness/swelling Skin: No rashes, No breakdown, No significant lesion Neuro: Normal gait, Normal speech, Strength at 5/5 X4 ext, Normal tone, Sensation intact, Cranial nerves 3-12 NL, Reflexes 2+ Psych/Mental Status: Mental status NL, Mood N laboratory and microbiology Laboratory Tests 11/16/24 06:14 Test 11/16/24 06:14 Range/Units Serum Glucose 103 74-106 mg/dL Microbiology Date/Time Source Procedure Growth Status 11/14/24 09:32 Sputum Gram Stain - Final Resulted 11/14/24 09:32 Respiratory Culture - Preliminary Presumptive Annika albicans Resulted 11/12/24 12:50 Blood Blood Culture - Preliminary NO GROWTH AFTER 72 HOURS OF INCUBATION. Resulted 11/10/24 18:02 Nose MRSA Screen - Final Complete 11/10/24 18:02 Urine - Crowell Port Urine Culture - Final Complete Labs and/or images reviewed: Labs reviewed by me, Image(s) reviewed by me Problem List/Assessment/Plan Problem List/Assessment/Plan NEURO: Acute metabolic encephalopathy likely due to sepsis Is on 2 L oxygen with saturation 97% CARDIOVASCULAR: Septic Shock secondary to pneumonia Atrial fibrillation with RVR and secondary hypercoagulable state NSTEMI type 2 likely secondary to above - initial EKG revealed AFib with RVR - Troponin trends are 109>104>92 - cardiology on board - [id number]- VASc score 3 and HAS BLED score 2 - Metoprolol 12.5 mg p.o. b.i.d. and amiodarone 200 mg p.o. b.i.d. - Eloquis 5 mg bid PULMONARY: Possible aspiration pneumonia Possible gram positive/Gram-negative pneumonia - CT chest showed left lower lobe consolidation, suggestive of infectious process - chest x-ray on 0 5 showed left-sided consolidation, worse than the previous x-ray - Medneb with ipratropium and albuterol q.4 hours - IV meropenem 500 mg q.12 hours , IV vancomycin as per pharmacy and IV diflucan 200 mg daily - pulmonology on board - BiPAP p.r.n. GASTROINTESTINAL: Hyperbilirubinemia with transaminitis likely due to sepsis Coagulopathy likely due to sepsis Mildly elevated lipase GENITOURINARY: CORINA secondary to hemodynamically mediated/VMN - FENa 0.1% likely pre renal - IV Lasix 40 mg daily - nephrology on board - Avoid nephrotoxic medication - strict I&O METABOLIC: Obesity class 1, BMI 34.7 kg/m2 Moderate protein calorie malnutrition, albumin 2.8 INFECTIOUS DISEASE: Possible aspiration pneumonia Possible gram positive/Gram-negative pneumonia Sepsis with septic shock likely due to above Bacteremia likely due to sepsis Lactic acidosis likely due to sepsis - CT chest showed left lower lobe consolidation, suggestive of infectious process - Medneb with ipratropium and albuterol q.4 hours - IV Meropenem 500 g q.12 hours and IV vancomycin as per pharmacy DIET: Cardiac diet DVT prophylax: Eloquis GI prophylaxis: Protonix Bowel regimen: Code status: Full code LINES/DRAINS/ACCESS: IV access: Peripheral line placed on 0 7/0 08/02 Crowell catheter: placed on 0 7/0 08/02 DISPOSITION: Telemetry Case discussed with Dr. Gonsales Plan discussed with: Patient, Other Dietary Evaluation Review Recommendations by RD: Protein Supplementation Comments: 1) Consider changing from mechanical soft cardiac to mechanical soft hepatic 80g Pro diet 2) Initiate NutriHep qd 3) Encourage optimal PO intake 4) Refer to outpatient RD for weight management 5) Follow-up with cardiology, hepatology, and nephrology 6) Follow-up with group social worker r/t ETOH cesastion 7) Continue to monitor I&O, labs, and skin integrity Expected Outcomes/Goals: 1) appetite and labs to improve 2) f/u in 3-5 days Date of Service: Nov 16, 2024 Billing Provider: TOMAS GONSALES MD Common Visit Codes: 73175-[id number] INP/OBS CARE(HIGH) SHARYN YI RESIDENT Nov 16, 2024 16:27 TOMAS GONSALES MD Nov 22, 2024 16:12
[2024-11-16] MEDS: VANCOMYCIN 1GM/200ML PM 200 ML IV ONE (17:00)
--- NOTE | 2024-11-16 20:00 | DVHPN2 ---
Progress Note - Dictate Date Seen: Nov 16, 2024 Medical Necessity Reason Pt with a Central, PICC or Fol: Yes The following are medically ne: Crowell Catheter Reason for crowell catheter: Strict I&O Subjective Patient seen and examined at bedside. Remains on supplemental oxygen Overnight events reviewed. vital signs Vital Sign Date Time Temp Pulse Resp B/P (MAP) Pulse Ox O2 Delivery O2 Flow Rate FiO2 11/16/24 18:15 109 18 99 11/16/24 18:09 Nasal Cannula* 3 32 11/16/24 16:47 98.2 122/73 (89) 98.2 Total Intake and Output 11/15/24 11/15/24 11/16/24 15:00 23:00 07:00 Intake Total 350 ml 1750 ml 100 ml Output Total 2025 ml 500 ml Balance 350 ml -275 ml -400 ml medications Current Medications Medications Dose Ordered Sig/Dennis Route Start Time Stop Time Status Last Admin Dose Admin Ondansetron HCl 4 mg Q4HP PRN IV 11/10/24 09:45 Vancomycin HCl 0 ml @ 0 mls/hr UD IV 11/10/24 10:15 Multivitamins/ Minerals 1 tab DAILY PO 11/10/24 10:15 11/16/24 10:00 1 TAB Thiamine HCl 100 mg DAILY PO 11/10/24 10:15 11/16/24 10:00 100 MG Folic Acid 1 mg DAILY PO 11/10/24 10:15 11/16/24 10:00 1 MG Albuterol 2.5 mg Q4HWA [facility] 11/11/24 06:00 11/16/24 18:08 2.5 MG Ipratropium [place] 0.5 mg Q4HWA [facility] 11/11/24 06:00 11/16/24 18:08 0.5 MG Norepinephrine Bitartrate 250 ml @ 3.75 mls/hr Q24H IV 11/11/24 01:30 11/11/24 01:35 3.75 MLS/HR Pantoprazole Sodium 40 mg DAILY@0600 PO 11/12/24 06:00 11/16/24 05:48 40 MG Metoprolol Tartrate 12.5 mg BID PO 11/12/24 10:00 11/16/24 10:00 12.5 MG Meropenem 50 ml @ 17 mls/hr Q12HR IV 11/12/24 22:00 UNV Meropenem 50 ml @ 17 mls/hr Q12H IV 11/13/24 18:00 11/16/24 18:09 17 MLS/HR Apixaban 5 mg BID PO 11/13/24 22:00 11/16/24 10:00 5 MG Amiodarone HCl 200 mg Q12HR PO 11/14/24 10:00 11/16/24 10:00 200 MG Furosemide 40 mg DAILY IV 11/15/24 10:00 11/16/24 10:00 40 MG Sodium Bicarbonate 650 mg QID PO 11/14/24 18:00 11/16/24 18:09 650 MG Fluconazole 100 ml @ 100 mls/hr DAILY IV 11/16/24 10:00 11/16/24 10:00 100 MLS/HR objective Gen.: Patient lying in bed in no apparent distress. On supplemental oxygen. Head: Normocephalic, atraumatic. Eyes: EOMI/PERRLA. Ears: Normal hearing. Normal anatomy. Neck/trachea: Trachea midline, supple. Nose: Normal external anatomy. Mouth: Moist mucous membranes. Chest: Decreased air entry bilaterally. No wheezing or rhonchi. Cardiovascular: Positive S1, positive S2. Regular rate and rhythm. Abdomen: Positive bowel sounds in all 4 quadrants. Soft, non-tender, non- distended. : Deferred. Rectal: Deferred. Skin: Warm, dry. Intact. Extremities: 2+ radial pulses bilaterally. No lower extremity edema. Neuro: Awake, alert, oriented x3. No gross motor or sensory deficits. Cranial nerves II through XII intact. Gait not assessed. laboratory and microbiology Laboratory Tests 11/16/24 06:14 Test 11/16/24 06:14 Range/Units Serum Glucose 103 74-106 mg/dL Assessment/Plan Impression: Acute hypoxic respiratory failure Dependence on supplemental oxygen Sepsis Pneumonia Lactic acidosis Chronic atrial fibrillation Acute kidney injury Events: Remains on supplemental oxygen, 2 LPM NC Taper O2 as tolerated Stable O2 requirements Head of bed elevation Aspiration precautions Amiodarone PO. Continue bronchodilators Continue antibiotics WBC trending down, 15.6 K. Sputum cultures grew yeast. Continue antifungal Incentive spirometry Diurese with Lasix Monitor renal function - BUN 65 and Cr 1.5, improving Monitor electrolytes. Supplement as necessary. Monitor ins and outs. Maintain euvolemia Continue PT. Protonix for GI prophylaxis Lovenox for DVT prophylaxis Labs and imaging reviewed. Rest of plan as noted below. Plan: Supplemental oxygen Titrate to keep O2 sats above 92%. Remains off pressors, hemodynamically stable. Continue antibiotics for pneumonia Continue bronchodilators Vitamin supplementation IV fluids Monitor lactic acid level Chronic AFib - Amiodarone PO BID. Cardiology recs appreciated. Diurese with Lasix Monitor renal function d/t CORINA. Follow up Nephrology recs Monitor electrolytes. Supplement as necessary. Monitor ins and outs. GI/DVT prophylaxis. Prognosis: Guarded given patient's multiple co-morbidities. Rest of plan per hospitalist and other consultants. Thank you Dr. Gonsales for allowing me to participate in this patient's care. Further recommendations will depend on the patient's clinical course. Please do not hesitate to contact me if you have any questions or concerns. This medical document was created using an electronic medical record system with [employer] dictation system. Although these documentations are being carefully reviewed, there may still be some phonetic and typographical changes. The errors are purely typographical, due to imperfection on the software program, and do not reflect any compromise in the patient's medical care. Dietary Evaluation Review Recommendations by RD: Protein Supplementation Comments: 1) Consider changing from mechanical soft cardiac to mechanical soft hepatic 80g Pro diet 2) Initiate NutriHep qd 3) Encourage optimal PO intake 4) Refer to outpatient RD for weight management 5) Follow-up with cardiology, hepatology, and nephrology 6) Follow-up with social services r/t ETOH cesastion 7) Continue to monitor I&O, labs, and skin integrity Expected Outcomes/Goals: 1) appetite and labs to improve 2) f/u in 3-5 days Plan discussed with: Patient, Other (NICOLAS Wood) MIGUEL DORAN MD Nov 16, 2024 20:00
[2024-11-17] VITALS (19 sets, daily range): BP systolic 108–138; BP diastolic 77–84; PULSE 70–115; RESP 16–20; TEMP 97.4–98.6; O2SAT 94–99
[2024-11-17 07:11] LABS: Anion Gap 9 (5-15); Carbon Dioxide 26 mmol/L (20-31); Potassium 4.3 mmol/L (3.5-5.1); Sodium 143 mmol/L (136-145)
[2024-11-17 07:17] LABS: BUN/Creatinine Ratio 48.0 (10.0-20.0); Glucose 93 mg/dL (74-106)
[2024-11-17 07:18] LABS: Blood Urea Nitrogen 61 mg/dL (9-23); Calcium 7.6 mg/dL (8.7-10.4); Chloride 108 mmol/L (98-107)
[2024-11-17 07:29] LABS: Hematocrit 38.2 % (41.0-53.0); Hemoglobin 12.8 g/dL (13.5-17.5); Mean Corpuscular Hemoglobin 29.2 pg (28.0-32.0); Mean Corpuscular Volume 87.4 fL (80.0-100.0); Nucleated Red Blood Cells % 0.1 %
--- NOTE | 2024-11-17 10:47 | DVHPN2 ---
Progress Note Date Seen: Nov 17, 2024 Resident Creating Document: LOKI MASON RESIDENT Medical Necessity Reason Pt with a Central, PICC or Fol: No Reason for crowell catheter: Strict I&O Subjective Review of Systems This is a 79-year-old male with atrial fibrillation, hypertension, chronic alcohol dependence who presented to the ER for the evaluation of altered level of consciousness and shortness of breaths associated with cough. Per chart review, patient was confused. On my evaluation, patient is A&O x2, oriented to name and place. No family at bedside. On arrival, EKG showed AFib with RVR. Troponins 109 and downtrending. Nephrology consulted for CORINA Overnight patient has febrile T-max 100.8 F, hypotensive requiring Levophed at 4 mcg/hour. He is also requiring 2 L oxygen supplementation. 11/11-Patient seen and examined in [facility]. On Levophed, nasal cannula supplementation, has left sided crackles. Patient is oliguric, 270 cc of urine overnight. 11/14-patient seen and examined. Urine output increasing, 1700 cc per day. Started Lasix 40 IV daily, bicarb q.i.d.. Hold of IV fluids. 11/15-patient seen and examined. Upper and lower extremity appearing swollen, urine output 4000 in 24 hours, continue Lasix daily. WBC downtrending to 16. BUN/creatinine downtrending. 11/16-patient seen and examined, on 3 L NC. Urine output 2525cc, WBC downtrending to 15, respiratory culture growing Annika. Continue bicarb and Lasix. Creatinine downtrending. 11/17-patient seen and examined, Crowell catheter discontinued. On 2 L NC. Urine output 2500. WBC trending down to 14.8. Creatinine trending down Objective vital signs Vital Sign Date Time Temp Pulse Resp B/P (MAP) Pulse Ox O2 Delivery O2 Flow Rate FiO2 11/17/24 10:13 95 18 98 11/17/24 10:07 Nasal Cannula* 1 24 11/17/24 09:07 119/81 11/17/24 09:00 98.0 98.0 Total Intake and Output 11/16/24 11/16/24 11/17/24 15:00 23:00 07:00 Intake Total 100 ml 950 ml 435 ml Output Total 1000 ml 1500 ml Balance 100 ml -50 ml -1065 ml medications Current Medications Medications Dose Ordered Sig/Denins Route Start Time Stop Time Status Last Admin Dose Admin Ondansetron HCl 4 mg Q4HP PRN IV 11/10/24 09:45 Vancomycin HCl 0 ml @ 0 mls/hr UD IV 11/10/24 10:15 Multivitamins/ Minerals 1 tab DAILY PO 11/10/24 10:15 11/17/24 09:07 1 TAB Thiamine HCl 100 mg DAILY PO 11/10/24 10:15 11/17/24 09:07 100 MG Folic Acid 1 mg DAILY PO 11/10/24 10:15 11/17/24 09:07 1 MG Albuterol 2.5 mg Q4HWA [facility] 11/11/24 06:00 11/17/24 10:07 2.5 MG Ipratropium [place] 0.5 mg Q4HWA [facility] 11/11/24 06:00 11/17/24 10:07 0.5 MG Norepinephrine Bitartrate 250 ml @ 3.75 mls/hr Q24H IV 11/11/24 01:30 11/11/24 01:35 3.75 MLS/HR Pantoprazole Sodium 40 mg DAILY@0600 PO 11/12/24 06:00 11/17/24 05:41 40 MG Metoprolol Tartrate 12.5 mg BID PO 11/12/24 10:00 11/17/24 09:07 12.5 MG Meropenem 50 ml @ 17 mls/hr Q12HR IV 11/12/24 22:00 UNV Meropenem 50 ml @ 17 mls/hr Q12H IV 11/13/24 18:00 11/17/24 05:41 17 MLS/HR Apixaban 5 mg BID PO 11/13/24 22:00 11/17/24 09:08 5 MG Amiodarone HCl 200 mg Q12HR PO 11/14/24 10:00 11/17/24 09:07 200 MG Furosemide 40 mg DAILY IV 11/15/24 10:00 11/17/24 09:06 40 MG Sodium Bicarbonate 650 mg QID PO 11/14/24 18:00 11/17/24 05:41 650 MG Fluconazole 100 ml @ 100 mls/hr DAILY IV 11/16/24 10:00 11/17/24 09:05 100 MLS/HR Examination Patient lying in bed, in no acute distress General: Obese, palor, mucosae are moist Cardiovascular: Tachycardic and irregular S1 and S2. No murmurs, gallops or rubs. No JVD elevation. 1+ bilateral pitting edema Respiratory: Left-sided crackles heard on auscultation, saturating 94 on 2 L Abdomen: Soft, nontender, nondistended, normoactive bowel sounds, no rebound tenderness, no organomegaly, no masses Genitourinary: Crowell catheter draining slightly dark yellow urine MSK/skin: Mobilizes 4 limbs. Skin is dry and warm Neurological: No motor, no sensitive deficits, normal speech. Pupils are isocoric and reactive. Psych/Mental Status: A/Ox3 laboratory and microbiology Laboratory Tests 11/17/24 06:10 Test 11/17/24 06:10 Range/Units Serum Glucose 93 74-106 mg/dL Microbiology Date/Time Source Procedure Growth Status 11/14/24 09:32 Sputum Gram Stain - Final Complete 11/14/24 09:32 Respiratory Culture - Final Presumptive Annika albicans Complete 11/12/24 12:50 Blood Blood Culture - Preliminary NO GROWTH AFTER 72 HOURS OF INCUBATION. Resulted 11/10/24 18:02 Nose MRSA Screen - Final Complete 11/10/24 18:02 Urine - Crowell [place] Urine Culture - Final Complete Labs and/or images reviewed: Labs reviewed by me, Image(s) reviewed by me Problem List/Assessment/Plan Problem List/Assessment/Plan Acute kidney injury likely vasomotor in the setting of sepsis Oliguria secondary to above-resolving Hyperkalemia Hypotension requiring pressor support ALOC likely secondary to sepsis Sepsis due to pneumonia, Gram-positive and negative ? Fungal Atrial fibrillation with RVR Lactic acidosis Hypothyroidism Transaminitis likely alcoholic hepatitis Chronic alcoholic dependence Obesity Plan: BUN/creatinine trending down. Urine output increasing. Hold off IV fluids at this time. Continue Lasix 40 mg daily Discontinue sodium bicarbonate q.i.d. supplementation Sputum culture growing yeast-recommend bronchoscopy to rule out valley fever, recommend coccidial antibody testing Baseline creatinine unknown, abdominal ultrasound shows echogenicity is normal in kidneys DC Motrin, avoid NSAIDs given CORINA Blood cultures negative, sputum culture pending Recommend cooling measures Continue IV antibiotics and panculture Therapeutic Lovenox per Cardiology We will continue to monitor the patient Outpatient Nephrology follow up advised Crowell catheter DC Thank you for consulting Nephrology Plan discussed with patient, nurse in which all questions have been answered Case discussed with Dr. Nichole Addendum Patient seen and examined, plan discussed with resident. Agree with above, we will follow closely Plan discussed with: Patient Dietary Evaluation Review Recommendations by RD: Protein Supplementation Comments: 1) Consider changing from mechanical soft cardiac to mechanical soft hepatic 80g Pro diet 2) Initiate NutriHep qd 3) Encourage optimal PO intake 4) Refer to outpatient RD for weight management 5) Follow-up with cardiology, hepatology, and nephrology 6) Follow-up with school social worker r/t ETOH cesastion 7) Continue to monitor I&O, labs, and skin integrity Expected Outcomes/Goals: 1) appetite and labs to improve 2) f/u in 3-5 days LOKI MASON Nov 17, 2024 10:47 NATHALIE NICHOLE MD Nov 17, 2024 12:53
--- NOTE | 2024-11-17 11:16 | DVHPNRES ---
Progress Note Date Seen: Nov 17, 2024 Resident Creating Document: SHARYN YI RESIDENT Medical Necessity Reason Pt with a Central, PICC or Fol: No Reason for crowell catheter: Strict I&O Subjective Review of Systems Patient was seen and examined on the bedside. He is alert and oriented x3 and on nasal cannula 1 L saturating 93%. Patient is afebrile, urine output significantly increased after adding IV Lasix 40 mg daily, negative balance and BUN/creatinine dropped to 61/1.27. Mentioned feeling better. Recommended physical therapy, getting out of the bed to the chair. Family is on the bedside. Discussed with the family about the patient's current condition and also discharge plan. Possible discharge to home tomorrow. Objective vital signs Vital Sign Date Time Temp Pulse Resp B/P (MAP) Pulse Ox O2 Delivery O2 Flow Rate FiO2 11/17/24 10:13 95 18 98 11/17/24 10:07 Nasal Cannula* 1 24 11/17/24 09:07 119/81 11/17/24 09:00 98.0 98.0 Total Intake and Output 11/16/24 11/16/24 11/17/24 15:00 23:00 07:00 Intake Total 100 ml 950 ml 435 ml Output Total 1000 ml 1500 ml Balance 100 ml -50 ml -1065 ml medications Current Medications Medications Dose Ordered Sig/Dennis Route Start Time Stop Time Status Last Admin Dose Admin Ondansetron HCl 4 mg Q4HP PRN IV 11/10/24 09:45 Vancomycin HCl 0 ml @ 0 mls/hr UD IV 11/10/24 10:15 Multivitamins/ Minerals 1 tab DAILY PO 11/10/24 10:15 11/17/24 09:07 1 TAB Thiamine HCl 100 mg DAILY PO 11/10/24 10:15 11/17/24 09:07 100 MG Folic Acid 1 mg DAILY PO 11/10/24 10:15 11/17/24 09:07 1 MG Albuterol 2.5 mg Q4HWA NEB 11/11/24 06:00 11/17/24 10:07 2.5 MG Ipratropium [place] 0.5 mg Q4HWA NEB 11/11/24 06:00 11/17/24 10:07 0.5 MG Norepinephrine Bitartrate 250 ml @ 3.75 mls/hr Q24H IV 11/11/24 01:30 11/11/24 01:35 3.75 MLS/HR Pantoprazole Sodium 40 mg DAILY@0600 PO 11/12/24 06:00 11/17/24 05:41 40 MG Metoprolol Tartrate 12.5 mg BID PO 11/12/24 10:00 11/17/24 09:07 12.5 MG Meropenem 50 ml @ 17 mls/hr Q12HR IV 11/12/24 22:00 UNV Meropenem 50 ml @ 17 mls/hr Q12H IV 11/13/24 18:00 11/17/24 05:41 17 MLS/HR Apixaban 5 mg BID PO 11/13/24 22:00 11/17/24 09:08 5 MG Amiodarone HCl 200 mg Q12HR PO 11/14/24 10:00 11/17/24 09:07 200 MG Furosemide 40 mg DAILY IV 11/15/24 10:00 11/17/24 09:06 40 MG Sodium Bicarbonate 650 mg QID PO 11/14/24 18:00 11/17/24 05:41 650 MG Fluconazole 100 ml @ 100 mls/hr DAILY IV 11/16/24 10:00 11/17/24 09:05 100 MLS/HR Examination Physical examination: General Appearance: Alert, Oriented X3, Cooperative, mild distress. HEENT: Atraumatic, PERRLA, EOMI, Mucous membrane moist/pink Respiratory: Left sided slightly decreased breath sound and ronchi. Cardiovascular: Irregular rate, Normal S1, Normal S2, No murmurs, no chest wall tenderness Abdominal: Normal bowel sounds, Soft, No tenderness, No hepatospenomegaly, No masses Extremities: Trace pedal edema, No clubbing, No cyanosis, Normal pulses, No tenderness/swelling Skin: No rashes, No breakdown, No significant lesion Neuro: Normal speech, Strength at 5/5 X4 ext, Normal tone, Sensation intact, Cranial nerves 3-12 NL, Reflexes 2+ Psych/Mental Status: Mental status NL, Mood N laboratory and microbiology Laboratory Tests 11/17/24 06:10 Test 11/17/24 06:10 Range/Units Serum Glucose 93 74-106 mg/dL Microbiology Date/Time Source Procedure Growth Status 11/14/24 09:32 Sputum Gram Stain - Final Complete 11/14/24 09:32 Respiratory Culture - Final Presumptive Annika albicans Complete 11/12/24 12:50 Blood Blood Culture - Preliminary NO GROWTH AFTER 72 HOURS OF INCUBATION. Resulted 11/10/24 18:02 Nose MRSA Screen - Final Complete 11/10/24 18:02 Urine - Crowell Port Urine Culture - Final Complete Labs and/or images reviewed: Labs reviewed by me, Image(s) reviewed by me Problem List/Assessment/Plan Problem List/Assessment/Plan NEURO: Acute metabolic encephalopathy likely due to sepsis; resolved CARDIOVASCULAR: Septic Shock secondary to pneumonia Atrial fibrillation with RVR and secondary hypercoagulable state NSTEMI type 2 likely secondary to above - initial EKG revealed AFib with RVR - Troponin trends are 109>104>92 - cardiology on board - [id number]- VASc score 3 and HAS BLED score 2 - Metoprolol 12.5 mg p.o. b.i.d. and amiodarone 200 mg p.o. b.i.d. - Apixaban 5 mg bid; was on therapeutic dose of enoxaparin PULMONARY: Acute hypoxic respiratory failure Possible aspiration pneumonia Possible gram positive/Gram-negative pneumonia - CT chest showed left lower lobe consolidation, suggestive of infectious process - chest x-ray on 0 11/12 showed left-sided consolidation, worse than the previous x-ray - Medneb with ipratropium and albuterol q.4 hours - IV meropenem 500 mg q.12 hours , IV vancomycin as per pharmacy and IV Diflucan 200 mg daily - pulmonology on board GASTROINTESTINAL: Hyperbilirubinemia with transaminitis likely due to sepsis Coagulopathy likely due to sepsis Mildly elevated lipase GENITOURINARY: CORINA secondary to hemodynamically mediated/VMN improved - FENa 0.1% likely pre renal - IV Lasix 40 mg daily - nephrology on board - Avoid nephrotoxic medication - strict I&O METABOLIC: Obesity class 1, BMI 34.7 kg/m2 Moderate protein calorie malnutrition, albumin 2.8 INFECTIOUS DISEASE: Bacteremia Possible aspiration pneumonia Possible gram positive/Gram-negative pneumonia Sepsis with septic shock likely due to above Lactic acidosis likely due to sepsis - CT chest showed left lower lobe consolidation, suggestive of infectious process - Medneb with ipratropium and albuterol q.4 hours - IV Meropenem 500 g q.12 hours and IV vancomycin as per pharmacy and IV fluconazole 200 mg daily. DIET: Cardiac diet DVT prophylax: Apixaban GI prophylaxis: Protonix LINES/DRAINS/ACCESS: IV access: Peripheral line placed on 11/10/24 Crowell catheter: placed on 11/10/24 Goals of care discussed with the patient for 20 minutes; full code. Case discussed with Dr. Maldonado Plan discussed with: Patient, Other () My Orders My Orders Orders - SHARYN YI Procedure Category Date Status Time Chest Portable XY 11/17/24 Taken 06:44 Dietary Evaluation Review Recommendations by RD: Protein Supplementation Comments: 1) Consider changing from mechanical soft cardiac to mechanical soft hepatic 80g Pro diet 2) Initiate NutriHep qd 3) Encourage optimal PO intake 4) Refer to outpatient RD for weight management 5) Follow-up with cardiology, hepatology, and nephrology 6) Follow-up with psych social worker r/t ETOH cesastion 7) Continue to monitor I&O, labs, and skin integrity Expected Outcomes/Goals: 1) appetite and labs to improve 2) f/u in 3-5 days Addendum Addendum Addendum I was physically present for the lowery portions of the service provided to patient by THE RESIDENT. I have reviewed the documentation, discussed the case with resident and agree with the resident's documentation except as noted. Also the patient's clinical case was discussed with the patient's nurse. This medical document was created using an electronic medical record system with computerized dictation system. Although this document has been carefully reviewed, there might still be some phonetic and typographical errors. These areas are purely typographical due to imperfections of the software programs, and do not reflect any compromise in the patient's medical care. Late signature. Date of Service: Nov 17, 2024 Billing Provider: YOLETTE MALDONADO MD Common Visit Codes: 81244-[id number] INP/OBS CARE(HIGH) Secondary Visit Codes: 55514-[id number] CARE PLAN 30 MINUTES (20 minutes) SHARYN YI Nov 17, 2024 11:16 YOLETTE MALDONADO MD Nov 18, 2024 04:52
[2024-11-17] MEDS: VANCOMYCIN 1GM/200ML PM 200 ML IV ONE (16:11)
--- NOTE | 2024-11-17 23:45 | DVHPN2 ---
Progress Note - Dictate Date Seen: Nov 17, 2024 Medical Necessity Reason Pt with a Central, PICC or Fol: No Reason for crowell catheter: Strict I&O Subjective Patient seen and examined at bedside. Remains on supplemental oxygen Overnight events reviewed. vital signs Vital Sign Date Time Temp Pulse Resp B/P (MAP) Pulse Ox O2 Delivery O2 Flow Rate FiO2 11/17/24 22:13 91 16 99 11/17/24 22:07 Nasal Cannula* 1 24 11/17/24 21:30 122/79 11/17/24 21:00 98.6 98.6 Total Intake and Output 11/16/24 11/16/24 11/17/24 15:00 23:00 07:00 Intake Total 100 ml 950 ml 435 ml Output Total 1000 ml 1500 ml Balance 100 ml -50 ml -1065 ml medications Current Medications Medications Dose Ordered Sig/Dennis Route Start Time Stop Time Status Last Admin Dose Admin Ondansetron HCl 4 mg Q4HP PRN IV 11/10/24 09:45 Vancomycin HCl 0 ml @ 0 mls/hr UD IV 11/10/24 10:15 Multivitamins/ Minerals 1 tab DAILY PO 11/10/24 10:15 11/17/24 09:07 1 TAB Thiamine HCl 100 mg DAILY PO 11/10/24 10:15 11/17/24 09:07 100 MG Folic Acid 1 mg DAILY PO 11/10/24 10:15 11/17/24 09:07 1 MG Albuterol 2.[address] [facility] 11/11/24 06:00 11/17/24 22:07 2.5 MG Ipratropium [place] 0.[address] [facility] 11/11/24 06:00 11/17/24 22:07 0.5 MG Pantoprazole Sodium 40 mg DAILY@0600 PO 11/12/24 06:00 11/17/24 05:41 40 MG Metoprolol Tartrate 12.5 mg BID PO 11/12/24 10:00 11/17/24 21:28 12.5 MG Meropenem 50 ml @ 17 mls/hr Q12HR IV 11/12/24 22:00 UNV Meropenem 50 ml @ 17 mls/hr Q12H IV 11/13/24 18:00 11/17/24 17:55 17 MLS/HR Apixaban 5 mg BID PO 11/13/24 22:00 11/17/24 21:28 5 MG Amiodarone HCl 200 mg Q12HR PO 11/14/24 10:00 11/17/24 21:28 200 MG Furosemide 40 mg DAILY IV 11/15/24 10:00 11/17/24 09:06 40 MG Fluconazole 100 ml @ 100 mls/hr DAILY IV 11/16/24 10:00 11/17/24 09:05 100 MLS/HR objective Gen.: Patient lying in bed in no apparent distress. On supplemental oxygen. Head: Normocephalic, atraumatic. Eyes: EOMI/PERRLA. Ears: Normal hearing. Normal anatomy. Neck/trachea: Trachea midline, supple. Nose: Normal external anatomy. Mouth: Moist mucous membranes. Chest: Decreased air entry bilaterally. No wheezing or rhonchi. Cardiovascular: Positive S1, positive S2. Regular rate and rhythm. Abdomen: Positive bowel sounds in all 4 quadrants. Soft, non-tender, non- distended. : Deferred. Rectal: Deferred. Skin: Warm, dry. Intact. Extremities: 2+ radial pulses bilaterally. No lower extremity edema. Neuro: Awake, alert, oriented x3. No gross motor or sensory deficits. Cranial nerves II through XII intact. Gait not assessed. laboratory and microbiology Laboratory Tests 11/17/24 06:10 Test 11/17/24 06:10 Range/Units Serum Glucose 93 74-106 mg/dL Assessment/Plan Impression: Acute hypoxic respiratory failure Dependence on supplemental oxygen Sepsis Pneumonia Lactic acidosis Chronic atrial fibrillation Acute kidney injury Events: Remains on supplemental oxygen, 2 LPM NC Taper O2 as tolerated Stable O2 requirements Head of bed elevation Aspiration precautions Amiodarone PO. Continue bronchodilators Continue antibiotics WBC trending down, 14.8 K. Sputum cultures grew yeast. Continue antifungal Incentive spirometry Diurese with Lasix Monitor renal function Monitor electrolytes. Supplement as necessary. Monitor ins and outs. Maintain euvolemia Continue PT. Protonix for GI prophylaxis Lovenox for DVT prophylaxis Disposition per hospitalist. Labs and imaging reviewed. Rest of plan as noted below. Plan: Supplemental oxygen Titrate to keep O2 sats above 92%. Remains off pressors, hemodynamically stable. Continue antibiotics for pneumonia Continue bronchodilators Vitamin supplementation Monitor lactic acid level Chronic AFib - Amiodarone PO BID. Cardiology recs appreciated. Diurese with Lasix Monitor renal function d/t CORINA. Follow up Nephrology recs Monitor electrolytes. Supplement as necessary. Monitor ins and outs. GI/DVT prophylaxis. Prognosis: Guarded given patient's multiple co-morbidities. Rest of plan per hospitalist and other consultants. Thank you Dr. Gonsales for allowing me to participate in this patient's care. Further recommendations will depend on the patient's clinical course. Please do not hesitate to contact me if you have any questions or concerns. This medical document was created using an electronic medical record system with Pressly dictation system. Although these documentations are being carefully reviewed, there may still be some phonetic and typographical changes. The errors are purely typographical, due to imperfection on the software program, and do not reflect any compromise in the patient's medical care. Dietary Evaluation Review Recommendations by RD: Protein Supplementation Comments: 1) Consider changing from mechanical soft cardiac to mechanical soft hepatic 80g Pro diet 2) Initiate NutriHep qd 3) Encourage optimal PO intake 4) Refer to outpatient RD for weight management 5) Follow-up with cardiology, hepatology, and nephrology 6) Follow-up with social services coordinator r/t ETOH cesastion 7) Continue to monitor I&O, labs, and skin integrity Expected Outcomes/Goals: 1) appetite and labs to improve 2) f/u in 3-5 days Plan discussed with: Patient, Other (NICOLAS Sheikh) MIGUEL DORAN MD Nov 17, 2024 23:45
[2024-11-18] VITALS (15 sets, daily range): BP systolic 117–139; BP diastolic 66–86; PULSE 53–112; RESP 17–19; TEMP 97.9–98.6; O2SAT 92–100
[2024-11-18 07:34] LABS: Anion Gap 8 (5-15); Carbon Dioxide 26 mmol/L (20-31); Chloride 107 mmol/L (98-107); Potassium 4.2 mmol/L (3.5-5.1); Sodium 141 mmol/L (136-145)
[2024-11-18 07:40] LABS: BUN/Creatinine Ratio 41.4 (10.0-20.0); Glucose 104 mg/dL (74-106)
[2024-11-18 07:41] LABS: Hematocrit 35.3 % (41.0-53.0); Hemoglobin 11.8 g/dL (13.5-17.5); Mean Corpuscular Hemoglobin 29.1 pg (28.0-32.0); Mean Corpuscular Volume 87.4 fL (80.0-100.0); Nucleated Red Blood Cells % 0.1 %
[2024-11-18 07:42] LABS: Blood Urea Nitrogen 46 mg/dL (9-23); Calcium 8.1 mg/dL (8.7-10.4)
--- NOTE | 2024-11-18 09:47 | ECG ---
[facility] Test Date: 2024-11-18 Test Time: 09:25:00 Pat Name: HOLLI HOSKINS Department: Room: 0218T Gender: M [employer] Clerk: Aguilar VALENZUELA : 1945 Requested By: SHARYN YI Order Number: [id number] Reading MD: Napoleon Brooks Measurements Intervals [place] Rate: 90 P: 0 NH: 0 QRS: 33 QRSD: 146 T: 21 QT: 395 QTc: 484 Interpretive Statements Atrial fibrillation Right bundle branch block Electronically Signed On 11-21-2024 13:24:30 PDT by Napoleon Brooks Please click the below link to view image of tracing.
[2024-11-18] MEDS: levoFLOXacin 250 MG TAB PO SCH (09:56)
[2024-11-18] MEDS: FLUCONAZOLE 100 MG TAB PO SCH (09:56)
--- NOTE | 2024-11-18 12:14 | DVHPN2 ---
Progress Note Date Seen: Nov 18, 2024 Resident Creating Document: LOKI MASON RESIDENT Medical Necessity Reason Pt with a Central, PICC or Fol: No Reason for crowell catheter: Strict I&O Subjective Review of Systems This is a 79-year-old male with atrial fibrillation, hypertension, chronic alcohol dependence who presented to the ER for the evaluation of altered level of consciousness and shortness of breaths associated with cough. Per chart review, patient was confused. On my evaluation, patient is A&O x2, oriented to name and place. No family at bedside. On arrival, EKG showed AFib with RVR. Troponins 109 and downtrending. Nephrology consulted for CORINA Overnight patient has febrile T-max 100.8 F, hypotensive requiring Levophed at 4 mcg/hour. He is also requiring 2 L oxygen supplementation. 11/11-Patient seen and examined in [facility]. On Levophed, nasal cannula supplementation, has left sided crackles. Patient is oliguric, 270 cc of urine overnight. 11/14-patient seen and examined. Urine output increasing, 1700 cc per day. Started Lasix 40 IV daily, bicarb q.i.d.. Hold of IV fluids. 11/15-patient seen and examined. Upper and lower extremity appearing swollen, urine output 4000 in 24 hours, continue Lasix daily. WBC downtrending to 16. BUN/creatinine downtrending. 11/16-patient seen and examined, on 3 L NC. Urine output 2525cc, WBC downtrending to 15, respiratory culture growing Annika. Continue bicarb and Lasix. Creatinine downtrending. 11/17-patient seen and examined, Crowell catheter discontinued. On 2 L NC. Urine output 2500. WBC trending down to 14.8. Creatinine trending down 11/18-patient examined. Urine output 900 cc. Antibiotics switched to p.o.. WBC downtrending, creatinine downtrending. We will sign off. Objective vital signs Vital Sign Date Time Temp Pulse Resp B/P (MAP) Pulse Ox O2 Delivery O2 Flow Rate FiO2 11/18/24 10:28 87 18 98 11/18/24 10:22 Room Air* 0 21 11/18/24 09:58 122/73 11/18/24 08:46 97.9 97.9 Total Intake and Output 11/17/24 11/17/2425 15:00 23:00 07:00 Intake Total 850 ml 600 ml Output Total 700 ml 1200 ml Balance 150 ml -600 ml medications Current Medications Medications Dose Ordered Sig/Dennis Route Start Time Stop Time Status Last Admin Dose Admin Ondansetron HCl 4 mg Q4HP PRN IV 11/10/24 09:45 Multivitamins/ Minerals 1 tab DAILY PO 11/10/24 10:15 11/18/24 09:56 1 TAB Thiamine HCl 100 mg DAILY PO 11/10/24 10:15 11/18/24 09:57 100 MG Folic Acid 1 mg DAILY PO 11/10/24 10:15 11/18/24 09:55 1 MG Albuterol 2.5 mg Q4HWA [facility] 11/11/24 06:00 11/18/24 10:22 2.5 MG Ipratropium [place] 0.5 mg Q4HWA [facility] 11/11/24 06:00 11/18/24 10:22 0.5 MG Pantoprazole Sodium 40 mg DAILY@0600 PO 11/12/24 06:00 11/18/24 05:33 40 MG Metoprolol Tartrate 12.5 mg BID PO 11/12/24 10:00 11/18/24 09:56 12.5 MG Meropenem 50 ml @ 17 mls/hr Q12HR IV 11/12/24 22:00 UNV Apixaban 5 mg BID PO 11/13/24 22:00 11/18/24 09:57 5 MG Amiodarone HCl 200 mg Q12HR PO 11/14/24 10:00 11/18/24 09:57 200 MG Furosemide 40 mg DAILY IV 11/15/24 10:00 11/18/24 09:58 40 MG Levofloxacin 750 mg DAILY PO 11/18/24 10:00 11/18/24 09:56 750 MG Fluconazole 200 mg DAILY PO 11/18/24 10:00 11/18/24 09:56 200 MG Examination Patient lying in bed, in no acute distress General: Obese, palor, mucosae are moist Cardiovascular: Tachycardic and irregular S1 and S2. No murmurs, gallops or rubs. No JVD elevation. Resolving 1+ bilateral pitting edema Respiratory: Left-sided crackles heard on auscultation, saturating 94 on 2 L Abdomen: Soft, nontender, nondistended, normoactive bowel sounds, no rebound tenderness, no organomegaly, no masses Genitourinary: Crowell catheter draining slightly dark yellow urine MSK/skin: Mobilizes 4 limbs. Skin is dry and warm Neurological: No motor, no sensitive deficits, normal speech. Pupils are isocoric and reactive. Psych/Mental Status: A/Ox3 laboratory and microbiology Laboratory Tests 11/18/24 05:40 Test 11/18/24 05:40 Range/Units Serum Glucose 104 74-106 mg/dL Microbiology Date/Time Source Procedure Growth Status 11/14/24 09:32 Sputum Gram Stain - Final Complete 11/14/24 09:32 Respiratory Culture - Final Presumptive Annika albicans Complete 11/12/24 12:50 Blood Blood Culture - Final NO GROWTH AFTER 5 DAYS OF INCUBATION. Complete 11/10/24 18:02 Nose MRSA Screen - Final Complete 11/10/24 18:02 Urine - Crowell [place] Urine Culture - Final Complete Labs and/or images reviewed: Labs reviewed by me, Image(s) reviewed by me Problem List/Assessment/Plan Problem List/Assessment/Plan Acute kidney injury likely vasomotor in the setting of sepsis Oliguria secondary to above-resolving Hyperkalemia Hypotension requiring pressor support ALOC likely secondary to sepsis Sepsis due to pneumonia, Gram-positive and negative ? Fungal Atrial fibrillation with RVR Lactic acidosis Hypothyroidism Transaminitis likely alcoholic hepatitis Chronic alcoholic dependence Obesity Plan: BUN/creatinine trending down. GFR improving, Urine output stable. Switch Lasix 40 mg IV to 40 mg p.o. daily Discontinue sodium bicarbonate q.i.d. supplementation Sputum culture growing yeast-recommend bronchoscopy to rule out valley fever, recommend coccidial antibody testing Baseline creatinine unknown, abdominal ultrasound shows echogenicity is normal in kidneys DC Motrin, avoid NSAIDs given CORINA Blood cultures negative, sputum culture pending Recommend cooling measures Continue antibiotics and panculture We will continue to follow up Outpatient Nephrology follow up advised Crowell catheter DC Thank you for consulting Nephrology Plan discussed with patient, nurse in which all questions have been answered Case discussed with Dr. Nichole Addendum Patient seen and examined, plan discussed with resident. Agree with above, we will sign off Plan discussed with: Patient Dietary Evaluation Review Recommendations by RD: Protein Supplementation Comments: 1) Consider changing from mechanical soft cardiac to mechanical soft hepatic 80g Pro diet 2) Initiate NutriHep qd 3) Encourage optimal PO intake 4) Refer to outpatient RD for weight management 5) Follow-up with cardiology, hepatology, and nephrology 6) Follow-up with geriatric social worker r/t ETOH cesastion 7) Continue to monitor I&O, labs, and skin integrity Expected Outcomes/Goals: 1) appetite and labs to improve 2) f/u in 3-5 days LOKI MASON Nov 18, 2024 12:14 NATHALIE NICHOLE MD Nov 18, 2024 20:18
--- NOTE | 2024-11-18 13:14 | DVHPN2 ---
Progress Note - Dictate Date Seen: Nov 18, 2024 Medical Necessity Reason Pt with a Central, PICC or Fol: No Reason for crowell catheter: Strict I&O vital signs Vital Sign Date Time Temp Pulse Resp B/P (MAP) Pulse Ox O2 Delivery O2 Flow Rate FiO2 11/18/24 10:56 53 132/72 11/18/24 10:28 18 98 11/18/24 10:22 Room Air* 0 21 11/18/24 08:46 97.9 97.9 Total Intake and Output 11/17/24 11/17/24 11/18/24 15:00 23:00 07:00 Intake Total 850 ml 600 ml Output Total 700 ml 1200 ml Balance 150 ml -600 ml medications Current Medications Medications Dose Ordered Sig/Dennis Route Start Time Stop Time Status Last Admin Dose Admin Ondansetron HCl 4 mg Q4HP PRN IV 11/10/24 09:45 Multivitamins/ Minerals 1 tab DAILY PO 11/10/24 10:15 11/18/24 09:56 1 TAB Thiamine HCl 100 mg DAILY PO 11/10/24 10:15 11/18/24 09:57 100 MG Folic Acid 1 mg DAILY PO 11/10/24 10:15 11/18/24 09:55 1 MG Albuterol 2.[address] [facility] 11/11/24 06:00 11/18/24 10:22 2.5 MG Ipratropium [place] 0.[address] [facility] 11/11/24 06:00 11/18/24 10:22 0.5 MG Pantoprazole Sodium 40 mg DAILY@0600 PO 11/12/24 06:00 11/18/24 05:33 40 MG Metoprolol Tartrate 12.5 mg BID PO 11/12/24 10:00 11/18/24 09:56 12.5 MG Meropenem 50 ml @ 17 mls/hr Q12HR IV 11/12/24 22:00 UNV Apixaban 5 mg BID PO 11/13/24 22:00 11/18/24 09:57 5 MG Amiodarone HCl 200 mg Q12HR PO 11/14/24 10:00 11/18/24 09:57 200 MG Furosemide 40 mg DAILY IV 11/15/24 10:00 11/18/24 09:58 40 MG Levofloxacin 750 mg DAILY PO 11/18/24 10:00 11/18/24 09:56 750 MG Fluconazole 200 mg DAILY PO 11/18/24 10:00 11/18/24 09:56 200 MG laboratory and microbiology Laboratory Tests 11/18/24 05:40 Test 11/18/24 05:40 Range/Units Serum Glucose 104 74-106 mg/dL Assessment/Plan Impression: Acute hypoxic respiratory failure Dependence on supplemental oxygen Sepsis Pneumonia Lactic acidosis Chronic atrial fibrillation Acute kidney injury Events: on room air vs stable Head of bed elevation Aspiration precautions Amiodarone PO. Continue bronchodilators Continue antibiotics WBC trending down, 14.8 K. Sputum cultures grew yeast. Continue antifungal Incentive spirometry Diurese with Lasix Monitor renal function Monitor electrolytes. Supplement as necessary. Monitor ins and outs. Maintain euvolemia Continue PT. Protonix for GI prophylaxis Lovenox for DVT prophylaxis Dietary Evaluation Review Recommendations by RD: Protein Supplementation Comments: 1) Consider changing from mechanical soft cardiac to mechanical soft hepatic 80g Pro diet 2) Initiate NutriHep qd 3) Encourage optimal PO intake 4) Refer to outpatient RD for weight management 5) Follow-up with cardiology, hepatology, and nephrology 6) Follow-up with long term care social worker r/t ETOH cesastion 7) Continue to monitor I&O, labs, and skin integrity Expected Outcomes/Goals: 1) appetite and labs to improve 2) f/u in 3-5 days Plan discussed with: Patient DENZEL ZAPATA MD Nov 18, 2024 13:14
--- NOTE | 2024-11-18 16:45 | DVHPNRES ---
Progress Note Date Seen: Nov 18, 2024 Resident Creating Document: SHARYN YI RESIDENT Medical Necessity Reason Pt with a Central, PICC or Fol: No Reason for crowell catheter: Strict I&O Subjective Review of Systems Patient was seen and examined on the bedside. He is alert and oriented x3 and on nasal cannula 1 L saturating 93%. Patient is afebrile, urine output significantly increased, BUN/creatinine came back to normal. Mentioned feeling better. Physical therapy recommended SNF for rehab. Needs maximum assistance during standing, get out of the bed and feeling dizzy when standing. Consulted high school social studies tutor for regarding SNF placement, when bed is available. Discontinued IV antibiotics and started levofloxacin 750 mg p.o. daily and also converted IV Lasix to p.o. Lasix 40 mg daily. Objective vital signs Vital Sign Date Time Temp Pulse Resp B/P (MAP) Pulse Ox O2 Delivery O2 Flow Rate FiO2 11/18/24 14:14 100 18 100 11/18/24 14:08 Nasal Cannula 1.0 11/18/24 14:08 24 11/18/24 13:13 98.1 135/86 (102) 98.1 Total Intake and Output 11/17/24 11/17/24 11/18/24 15:00 23:00 07:00 Intake Total 850 ml 600 ml Output Total 700 ml 1200 ml Balance 150 ml -600 ml medications Current Medications Medications Dose Ordered Sig/Dennis Route Start Time Stop Time Status Last Admin Dose Admin Ondansetron HCl 4 mg Q4HP PRN IV 11/10/24 09:45 Multivitamins/ Minerals 1 tab DAILY PO 11/10/24 10:15 11/18/24 09:56 1 TAB Thiamine HCl 100 mg DAILY PO 11/10/24 10:15 11/18/24 09:57 100 MG Folic Acid 1 mg DAILY PO 11/10/24 10:15 11/18/24 09:55 1 MG Albuterol 2.5 mg Q4HWA [facility] 11/11/24 06:00 11/18/24 14:08 2.5 MG Ipratropium [place] 0.5 mg Q4HWA [facility] 11/11/24 06:00 11/18/24 14:08 0.5 MG Pantoprazole Sodium 40 mg DAILY@0600 PO 11/12/24 06:00 11/18/24 05:33 40 MG Metoprolol Tartrate 12.5 mg BID PO 11/12/24 10:00 11/18/24 09:56 12.5 MG Meropenem 50 ml @ 17 mls/hr Q12HR IV 11/12/24 22:00 UNV Apixaban 5 mg BID PO 11/13/24 22:00 11/18/24 09:57 5 MG Amiodarone HCl 200 mg Q12HR PO 11/14/24 10:00 11/18/24 09:57 200 MG Levofloxacin 750 mg DAILY PO 11/18/24 10:00 11/18/24 09:56 750 MG Fluconazole 200 mg DAILY PO 11/18/24 10:00 11/18/24 09:56 200 MG Furosemide 40 mg DAILY PO 11/19/24 10:00 UNV Furosemide 40 mg DAILY PO 11/19/24 10:00 Examination Physical examination: General Appearance: Alert, Oriented X3, Cooperative, mild distress. HEENT: Atraumatic, PERRLA, EOMI, Mucous membrane moist/pink Respiratory: Left sided slightly decreased breath sound and ronchi. Cardiovascular: Irregular rate, Normal S1, Normal S2, No murmurs, no chest wall tenderness Abdominal: Normal bowel sounds, Soft, No tenderness, No hepatospenomegaly, No masses Extremities: Trace pedal edema, No clubbing, No cyanosis, Normal pulses, No tenderness/swelling Skin: No rashes, No breakdown, No significant lesion Neuro: Normal speech, Strength at 5/5 X4 ext, Normal tone, Sensation intact, Cranial nerves 3-12 NL, Reflexes 2+ Psych/Mental Status: Mental status NL, Mood N laboratory and microbiology Laboratory Tests 11/18/24 05:40 Test 11/18/24 05:40 Range/Units Serum Glucose 104 74-106 mg/dL Microbiology Date/Time Source Procedure Growth Status 11/14/24 09:32 Sputum Gram Stain - Final Complete 11/14/24 09:32 Respiratory Culture - Final Presumptive Annika albicans Complete 11/12/24 12:50 Blood Blood Culture - Final NO GROWTH AFTER 5 DAYS OF INCUBATION. Complete 11/10/24 18:02 Nose MRSA Screen - Final Complete 11/10/24 18:02 Urine - [place] Urine Culture - Final Complete Labs and/or images reviewed: Labs reviewed by me, Image(s) reviewed by me Problem List/Assessment/Plan Problem List/Assessment/Plan Assessment and plan: # Acute metabolic encephalopathy due to sepsis # Septic Shock secondary to pneumonia # Atrial fibrillation with RVR and secondary hypercoagulable state #NSTEMI type 2 likely secondary to above - initial EKG revealed AFib with RVR - Troponin trends are 109>104>92 - cardiology on board - [id number]- VASc score 3 and HAS BLED score 2 - Metoprolol 12.5 mg p.o. b.i.d. and amiodarone 200 mg p.o. b.i.d. - Apixaban 5 mg bid # Sepsis due to bacteremia in the setting of suspected aspiration pneumonia/Gram positive/Gram-negative pneumonia # Sepsis with septic shock likely due to above # Bacteremia likely due to sepsis # Lactic acidosis due to sepsis - CT chest showed left lower lobe consolidation, suggestive of infectious process - chest x-ray on 5 showed left-sided consolidation, worse than the previous x-ray - Medneb with ipratropium and albuterol q.4 hours - IV meropenem 500 mg q.12 hours , IV vancomycin as per pharmacy and IV Diflucan 200 mg daily - pulmonology on board - BiPAP p.r.n. # Hyperbilirubinemia with transaminitis likely due to sepsis # Coagulopathy likely due to sepsis # Mildly elevated lipase # CORINA secondary to hemodynamically mediated/VMN - FENa 0.1% likely pre renal - IV Lasix 40 mg daily - nephrology on board - Avoid nephrotoxic medications - strict I&O # Obesity class 1, BMI 34.7 kg/m2 # Moderate protein calorie malnutrition, albumin 2.8 DVT prophylax: Apixaban GI prophylaxis: Protonix Case discussed with Dr. Maldonado Plan discussed with: Patient, Other (RN) My Orders My Orders Orders - SHARYN YI RESIDENT Procedure Category Date Status Time Discontinue Tele MIKEY 11/18/24 In Process 06:47 Transfer Orders XFER 11/18/24 Transmitted 06:47 Levofloxacin Tablet PHA 11/18/24 In Process (Levaquin Tablet) 10:00 Fluconazole Tablet PHA 11/18/24 In Process (Diflucan Tablet) 10:00 * Life Support Technician CONS 11/18/24 Transmitted Consult * Life Support Technician CONS 11/18/24 Transmitted Consult Dietary Evaluation Review Recommendations by RD: Protein Supplementation Comments: 1) Consider changing from mechanical soft cardiac to mechanical soft hepatic 80g Pro diet 2) Initiate NutriHep qd 3) Encourage optimal PO intake 4) Refer to outpatient RD for weight management 5) Follow-up with cardiology, hepatology, and nephrology 6) Follow-up with high school social studies tutor r/t ETOH cesastion 7) Continue to monitor I&O, labs, and skin integrity Expected Outcomes/Goals: 1) appetite and labs to improve 2) f/u in 3-5 days Addendum Addendum Addendum I was physically present for the lowery portions of the service provided to patient by THE RESIDENT. I have reviewed the documentation, discussed the case with resident and agree with the resident's documentation except as noted. Also the patient's clinical case was discussed with the patient's nurse. This medical document was created using an electronic medical record system with computerized dictation system. Although this document has been carefully reviewed, there might still be some phonetic and typographical errors. These areas are purely typographical due to imperfections of the software programs, and do not reflect any compromise in the patient's medical care. Late signature. Date of Service: Nov 18, 2024 Billing Provider: YOLETTE MALDONADO MD Common Visit Codes: [id number] INP/OBS CARE(HIGH) SHARYN YI RESIDENT Nov 18, 2024 16:45 YOLETTE MALDONADO MD Nov 19, 2024 14:10
[2024-11-19] VITALS (15 sets, daily range): BP systolic 113–130; BP diastolic 67–83; PULSE 61–95; RESP 16–20; TEMP 97.8–98.6; O2SAT 93–100
[2024-11-19 07:35] LABS: Hematocrit 34.0 % (41.0-53.0); Hemoglobin 11.3 g/dL (13.5-17.5); Mean Corpuscular Hemoglobin 29.4 pg (28.0-32.0); Mean Corpuscular Volume 88.4 fL (80.0-100.0)
[2024-11-19 07:46] LABS: Potassium 4.4 mmol/L (3.5-5.1); Sodium 142 mmol/L (136-145)
[2024-11-19 07:47] LABS: Anion Gap 9 (5-15); Calcium 8.2 mg/dL (8.7-10.4); Carbon Dioxide 26 mmol/L (20-31); Chloride 107 mmol/L (98-107)
[2024-11-19 07:52] LABS: BUN/Creatinine Ratio 38.5 (10.0-20.0); Glucose 106 mg/dL (74-106)
[2024-11-19 07:55] LABS: Blood Urea Nitrogen 42 mg/dL (9-23)
[2024-11-19 08:31] LABS: Total Cells Counted 100.0 (100)
[2024-11-19] MEDS: FUROSEMIDE 40 MG TAB PO SCH (09:51)
[2024-11-19] MEDS ORDERED: FUROSEMIDE 20 MG TAB PO SCH (10:00)
--- NOTE | 2024-11-19 12:57 | DVHPN2 ---
Progress Note - Dictate Date Seen: Nov 19, 2024 Medical Necessity Reason Pt with a Central, PICC or Fol: No Reason for crowell catheter: Strict I&O vital signs Vital Sign Date Time Temp Pulse Resp B/P (MAP) Pulse Ox O2 Delivery O2 Flow Rate FiO2 11/19/24 12:47 98.1 72 19 126/82 (97) 94 98.1 11/19/24 10:00 Nasal Cannula* 2 28 Total Intake and Output 11/18/24 11/18/24 11/19/24 15:00 23:00 07:00 Intake Total 250 ml 600 ml Output Total 1725 ml 715 ml Balance -1475 ml -115 ml medications Current Medications Medications Dose Ordered Sig/Dennis Route Start Time Stop Time Status Last Admin Dose Admin Ondansetron HCl 4 mg Q4HP PRN IV 11/10/24 09:45 Multivitamins/ Minerals 1 tab DAILY PO 11/10/24 10:15 11/19/24 09:52 1 TAB Thiamine HCl 100 mg DAILY PO 11/10/24 10:15 11/19/24 09:52 100 MG Folic Acid 1 mg DAILY PO 11/10/24 10:15 11/19/24 09:51 1 MG Albuterol 2.5 mg Q4HWA [facility] 11/11/24 06:00 11/19/24 09:25 2.5 MG Ipratropium [place] 0.5 mg Q4HWA [facility] 11/11/24 06:00 11/19/24 09:26 0.5 MG Pantoprazole Sodium 40 mg DAILY@0600 PO 11/12/24 06:00 11/19/24 05:26 40 MG Metoprolol Tartrate 12.5 mg BID PO 11/12/24 10:00 11/19/24 09:52 12.5 MG Meropenem 50 ml @ 17 mls/hr Q12HR IV 11/12/24 22:00 UNV Apixaban 5 mg BID PO 11/13/24 22:00 11/19/24 09:51 5 MG Amiodarone HCl 200 mg Q12HR PO 11/14/24 10:00 11/19/24 09:51 200 MG Levofloxacin 750 mg DAILY PO 11/18/24 10:00 11/19/24 09:52 750 MG Fluconazole 200 mg DAILY PO 11/18/24 10:00 11/19/24 09:52 200 MG Furosemide 40 mg DAILY PO 11/19/24 10:00 UNV Furosemide 40 mg DAILY PO 11/19/24 10:00 11/19/24 09:51 40 MG laboratory and microbiology Laboratory Tests 11/19/24 06:24 Test 11/19/24 06:24 Range/Units Serum Glucose 106 74-106 mg/dL Assessment/Plan Impression: Acute hypoxic respiratory failure Dependence on supplemental oxygen Sepsis Pneumonia Lactic acidosis Chronic atrial fibrillation Acute kidney injury Events: Low oxygen requirements On 1 liter nasal cannula No distress Labs and imaging reviewed Management Continue bronchodilators Continue antibiotics WBC trending down, 14.8 K. Sputum cultures grew yeast. Continue antifungal Incentive spirometry Diurese with Lasix Monitor renal function Monitor electrolytes. Supplement as necessary. Monitor ins and outs. Maintain euvolemia Continue PT. Protonix for GI prophylaxis Lovenox for DVT prophylaxis Dietary Evaluation Review Recommendations by RD: Protein Supplementation Comments: 1) Consider changing from mechanical soft cardiac to mechanical soft hepatic 80g Pro diet 2) Initiate NutriHep qd 3) Encourage optimal PO intake 4) Refer to outpatient RD for weight management 5) Follow-up with cardiology, hepatology, and nephrology 6) Follow-up with social work program coordinator r/t ETOH cesastion 7) Continue to monitor I&O, labs, and skin integrity Expected Outcomes/Goals: 1) appetite and labs to improve 2) f/u in 3-5 days Plan discussed with: Patient DENZEL ZAPATA MD Nov 19, 2024 12:57
--- NOTE | 2024-11-19 15:39 | DVHPNRES ---
Progress Note Date Seen: Nov 19, 2024 Resident Creating Document: BRITTNEY PENNY RESIDENT Medical Necessity Reason Pt with a Central, PICC or Fol: No Reason for crowell catheter: Strict I&O Subjective Review of Systems This is a 79-year-old male patient who presents to the emergency room with chief complaint of altered level of mentation and shortness of breath. At the time of assessment, the patient is only alert to self and place and unable to answer any further questions. Attempted to call patient's , Gloria who is listed as next of kin, no answer. Information obtained from medical records and bedside RN. According to notes, the patient was initially brought in due to unusual behavior as well as altered level of mentation for approximately one week. Cardiology has been consulted at this time for atrial fibrillation with rapid ventricular response. Initial twelve lead electrocardiogram reveals atrial fibrillation with rapid ventricular rate. Initial troponin level of 109ng/L down trend thereafter. The patient denies any cardiac symptoms at time of assessment. Significant past medical history includes atrial fibrillation, hypertension, and alcohol abuse. Unable to confirm any other past medical history given that the patient is still confused at time of assessment. No family at bedside and unable to reach via telephone. Patient seen at bedside. Patient appears Comfortable and alert x3, he reports he is breathing better, and does not report any shortness of breath chest pain, nausea, vomiting, diarrhea, headaches, dizziness. Physical therapy recommended SNF for rehab. Objective vital signs Vital Sign Date Time Temp Pulse Resp B/P (MAP) Pulse Ox O2 Delivery O2 Flow Rate FiO2 11/19/24 14:30 61 18 100 11/19/24 14:24 Nasal Cannula 2.0 11/19/24 14:24 28 11/19/24 12:47 98.1 126/82 (97) 98.1 Total Intake and Output 11/18/24 11/18/24 11/19/24 15:00 23:00 07:00 Intake Total 250 ml 600 ml Output Total 1725 ml 715 ml Balance -1475 ml -115 ml medications Current Medications Medications Dose Ordered Sig/Dennis Route Start Time Stop Time Status Last Admin Dose Admin Ondansetron HCl 4 mg Q4HP PRN IV 11/10/24 09:45 Multivitamins/ Minerals 1 tab DAILY PO 11/10/24 10:15 11/19/24 09:52 1 TAB Thiamine HCl 100 mg DAILY PO 11/10/24 10:15 11/19/24 09:52 100 MG Folic Acid 1 mg DAILY PO 11/10/24 10:15 11/19/24 09:51 1 MG Albuterol 2.5 mg Q4HWA [facility] 11/11/24 06:00 11/19/24 14:24 2.5 MG Ipratropium [place] 0.5 mg Q4HWA [facility] 11/11/24 06:00 11/19/24 14:24 0.5 MG Pantoprazole Sodium 40 mg DAILY@0600 PO 11/12/24 06:00 11/19/24 05:26 40 MG Metoprolol Tartrate 12.5 mg BID PO 11/12/24 10:00 11/19/24 09:52 12.5 MG Meropenem 50 ml @ 17 mls/hr Q12HR IV 11/12/24 22:00 UNV Apixaban 5 mg BID PO 11/13/24 22:00 11/19/24 09:51 5 MG Amiodarone HCl 200 mg Q12HR PO 11/14/24 10:00 11/19/24 09:51 200 MG Fluconazole 200 mg DAILY PO 11/18/24 10:00 11/19/24 09:52 200 MG Furosemide 40 mg DAILY PO 11/19/24 10:00 UNV Furosemide 40 mg DAILY PO 11/19/24 10:00 11/19/24 09:51 40 MG Piperacillin Sod/ Tazobactam Sod 100 ml @ 25 mls/hr Q8HR IV 11/19/24 14:00 Examination General: Patient alert and oriented in person, place and time. Patient following commands. HEENT: Normocephalic, atraumatic, moist mucous membranes Respiratory/pulmonary: Decreased breath sounds in left lung with crackles Cardiovascular: Normal heart sounds S1 and S2 with no associated murmurs Abdomen: Abdomen nondistended, there is no pain to palpation in any of the abdominal quadrants, no palpable masses. Extremities: There is no peripheral edema present at the lower extremities. Peripheral Pulses: 3+ Radial (R). 3+ Radial (L). 3+ Dorsalis pedis (R). 3+ Dorsalis pedis(L) Skin: No rashes or pruritus, there is no sacral edema present at this time. Neurological: Intact cranial nerves with no focal neurologic deficits laboratory and microbiology Laboratory Tests 11/19/24 06:24 Test 11/19/24 06:24 Range/Units Serum Glucose 106 74-106 mg/dL Microbiology Date/Time Source Procedure Growth Status 11/14/24 09:32 Sputum Gram Stain - Final Complete 11/14/24 09:32 Respiratory Culture - Final Presumptive Annika albicans Complete 11/12/24 12:50 Blood Blood Culture - Final NO GROWTH AFTER 5 DAYS OF INCUBATION. Complete 11/10/24 18:02 Nose MRSA Screen - Final Complete 11/10/24 18:02 Urine - [place] Urine Culture - Final Complete Problem List/Assessment/Plan Problem List/Assessment/Plan # Acute metabolic encephalopathy due to sepsis # Septic Shock secondary to pneumonia # Atrial fibrillation with RVR and secondary hypercoagulable state #NSTEMI type 2 likely secondary to above - initial EKG revealed AFib with RVR - Troponin trends are 109>104>92 - cardiology on board - [id number]- VASc score 3 and HAS BLED score 2 - Metoprolol 12.5 mg p.o. b.i.d. and amiodarone 200 mg p.o. b.i.d. - Apixaban 5 mg bid # Sepsis due to bacteremia in the setting of suspected aspiration pneumonia/Gram positive/Gram-negative pneumonia # Sepsis with septic shock likely due to above # Bacteremia likely due to sepsis # Lactic acidosis due to sepsis - CT chest showed left lower lobe consolidation, suggestive of infectious process - chest x-ray on 11/14 showed no changes - Medneb with ipratropium and albuterol q.4 hours - IV Diflucan 200 mg daily, EKG done results Pending to review QT and possible increase in Diflucan to 400 mg - pulmonology on board - BiPAP p.r.n. -Discontinue Levaquin and continue PIP SOL # Hyperbilirubinemia with transaminitis likely due to sepsis # Coagulopathy likely due to sepsis # Mildly elevated lipase # [place] secondary to hemodynamically mediated/VMN - FENa 0.1% likely pre renal - PO Lasix 40 mg daily - nephrology on board - Avoid nephrotoxic medications - strict I&O # Obesity class 1, BMI 34.7 kg/m2 # Moderate protein calorie malnutrition, albumin 2.8 DVT prophylax: Apixaban GI prophylaxis: Protonix Goals of care discussed with Patient for 24 mins: full code Case Discussed with Dr. Mtz Plan discussed with: Patient Dietary Evaluation Review Recommendations by RD: Protein Supplementation Comments: 1) Consider changing from mechanical soft cardiac to mechanical soft hepatic 80g Pro diet 2) Initiate NutriHep qd 3) Encourage optimal PO intake 4) Refer to outpatient RD for weight management 5) Follow-up with cardiology, hepatology, and nephrology 6) Follow-up with social services r/t ETOH cesastion 7) Continue to monitor I&O, labs, and skin integrity Expected Outcomes/Goals: 1) appetite and labs to improve 2) f/u in 3-5 days Date of Service: Nov 19, 2024 Billing Provider: CAIT MTZ MD Common Visit Codes: [id number] INP/OBS CARE(HIGH) BRITTNEY PENNY RESIDENT Nov 19, 2024 15:39 CAIT MTZ MD Nov 19, 2024 23:07
[2024-11-19] MEDS: PIPERACILLIN-TAZOB 3.375GM 100 ML IV SCH ×2 (15:54→23:58)
[2024-11-20] VITALS (20 sets, daily range): BP systolic 105–125; BP diastolic 63–74; PULSE 63–94; RESP 11–19; TEMP 97.1–98.8; O2SAT 93–100
[2024-11-20 06:59] LABS: Hematocrit 33.1 % (41.0-53.0); Hemoglobin 10.9 g/dL (13.5-17.5); Mean Corpuscular Hemoglobin 29.1 pg (28.0-32.0); Mean Corpuscular Volume 88.1 fL (80.0-100.0); Nucleated Red Blood Cells % 0.1 %
[2024-11-20 07:03] LABS: Anion Gap 7 (5-15); Carbon Dioxide 28 mmol/L (20-31); Chloride 104 mmol/L (98-107); Potassium 4.2 mmol/L (3.5-5.1); Sodium 139 mmol/L (136-145)
[2024-11-20 07:14] LABS: Blood Urea Nitrogen 42 mg/dL (9-23); Calcium 8.4 mg/dL (8.7-10.4); Glucose 117 mg/dL (74-106)
[2024-11-20 07:28] LABS: BUN/Creatinine Ratio 42.0 (10.0-20.0)
--- NOTE | 2024-11-20 12:37 | DVHPN2 ---
Progress Note - Dictate Date Seen: Nov 20, 2024 Medical Necessity Reason Pt with a Central, PICC or Fol: No Reason for crowell catheter: Strict I&O vital signs Vital Sign Date Time Temp Pulse Resp B/P (MAP) Pulse Ox O2 Delivery O2 Flow Rate FiO2 11/20/24 09:54 70 16 99 11/20/24 09:53 119/71 11/20/24 09:48 Nasal Cannula* 2 28 11/20/24 09:00 97.1 97.1 Total Intake and Output 11/19/24 11/19/24 11/20/24 15:00 23:00 07:00 Intake Total 700 ml 1300 ml Output Total 575 ml 950 ml Balance 125 ml 350 ml medications Current Medications Medications Dose Ordered Sig/Dennis Route Start Time Stop Time Status Last Admin Dose Admin Ondansetron HCl 4 mg Q4HP PRN IV 11/10/24 09:45 Multivitamins/ Minerals 1 tab DAILY PO 11/10/24 10:15 11/20/24 08:53 1 TAB Thiamine HCl 100 mg DAILY PO 11/10/24 10:15 11/20/24 08:53 100 MG Folic Acid 1 mg DAILY PO 11/10/24 10:15 11/20/24 08:53 1 MG Albuterol 2.5 mg Q4HWA [facility] 11/11/24 06:00 11/20/24 09:48 2.5 MG Ipratropium [place] 0.5 mg Q4HWA [facility] 11/11/24 06:00 11/20/24 09:48 0.5 MG Pantoprazole Sodium 40 mg DAILY@0600 PO 11/12/24 06:00 11/20/24 06:10 40 MG Metoprolol Tartrate 12.5 mg BID PO 11/12/24 10:00 11/20/24 08:53 12.5 MG Meropenem 50 ml @ 17 mls/hr Q12HR IV 11/12/24 22:00 UNV Apixaban 5 mg BID PO 11/13/24 22:00 11/20/24 08:54 5 MG Amiodarone HCl 200 mg Q12HR PO 11/14/24 10:00 11/20/24 08:54 200 MG Fluconazole 200 mg DAILY PO 11/18/24 10:00 11/20/24 08:53 200 MG Furosemide 40 mg DAILY PO 11/19/24 10:00 UNV Furosemide 40 mg DAILY PO 11/19/24 10:00 11/20/24 08:54 40 MG Piperacillin Sod/ Tazobactam Sod 100 ml @ 25 mls/hr Q8H IV 11/20/24 00:00 11/20/24 08:52 25 MLS/HR laboratory and microbiology Laboratory Tests 11/20/24 05:22 Test 11/20/24 05:22 Range/Units Serum Glucose 117 H 74-106 mg/dL Assessment/Plan Impression: Acute hypoxic respiratory failure Dependence on supplemental oxygen Sepsis Pneumonia Lactic acidosis Chronic atrial fibrillation Acute kidney injury Events: Low oxygen requirements On 1 liter nasal cannula No acute events Labs and imaging reviewed Management Continue bronchodilators Continue antibiotics Continue antifungal Incentive spirometry Diurese with Lasix Monitor renal function Monitor electrolytes. Supplement as necessary. Monitor ins and outs. Maintain euvolemia Continue PT. Protonix for GI prophylaxis Lovenox for DVT prophylaxis Dietary Evaluation Review Recommendations by RD: Protein Supplementation Comments: 1) Consider changing from mechanical soft cardiac to mechanical soft hepatic 80g Pro diet 2) Initiate NutriHep qd 3) Encourage optimal PO intake 4) Refer to outpatient RD for weight management 5) Follow-up with cardiology, hepatology, and nephrology 6) Follow-up with addiction social worker r/t ETOH cesastion 7) Continue to monitor I&O, labs, and skin integrity Expected Outcomes/Goals: 1) appetite and labs to improve 2) f/u in 3-5 days Plan discussed with: Patient DENZEL ZAPATA MD Nov 20, 2024 12:37
--- NOTE | 2024-11-20 17:09 | DVHPNRES ---
Progress Note Date Seen: Nov 20, 2024 Resident Creating Document: JOHN ANTHONY RESIDENT Medical Necessity Reason Pt with a Central, PICC or Fol: No Reason for crowell catheter: Strict I&O Subjective Review of Systems Patient is a 79-year-old male with prior medical history of HTN and afib who presented to the ED with chief complaint of altered level of mentation and shortness of breath. Patient's family called 911 due to patient being ill for the past week with intermittent shortness of breath. Upon EMS arrival, slight fever with 100 F, patient's vital signs were stable, HR 120-130, BP 111 systolic. Patient was given breathing treatment in route, resolved SOB. In route, patient's HR was 226, a-fib/RVR, BP 90 systolic, IV fluids were given . Initial labs show WBCs 31.2, hemoglobin 15.1, hematocrit 45.3, platelets 333, sodium 141, potassium 5, BUN 89, creatinine 2.23, lactic acid at 3.7, AST 339, ALT 122, alkaline phosphatase 147. Chest x-ray shows patchy and confluent airspace opacities in the mid to lower left lung which could reflect pneumonia. Sepsis protocol was initiated patient was admitted for further workup and antibiotic treatment. Patient seen at bedside. Patient states he feels better, sleeps well, is eating, and shortness of breath has improved. Complains of muscle weakness, state with the help of PT he is currently able to stand for 2 minutes with a walker but not much more. Labs today show CBCs 12.6, hemoglobin 10.9, hematocrit 33.1, platelets 299, sodium 139, potassium 4.2, creatinine 1, and glucose 117. He is currently on 1 L of oxygen and tolerating. Sputum culture growing Annika, patient currently on fluconazole 200 mg IV. EKG from yesterday shows QRS 0.16. Patient will be started on fluconazole 400 mg IV. Review of Systems: Constitutional: Refers weight loss and muslce loss, denies fever and chills. HEENT: Denies changes in vision and hearing. Respiratory: Refers improvements of shortness of breath, denies cough Cardiovascular: Denies chest discomfort or palpitations GI: Denies abdominal distention, abdominal pain, diarrhea : Denies dysuria and urinary frequency. Musculoskeletal: Refers muscle weakness Skin: Denies rash and pruritus. Neurological: denies dizziness headache vision or hearing problems Objective vital signs Vital Sign Date Time Temp Pulse Resp B/P (MAP) Pulse Ox O2 Delivery O2 Flow Rate FiO2 11/20/24 14:52 70 16 100 11/20/24 14:46 Nasal Cannula 2.0 11/20/24 14:46 28 11/20/24 13:00 97.1 105/68 (80) 97.1 Total Intake and Output 11/19/24 11/19/24 11/20/24 15:00 23:00 07:00 Intake Total 700 ml 1300 ml Output Total 575 ml 950 ml Balance 125 ml 350 ml medications Current Medications Medications Dose Ordered Sig/Dennis Route Start Time Stop Time Status Last Admin Dose Admin Ondansetron HCl 4 mg Q4HP PRN IV 11/10/24 09:45 Multivitamins/ Minerals 1 tab DAILY PO 11/10/24 10:15 11/20/24 08:53 1 TAB Thiamine HCl 100 mg DAILY PO 11/10/24 10:15 11/20/24 08:53 100 MG Folic Acid 1 mg DAILY PO 11/10/24 10:15 11/20/24 08:53 1 MG Albuterol 2.5 mg Q4HWA [facility] 11/11/24 06:00 11/20/24 14:46 2.5 MG Ipratropium [place] 0.5 mg Q4HWA [facility] 11/11/24 06:00 11/20/24 14:46 0.5 MG Pantoprazole Sodium 40 mg DAILY@0600 PO 11/12/24 06:00 11/20/24 06:10 40 MG Metoprolol Tartrate 12.5 mg BID PO 11/12/24 10:00 11/20/24 08:53 12.5 MG Meropenem 50 ml @ 17 mls/hr Q12HR IV 11/12/24 22:00 UNV Apixaban 5 mg BID PO 11/13/24 22:00 11/20/24 08:54 5 MG Amiodarone HCl 200 mg Q12HR PO 11/14/24 10:00 11/20/24 08:54 200 MG Fluconazole 200 mg DAILY PO 11/18/24 10:00 11/20/24 08:53 200 MG Furosemide 40 mg DAILY PO 11/19/24 10:00 UNV Furosemide 40 mg DAILY PO 11/19/24 10:00 11/20/24 08:54 40 MG Piperacillin Sod/ Tazobactam Sod 100 ml @ 25 mls/hr Q8H IV 11/20/24 00:00 11/20/24 16:34 25 MLS/HR Examination General: Patient alert and oriented in person, place and time. Patient following commands. HEENT: Normocephalic, atraumatic, moist mucous membranes Respiratory/pulmonary: Decreased breath sounds in left lung with crackles Cardiovascular: Normal heart sounds S1 and S2 with no associated murmurs Abdomen: Abdomen nondistended, there is no pain to palpation in any of the abdominal quadrants, no palpable masses. Extremities: Bilateral pedal edema. 1+ on the left 2+ on the right. Peripheral Pulses: 3+ Radial (R). 3+ Radial (L). 3+ Dorsalis pedis (R). 3+ Dorsalis pedis(L) Skin: No rashes or pruritus Neurological: Intact cranial nerves with no focal neurologic deficits laboratory and microbiology Laboratory Tests 11/20/24 05:22 Test 11/20/24 05:22 Range/Units Serum Glucose 117 H 74-106 mg/dL Microbiology Date/Time Source Procedure Growth Status 11/14/24 09:32 Sputum Gram Stain - Final Complete 11/14/24 09:32 Respiratory Culture - Final Presumptive Annika albicans Complete 11/12/24 12:50 Blood Blood Culture - Final NO GROWTH AFTER 5 DAYS OF INCUBATION. Complete 11/10/24 18:02 Nose MRSA Screen - Final Complete 11/10/24 18:02 Urine - Crowell [place] Urine Culture - Final Complete Problem List/Assessment/Plan Problem List/Assessment/Plan Assessment and Plan: Acute metabolic encephalopathy due to sepsis Septic Shock secondary to pneumonia Acute hypoxic respiratory failure due to pneumonia, currently on 1L O2 NC Atrial fibrillation with RVR and secondary hypercoagulable state NSTEMI type 2 likely secondary to above - initial EKG revealed AFib with RVR - Troponin trends are 109>104>92 - cardiology on board - [id number]- VASc score 3 and HAS BLED score 2 - Metoprolol 12.5 mg p.o. b.i.d. and amiodarone 200 mg p.o. b.i.d. - Apixaban 5 mg bid Sepsis due to bacteremia in the setting of suspected aspiration pneumonia/Gram positive/Gram-negative pneumonia, resolved Sepsis with septic shock likely due to above,resolved Bacteremia likely due to sepsis Lactic acidosis due to sepsis,resolved - CT chest showed left lower lobe consolidation, suggestive of infectious process - chest x-ray on 11/14 showed no changes - Medneb with ipratropium and albuterol q.4 hours - IV Diflucan 200 mg daily, increase to Diflucan to 400 mg - pulmonology on board - BiPAP p.r.n. 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 Mtz Plan discussed with: Patient Dietary Evaluation Review Recommendations by RD: Protein Supplementation Comments: 1) Consider changing from mechanical soft cardiac to mechanical soft hepatic 80g Pro diet 2) Initiate NutriHep qd 3) Encourage optimal PO intake 4) Refer to outpatient RD for weight management 5) Follow-up with cardiology, hepatology, and nephrology 6) Follow-up with social work instructor r/t ETOH cesastion 7) Continue to monitor I&O, labs, and skin integrity Expected Outcomes/Goals: 1) appetite and labs to improve 2) f/u in 3-5 days Date of Service: Nov 20, 2024 Billing Provider: CAIT MTZ MD Common Visit Codes: [id number] INP/OBS CARE(HIGH) JOHN ANTHONY RESIDENT Nov 20, 2024 17:09 CAIT MTZ MD Nov 20, 2024 23:38
[2024-11-21] VITALS (18 sets, daily range): BP systolic 101–113; BP diastolic 64–83; PULSE 66–109; RESP 16–20; TEMP 97–98; O2SAT 91–100
[2024-11-21 07:31] LABS: Hematocrit 32.7 % (41.0-53.0); Hemoglobin 10.8 g/dL (13.5-17.5); Mean Corpuscular Hemoglobin 29.4 pg (28.0-32.0); Mean Corpuscular Volume 88.7 fL (80.0-100.0); Nucleated Red Blood Cells % 0.0 %
[2024-11-21 07:33] LABS: Anion Gap 6 (5-15); Carbon Dioxide 29 mmol/L (20-31); Chloride 104 mmol/L (98-107); Potassium 4.7 mmol/L (3.5-5.1); Sodium 139 mmol/L (136-145)
--- NOTE | 2024-11-21 07:35 | ECG ---
[facility] Test Date: 2024-11-20 Test Time: 10:21:58 Pat Name: HOLLI HOSKINS Department: Respiratoy Room: 0218T B Gender: M Blending Line Attendant: kk : 1945 Requested By: BERENICE HANLEY Order Number: [id number] Reading MD: Napoleon Brooks Measurements Intervals [place] Rate: 89 P: 0 ME: 0 QRS: -2 QRSD: 153 T: 7 QT: 436 QTc: 531 Interpretive Statements Atrial flutter with predominant 3:1 AV block Right bundle branch block Inferior infarct, old Electronically Signed On 11-21-2024 13:25:09 PDT by Napoleon Brooks Please click the below link to view image of tracing.
[2024-11-21 07:37] LABS: Calcium 8.4 mg/dL (8.7-10.4)
[2024-11-21 07:39] LABS: BUN/Creatinine Ratio 30.5 (10.0-20.0); Blood Urea Nitrogen 36 mg/dL (9-23); Glucose 103 mg/dL (74-106)
[2024-11-21] MEDS: FLUCONAZOLE 100 MG TAB PO SCH (10:05)
--- NOTE | 2024-11-21 18:06 | DVHPNRES ---
Progress Note Date Seen: Nov 21, 2024 Resident Creating Document: SHARYN YI RESIDENT Medical Necessity Reason Pt with a Central, PICC or Fol: No Reason for crowell catheter: Strict I&O Subjective Review of Systems Patient was seen and examined on the bedside. He is alert and oriented x3 and on nasal cannula 1 L saturating 93%. Patient is afebrile, urine output significantly increased, BUN/creatinine came back to normal. Mentioned feeling better. Physical therapy recommended SNF for rehab. Needs maximum assistance during standing, get out of the bed and feeling dizzy when standing. Consulted socially responsible investment adviser for regarding SNF placement, when bed is available. WBC is continuously trending down, sputum culture demonstrated Roger albicans and patient is on fluconazole [address] chest without contrast today demonstrated left-sided consolidation. Objective vital signs Vital Sign Date Time Temp Pulse Resp B/P (MAP) Pulse Ox O2 Delivery O2 Flow Rate FiO2 11/21/24 14:28 75 18 100 11/21/24 14:20 Room Air 0.0 11/21/24 14:20 21 11/21/24 13:00 97.3 113/81 (92) 97.3 Total Intake and Output 11/20/24 11/20/24 11/21/24 15:00 23:00 07:00 Intake Total 100 ml 750 ml Output Total 1015 ml 450 ml Balance 100 ml -265 ml -450 ml medications Current Medications Medications Dose Ordered Sig/Dennis Route Start Time Stop Time Status Last Admin Dose Admin Ondansetron HCl 4 mg Q4HP PRN IV 11/10/24 09:45 Multivitamins/ Minerals 1 tab DAILY PO 11/10/24 10:15 11/21/24 10:04 1 TAB Thiamine HCl 100 mg DAILY PO 11/10/24 10:15 11/21/24 10:04 100 MG Folic Acid 1 mg DAILY PO 11/10/24 10:15 11/21/24 10:05 1 MG Albuterol 2.5 mg Q4HWA NEB 11/11/24 06:00 11/21/24 14:20 2.5 MG Ipratropium [place] 0.5 mg Q4HWA NEB 11/11/24 06:00 11/21/24 14:19 0.5 MG Pantoprazole Sodium 40 mg DAILY@0600 PO 11/12/24 06:00 11/21/24 05:17 40 MG Metoprolol Tartrate 12.5 mg BID PO 11/12/24 10:00 11/21/24 10:06 12.5 MG Meropenem 50 ml @ 17 mls/hr Q12HR IV 11/12/24 22:00 UNV Apixaban 5 mg BID PO 11/13/24 22:00 11/21/24 10:04 5 MG Amiodarone HCl 200 mg Q12HR PO 11/14/24 10:00 11/21/24 10:05 200 MG Furosemide 40 mg DAILY PO 11/19/24 10:00 UNV Furosemide 40 mg DAILY PO 11/19/24 10:00 11/21/24 10:05 40 MG Fluconazole 400 mg DAILY PO 11/21/24 10:00 11/21/24 10:05 400 MG Examination Physical examination: General Appearance: Alert, Oriented X3, Cooperative, mild distress. HEENT: Atraumatic, PERRLA, EOMI, Mucous membrane moist/pink Respiratory: Left sided slightly decreased breath sound and ronchi. Cardiovascular: Irregular rate, Normal S1, Normal S2, No murmurs, no chest wall tenderness Abdominal: Normal bowel sounds, Soft, No tenderness, No hepatospenomegaly, No masses Extremities: Trace pedal edema, No clubbing, No cyanosis, Normal pulses, No tenderness/swelling Skin: No rashes, No breakdown, No significant lesion Neuro: Normal speech, Strength at 5/5 X4 ext, Normal tone, Sensation intact, Cranial nerves 3-12 NL, Reflexes 2+ Psych/Mental Status: Mental status NL, Mood N laboratory and microbiology Laboratory Tests 11/21/24 06:07 Test 11/21/24 06:07 Range/Units Serum Glucose 103 74-106 mg/dL Microbiology Date/Time Source Procedure Growth Status 11/14/24 09:32 Sputum Gram Stain - Final Complete 11/14/24 09:32 Respiratory Culture - Final Presumptive Roger albicans Complete 11/12/24 12:50 Blood Blood Culture - Final NO GROWTH AFTER 5 DAYS OF INCUBATION. Complete 11/10/24 18:02 Nose MRSA Screen - Final Complete 11/10/24 18:02 Urine - [place] Urine Culture - Final Complete Labs and/or images reviewed: Labs reviewed by me, Image(s) reviewed by me Problem List/Assessment/Plan Problem List/Assessment/Plan Assessment and plan: # Acute metabolic encephalopathy due to sepsis # Septic Shock secondary to pneumonia # Atrial fibrillation with RVR and secondary hypercoagulable state #NSTEMI type 2 likely secondary to above - initial EKG revealed AFib with RVR - Troponin trends are 109>104>92 - cardiology on board - [id number]- VASc score 3 and HAS BLED score 2 - Metoprolol 12.5 mg p.o. b.i.d. and amiodarone 200 mg p.o. b.i.d. - Eloquis 5 mg bid # Possible aspiration pneumonia # Possible gram positive/Gram-negative pneumonia # Sepsis with septic shock likely due to above # Bacteremia likely due to sepsis # Lactic acidosis likely due to sepsis - CT chest showed left lower lobe consolidation, suggestive of infectious process - chest x-ray on 5 showed left-sided consolidation, worse than the previous x-ray - Medneb with ipratropium and albuterol q.4 hours - Resp culture showed roger albicans - Fluconazole 400 mg po daily - pulmonology on board # Hyperbilirubinemia with transaminitis likely due to sepsis # Coagulopathy likely due to sepsis # Mildly elevated lipase # CORINA secondary to hemodynamically mediated/VMN resolved - Lasix 40 mg po daily - Avoid nephrotoxic medication - strict I&O # Obesity class 1, BMI 34.7 kg/m2 # Moderate protein calorie malnutrition, albumin 2.8 DIET: Cardiac diet DVT prophylax: Eloquis GI prophylaxis: Protonix Bowel regimen: Code status: Full code LINES/DRAINS/ACCESS: IV access: Peripheral line placed on 08/02 Crowell catheter: placed on 08/02 DISPOSITION: Telemetry Case discussed with Plan discussed with: Patient, Other My Orders My Orders Orders - SHARYN YI RESIDENT Procedure Category Date Status Time Chest Without Contrast CT 11/21/24 Taken 14:00 Dietary Evaluation Review Recommendations by RD: Protein Supplementation Comments: 1) Consider changing from mechanical soft cardiac to mechanical soft hepatic 80g Pro diet 2) Initiate NutriHep qd 3) Encourage optimal PO intake 4) Refer to outpatient RD for weight management 5) Follow-up with cardiology, hepatology, and nephrology 6) Follow-up with socially responsible investment adviser r/t ETOH cesastion 7) Continue to monitor I&O, labs, and skin integrity Expected Outcomes/Goals: 1) appetite and labs to improve 2) f/u in 3-5 days Date of Service: Nov 21, 2024 Billing Provider: TOMAS NICOLE MD Common Visit Codes: [id number] INP/OBS CARE(MOD) SHARYN YI RESIDENT Nov 21, 2024 18:06 TOMAS NICOLE MD Nov 23, 2024 21:28
--- NOTE | 2024-11-21 18:20 | DVHPN2 ---
Progress Note - Dictate Date Seen: Nov 21, 2024 Medical Necessity Reason Pt with a Central, PICC or Fol: No Reason for crowell catheter: Strict I&O vital signs Vital Sign Date Time Temp Pulse Resp B/P (MAP) Pulse Ox O2 Delivery O2 Flow Rate FiO2 11/21/24 14:28 75 18 100 11/21/24 14:20 Room Air 0.0 11/21/24 14:20 21 11/21/24 13:00 97.3 113/81 (92) 97.3 Total Intake and Output 11/20/24 11/20/24 11/21/24 15:00 23:00 07:00 Intake Total 100 ml 750 ml Output Total 1015 ml 450 ml Balance 100 ml -265 ml -450 ml medications Current Medications Medications Dose Ordered Sig/Dennis Route Start Time Stop Time Status Last Admin Dose Admin Ondansetron HCl 4 mg Q4HP PRN IV 11/10/24 09:45 Multivitamins/ Minerals 1 tab DAILY PO 11/10/24 10:15 11/21/24 10:04 1 TAB Thiamine HCl 100 mg DAILY PO 11/10/24 10:15 11/21/24 10:04 100 MG Folic Acid 1 mg DAILY PO 11/10/24 10:15 11/21/24 10:05 1 MG Albuterol 2.5 mg Q4HWA [facility] 11/11/24 06:00 11/21/24 14:20 2.5 MG Ipratropium [place] 0.5 mg Q4HWA [facility] 11/11/24 06:00 11/21/24 14:19 0.5 MG Pantoprazole Sodium 40 mg DAILY@0600 PO 11/12/24 06:00 11/21/24 05:17 40 MG Metoprolol Tartrate 12.5 mg BID PO 11/12/24 10:00 11/21/24 10:06 12.5 MG Meropenem 50 ml @ 17 mls/hr Q12HR IV 11/12/24 22:00 UNV Apixaban 5 mg BID PO 11/13/24 22:00 11/21/24 10:04 5 MG Amiodarone HCl 200 mg Q12HR PO 11/14/24 10:00 11/21/24 10:05 200 MG Furosemide 40 mg DAILY PO 11/19/24 10:00 UNV Furosemide 40 mg DAILY PO 11/19/24 10:00 11/21/24 10:05 40 MG Fluconazole 400 mg DAILY PO 11/21/24 10:00 11/21/24 10:05 400 MG laboratory and microbiology Laboratory Tests 11/21/24 06:07 Test 11/21/24 06:07 Range/Units Serum Glucose 103 74-106 mg/dL Assessment/Plan Impression: Acute hypoxic respiratory failure Dependence on supplemental oxygen Sepsis Pneumonia Lactic acidosis Chronic atrial fibrillation Acute kidney injury Events: Low oxygen requirements On room air No distress CT of the chest was reviewed and shows persistent consolidation left lower lobe Resolution may take some time Sputum culture growing Annika albicans Most likely contaminant Management Continue bronchodilators Completed antibiotics On antifungals Incentive spirometry Diurese with Lasix Monitor renal function Monitor electrolytes. Supplement as necessary. Monitor ins and outs. Continue PT. Protonix for GI prophylaxis Lovenox for DVT prophylaxis Dietary Evaluation Review Recommendations by RD: Protein Supplementation Comments: 1) Consider changing from mechanical soft cardiac to mechanical soft hepatic 80g Pro diet 2) Initiate NutriHep qd 3) Encourage optimal PO intake 4) Refer to outpatient RD for weight management 5) Follow-up with cardiology, hepatology, and nephrology 6) Follow-up with social insurance administrator r/t ETOH cesastion 7) Continue to monitor I&O, labs, and skin integrity Expected Outcomes/Goals: 1) appetite and labs to improve 2) f/u in 3-5 days Plan discussed with: Patient DENZEL ZAPATA MD Nov 21, 2024 18:20
--- NOTE | 2024-11-21 19:38 | DVH ---
NON-CONTRAST CHEST COMPUTERIZED TOMOGRAPHY REASON FOR STUDY: Left sided conolidation COMPARISON: None TECHNIQUE: The exam was performed on a multidetector spiral scanner. Spiral scans were acquired throu gh the chest. 2-D coronal and sagittal reformatted images were provided. Radiation optimization: All CT scans at this facility use at least one of these dose optimization techniques: Automated exposure control mA and/or kV adjustment per patient size (includes targeted exams where dose is matched to cl inical indication) or iterative reconstruction. RADIATION DOSE: CTDI: 12.99 mGy DLP: 468.65 mGy-cm FINDINGS: There is minimal dependent atelectasis in the right lower lobe. There is mild consolidat stacy airspace disease in the right upper lobe near the fissure and some patchy airspace disease more a nteriorly. There is extensive consolidative airspace disease in the left lower lobe with air bronchog maegan consistent with pneumonia. There is moderate airspace disease in the posterior portion of the l eft upper lobe. There is a small left pleural effusion. There is no pneumothorax. The visualized thy roid gland is unremarkable. The heart is normal in size. There is no pericardial effusion. There i s no thoracic aortic aneurysm. No pathologic lymphadenopathy is identified by size criteria. There are scattered subcentimeter lymph nodes in the mediastinum. There are coronary artery calcifications . No acute osseous abnormality is identified. There is old healed fracture of the left 9th rib. IMPRESSION: Extensive left lower lobe pneumonia with moderate left upper lobe pneumonia. Mild right upper lobe pn eumonia.
[2024-11-22] VITALS (17 sets, daily range): BP systolic 98–129; BP diastolic 53–77; PULSE 64–95; RESP 16–22; TEMP 97.2–97.7; O2SAT 92–100
[2024-11-22 08:50] LABS: Hematocrit 35.8 % (41.0-53.0); Hemoglobin 12.1 g/dL (13.5-17.5); Mean Corpuscular Hemoglobin 29.8 pg (28.0-32.0); Mean Corpuscular Volume 87.8 fL (80.0-100.0); Nucleated Red Blood Cells % 0.1 %
--- NOTE | 2024-11-22 16:01 | DVHDSRES ---
Discharge Summary Date of Admission Resident Creating Document: SHARYN YI RESIDENT Nov 10, 2024 at 09:51 Date of Discharge: Nov 22, 2024 Admitting Diagnosis Acute metabolic encephalopathy due to sepsis Wounds: erythema on the back Labs/Diagnostic Data: Laboratory Results Test 11/22/24 08:36 11/21/24 06:07 11/19/24 06:24 11/18/24 05:40 White Blood Count 10.2 10^3/uL (4.4-10.8) Red Blood Count 4.08 10^6/uL (4.5-5.90) Hemoglobin 12.1 g/dL (13.5-17.5) Hematocrit 35.8 % (41.0-53.0) Mean Corpuscular Volume 87.8 fL (80.0-100.0) Mean Corpuscular Hemoglobin 29.8 pg (28.0-32.0) Mean Corpuscular Hemoglobin Concent 33.9 g/dL (32.0-36.0) Red Cell Distribution Width 14.4 % (11.8-14.3) Platelet Count 341 10^3/uL (140-450) Mean Platelet Volume 7.7 fL (6.9-10.8) Neutrophils (%) (Auto) 75.0 % (37.0-80.0) Lymphocytes (%) (Auto) 17.3 % (10.0-50.0) Monocytes (%) (Auto) 4.9 % (0.0-12.0) Eosinophils (%) (Auto) 1.6 % (0.0-7.0) Basophils (%) (Auto) 1.2 % (0.0-2.0) Neutrophils # (Auto) 7.6 10 ^3/uL (1.6-8.6) Lymphocytes # (Auto) 1.8 10 ^3/uL (0.4-5.4) Monocytes # (Auto) 0.5 10 ^3/uL (0-1.3) Eosinophils # (Auto) 0.2 10 ^3/uL (0-0.8) Basophils # (Auto) 0.1 10 ^3/uL (0-0.2) Nucleated Red Blood Cells 0.1 % Sodium Level 139 mmol/L (136-145) Potassium Level 4.7 mmol/L (3.5-5.1) Chloride Level 104 mmol/L (98-107) Carbon Dioxide Level 29 mmol/L (20-31) Anion Gap 6 (5-15) Blood Urea Nitrogen 36 mg/dL (9-23) Creatinine 1.18 mg/dL (0.700-1.30) Glomerular Filtration Rate Calc 63 mL/min (>90) BUN/Creatinine Ratio 30.5 (10.0-20.0) Serum Glucose 103 mg/dL (74-106) Calcium Level 8.4 mg/dL (8.7-10.4) Differential Total Cells Counted 100.0 (100) Neutrophils % (Manual) 83 (37.0-80.0) Band Neutrophils % (Manual) 1 Lymphocytes % (Manual) 10 (10.0-50.0) Monocytes % (Manual) 2 (0-12) Eosinophils % (Manual) 1 (0-7) Basophils % (Manual) 0 (0.0-2.0) Metamyelocytes % (manual) 0 Myelocytes % (Manual) 2 Promyelocytes % (Manual) 0 Blast Cells % (Manual) 0 Reactive Lymphocytes 1 Platelet Estimate Adequate B-Type Natriuretic Peptide 107.14 pg/mL (0-100) Random Vancomycin Level 17.4 ug/mL (5-10) Test 11/16/24 06:14 11/14/24 08:24 11/13/24 04:42 11/12/24 18:40 Total Bilirubin 1.3 mg/dL (0.2-1.0) Aspartate Amino Transferase (AST) 98 U/L (13-40) Alanine Aminotransferase (ALT) 73 U/L (7-40) Alkaline Phosphatase 141 U/L (46-116) Total Protein 6.0 g/dL (5.7-8.2) Albumin 2.4 g/dL (3.2-4.8) Large Platelets Few Lactic Acid Level 1.5 mmol/L (0.4-2.0) Direct Bilirubin 1.2 mg/dL (<0.3) Blood Gas Specimen Type Arterial Blood Gas Sample Site Left radial Blood Gas Patient Temperature 37.0 Arterial Blood Date Drawn [id number] Arterial Blood pH 7.410 (7.350-7.450) Arterial Blood Partial Pressure CO2 18.9 mmHg (35.0-48.0) Arterial Blood Partial Pressure O2 77.3 mmHg (83.0-108.0) Arterial Blood HCO3 11.7 mmol/L (21.0-28.0) Arterial Blood Oxygen Saturation 94.6 % (94.0-98.0) Arterial Blood Base Excess -10.3 mmol/L (-2.0-3.0) Arterial Blood Oxyhemoglobin 93.8 % (94.0-98.0) Arterial Blood Carboxyhemoglobin 0.2 % (0.5-1.5) Arterial Blood Methemoglobin 0.6 % (0.0-1.5) Yoni Test Yes Blood Gas Total Hemoglobin 13.80 g/dL (13.5-17.5) Blood Gas Set Respiration Rate 12.0 Blood Gas Modality Mask - bipap Blood Gas Spontaneous Rate 33 FiO2 % 40.0 Blood Gas EPAP 5 Blood Gas IPAP 12 Blood Gas Critical Value Read Back Yes Blood Gas Notified Whom pema Loft[place] md Blood Gas Notified Time [id number] Blood Gas Notified By Test 11/11/24 10:34 11/11/24 04:35 11/10/24 18:38 11/10/24 15:43 Urine Creatinine 146.86 mg/dL (30.0-125.0) Urine Protein/Creatinine Ratio 0.77 Urine Sodium 13 mmol/L (40-220) Urine Total Protein 113.0 mg/dL (1-14) Influenza Type A Antigen Negative (Negative) Influenza Type B Antigen Negative (Negative) SARS-CoV-2 Antigen (Rapid) Negative (NEGATIVE) Smudge Cells 2 /100 WBC Magnesium Level 3.3 mg/dL (1.6-2.6) Vitamin D 25-Hydroxy 68.9 ng/mL (30.0-100) Free Thyroxine (T4) Calculated 0.59 ng/dL (0.89-1.76) Parathyroid Hormone (Intact) 101.8 pg/mL (18.4-80.1) Ammonia < 10 umol/L (11-32) Hemoglobin A1c 5.2 % A1C (<5.7) Test 11/10/24 15:04 11/10/24 10:09 11/10/24 08:40 11/10/24 04:45 Blood Gas Liter Flow 4.00 Prothrombin Time 13.7 sec (9.3-11.8) Prothrombin Time INR 1.33 (0.9-1.15) C-Reactive Protein High Sensitivity > 20.00 mg/dL (<1.0) Lipase 68 U/L (12-53) Thyroid Stimulating Hormone (TSH) 5.71 uIU/mL (0.55-4.78) Hepatitis A IgM Antibody Negative Hepatitis B Surface Antigen Negative (Negative) Hepatitis B Core IgM Antibody Negative (Negative) Hepatitis C Antibody Negative (Negative) Urine Color Dark-yellow (Yellow) Urine Clarity Ex.turbid (Clear) Urine pH 5.5 (5.0-9.0) Urine Specific [place] 1.019 (1.001-1.035) Urine Protein 1+ (Negative) Urine Ketones Negative (Negative) Urine Blood 2+ /uL (Negative) Urine Nitrite Negative (Negative) Urine Bilirubin 2+ (Negative) Urine Urobilinogen 6 mg/dL (Negative) Urine Leukocyte Esterase Negative /uL (Negative) Urine RBC 1 /hpf (0 - 3) Urine Microscopic WBC 4 /HPF (0-3) Urine Squamous Epithelial Cells None seen /hpf (<5) Urine Amorphous Crystals Few /hpf (None Seen) Urine Bacteria Few /hpf (None Seen) Urine Mucus Few (None Seen) Urine Glucose Normal mg/dL (Normal) Urine Opiates Screen Neg (NEGATIVE) Urine Fentanyl Screen Neg (NEGATIVE) Urine Barbiturates Screen Neg (NEGATIVE) Urine Phencyclidine Screen Neg (NEGATIVE) Urine Amphetamines Screen Neg (NEGATIVE) Urine Benzodiazepines Screen Neg (NEGATIVE) Urine Cocaine Screen Neg (NEGATIVE) Urine Cannabinoids Screen Neg (NEGATIVE) Test 11/10/24 01:43 11/09/24 22:57 Troponin I High Sensitivity 92 ng/L (</=54) Giant Platelets Few Other Laboratory Tests 11/22/24 08:36 11/21/24 06:07 Brief Hx & Hospital Course: This is a 79-year-old male with atrial fibrillation, hypertension, chronic alcohol dependence who presented to the ER for the evaluation of altered level of consciousness and shortness of breaths associated with cough. Initially patient was confused ,septic and EKG revealed AFib with RVR. Troponin was mildly elevated to 109 and downtrending . Initial chest x-ray showed patchy and confluent airspace opacity in the mid to lower left lung which could reflect pneumonia. Chest CT showed left lower lobe consolidation favoring infectious process. Initially patient was in [facility] treated for septic shock with sepsis secondary to possible aspiration pneumonia with IV meropenem 500 mg q 8hr, IV vancomycin as per pharmacy and needed Levophed to maintain blood pressure and was on 3 L oxygen with saturation 97%. Nephrology was consulted due to CORINA likely secondary to hemodynamically mediated /VMN. Blood culture was positive for Staphylococcus epidermidis and follow up blood culture was negative. Patient became more stable and downgraded to telemetry. Deescalated to IV antibiotic to oral levofloxacin 750 mg p.o. daily. Respiratory culture demonstrated Annika albicans and started oral fluconazole [address] chest on 11/09/2024 showed persistent left lower lobe consolidation and pulmonology mentioned resolution may take some time. CORINA resolved and WBC count trending down to normal. PT evaluation recommended SNF for further rehab. patient is now on room air saturating 95% on. police worker was consulted for SNF placement. Patient is continuing inpatient physical therapy. Discharge plan was discussed with the patient and the and all questions were answered. Patient is being discharged to SNF. Physical examination: General Appearance: Alert, Oriented X3, Cooperative, mild distress. HEENT: Atraumatic, PERRLA, EOMI, Mucous membrane moist/pink Respiratory: Left sided slightly decreased breath sound. Cardiovascular: Irregular rate, Normal S1, Normal S2, No murmurs, no chest wall tenderness Abdominal: Normal bowel sounds, Soft, No tenderness, No hepatospenomegaly, No masses Extremities: Trace pedal edema, No clubbing, No cyanosis, Normal pulses, No tenderness/swelling Skin: No rashes, No breakdown, No significant lesion Neuro: Normal speech, Strength at 5/5 X4 ext, Normal tone, Sensation intact, Cranial nerves 3-12 NL, Reflexes 2+ Psych/Mental Status: Mental status NL, Mood N Consults/Reason for consult Pulmonology and Nephrology were consulted. Operations or Procedures EXAM: XY CHEST PORTABLE FINDINGS: Lines and tubes: None Chest: The heart size and pulmonary vasculature is within normal limits. Patchy and confluent airspace opacities in the mid to lower left lung. The osseous structures are grossly intact. Multilevel thoracic spondylosis. IMPRESSION: Patchy and confluent airspace opacities in the mid to lower left lung which could reflect pneumonia. Exam: CT CT AB PEL WO CON-NO ORAL OR IV History: abdominal pain FINDINGS: Evaluation of solid organs is limited due to lack of intravenous contrast use. Imaged portions of the lung bases demonstrate consolidation and opacification of the left lower lobe. The heart appears prominent size. Liver, gallbladder, pancreas, adrenal glands and spleen appear unremarkable. There is a small hiatal hernia. 1.7 cm left exophytic renal mass likely represent cyst. No evidence of hydronephrosis or calculus. No evidence of bowel obstruction or focal bowel wall thickening. Small umbilical fat containing hernia. Severe degenerative changes of the spine without suspicious osseous lesion. IMPRESSION: 1. No acute abdominal or pelvic finding. 2. Left lower lobe consolidation favoring infectious process. NON-CONTRAST CHEST COMPUTERIZED TOMOGRAPHY REASON FOR STUDY: Left sided conolidation COMPARISON: None FINDINGS: There is minimal dependent atelectasis in the right lower lobe. There is mild consolidative airspace disease in the right upper lobe near the fissure and some patchy airspace disease more anteriorly. There is extensive consolidative airspace disease in the left lower lobe with air bronchograms consistent with pneumonia. There is moderate airspace disease in the posterior portion of the left upper lobe. There is a small left pleural effusion. There is no pneumothorax. The visualized thyroid gland is unremarkable. The heart is normal in size. There is no pericardial effusion. There is no thoracic aortic aneurysm. No pathologic lymphadenopathy is identified by size criteria. There are scattered subcentimeter lymph nodes in the mediastinum. There are coronary artery calcifications. No acute osseous abnormality is identified. There is old healed fracture of the left 9th rib. IMPRESSION: Extensive left lower lobe pneumonia with moderate left upper lobe pneumonia. Mild right upper lobe pneumonia. Condition at Discharge: Stable Final Diagnosis/Problems List # Acute metabolic encephalopathy due to sepsis # Septic Shock secondary to pneumonia # Atrial fibrillation with RVR and secondary hypercoagulable state # NSTEMI type 2 likely secondary to above # Possible aspiration pneumonia # Possible gram positive/Gram-negative pneumonia # Sepsis with septic shock likely due to above # Bacteremia likely due to sepsis # Lactic acidosis likely due to sepsis # Hyperbilirubinemia with transaminitis likely due to sepsis # Coagulopathy likely due to sepsis # Mildly elevated lipase # CORINA secondary to hemodynamically mediated/VMN resolved # Obesity class 1, BMI 34.7 kg/m2 # Moderate protein calorie malnutrition, albumin 2.8 Discharge Disposition: Custodial Facility Discharge Instruct/Medications Diet: Cardiac 2g Na,low cholest Activity: No Restrictions, As Tolerated Follow Up/Referral: Follow up with DC clinic in 2 weeks. Follow up with outpatient pulmonology in 2 to 3 weeks. Medications: As per EMR Discharge Statement: "Patient was advised to return to the ER or call 911 if any headaches, dizziness, shortness of breath, chest pain, abdominal pain, bleeding, fevers, or worsening of medical condition. Patient was counseled about treatment plan, medications, possible side effects, patientverbalized understanding. All questions were answered to the best of my ability. This discharge took greater then 30 minutes in planning, reviewing documentation, counseling the patient, and discussing with other team members." ASSESSMENT ASSESSMENT Assessment Acute metabolic encephalopathy due to sepsis Date of Service: Nov 22, 2024 Billing Provider: TOMAS NICOLE MD Common Visit Codes: 06593-CJC/OBS DISCH DAY >30min SHARYN YI RESIDENT Nov 22, 2024 16:01 TOMAS NICOLE MD Nov 23, 2024 21:51
--- NOTE | 2024-11-22 18:10 | DVHPN2 ---
Progress Note - Dictate Date Seen: Nov 22, 2024 Medical Necessity Reason Pt with a Central, PICC or Fol: No Reason for crowell catheter: Strict I&O vital signs Vital Sign Date Time Temp Pulse Resp B/P (MAP) Pulse Ox O2 Delivery O2 Flow Rate FiO2 11/22/24 16:30 97.4 74 19 109/53 (71) 97 97.4 11/22/24 14:50 Room Air 0.0 11/22/24 14:50 21 Total Intake and Output 11/21/24 11/21/24 11/22/24 15:00 23:00 07:00 Intake Total 849 ml 900 ml Output Total 1125 ml 1302 ml Balance -276 ml -402 ml medications Current Medications Medications Dose Ordered Sig/Dennis Route Start Time Stop Time Status Last Admin Dose Admin Ondansetron HCl 4 mg Q4HP PRN IV 11/10/24 09:45 Multivitamins/ Minerals 1 tab DAILY PO 11/10/24 10:15 11/22/24 09:24 1 TAB Thiamine HCl 100 mg DAILY PO 11/10/24 10:15 11/22/24 09:23 100 MG Folic Acid 1 mg DAILY PO 11/10/24 10:15 11/22/24 09:24 1 MG Albuterol 2.5 mg Q4HWA [facility] 11/11/24 06:00 11/22/24 14:52 2.5 MG Ipratropium [place] 0.5 mg Q4HWA [facility] 11/11/24 06:00 11/22/24 14:52 0.5 MG Pantoprazole Sodium 40 mg DAILY@0600 PO 11/12/24 06:00 11/22/24 05:26 40 MG Metoprolol Tartrate 12.5 mg BID PO 11/12/24 10:00 11/22/24 09:25 12.5 MG Meropenem 50 ml @ 17 mls/hr Q12HR IV 11/12/24 22:00 UNV Apixaban 5 mg BID PO 11/13/24 22:00 11/22/24 09:24 5 MG Amiodarone HCl 200 mg Q12HR PO 11/14/24 10:00 11/22/24 09:24 200 MG Furosemide 40 mg DAILY PO 11/19/24 10:00 UNV Furosemide 40 mg DAILY PO 11/19/24 10:00 11/22/24 09:25 40 MG Fluconazole 400 mg DAILY PO 11/21/24 10:00 11/22/24 09:24 400 MG laboratory and microbiology Laboratory Tests 11/22/24 08:36 11/21/24 06:07 Test 11/21/24 06:07 Range/Units Serum Glucose 103 74-106 mg/dL Assessment/Plan Impression: Acute hypoxic respiratory failure Dependence on supplemental oxygen Sepsis Pneumonia Lactic acidosis Chronic atrial fibrillation Acute kidney injury Events: Low oxygen requirements On room air No acute events Labs and imaging reviewed Management Continue bronchodilators Completed antibiotics On antifungals Incentive spirometry Diurese with Lasix Monitor renal function Monitor electrolytes. Supplement as necessary. Monitor ins and outs. Continue PT. Protonix for GI prophylaxis Lovenox for DVT prophylaxis Dietary Evaluation Review Recommendations by RD: Protein Supplementation Comments: 1) Consider changing from mechanical soft cardiac to mechanical soft hepatic 80g Pro diet 2) Initiate NutriHep qd 3) Encourage optimal PO intake 4) Refer to outpatient RD for weight management 5) Follow-up with cardiology, hepatology, and nephrology 6) Follow-up with professor of social work r/t ETOH cesastion 7) Continue to monitor I&O, labs, and skin integrity Expected Outcomes/Goals: 1) appetite and labs to improve 2) f/u in 3-5 days Plan discussed with: Patient DENZEL ZAPATA MD Nov 22, 2024 18:10
[2024-11-23] VITALS (19 sets, daily range): BP systolic 104–119; BP diastolic 56–76; PULSE 67–95; RESP 16–19; TEMP 97.4–98.3; O2SAT 91–100
--- NOTE | 2024-11-23 15:22 | DVHPNRES ---
Progress Note Date Seen: Nov 23, 2024 Resident Creating Document: SHARYN YI RESIDENT Medical Necessity Reason Pt with a Central, PICC or Fol: No Reason for crowell catheter: Strict I&O Subjective Review of Systems Patient was seen and examined on the bedside. He is alert and oriented x3 and on room air. Mentioned feeling better. Patient is discharged but awaiting for SNF placement . Objective vital signs Vital Sign Date Time Temp Pulse Resp B/P (MAP) Pulse Ox O2 Delivery O2 Flow Rate FiO2 11/23/24 13:25 77 18 100 11/23/24 13:19 Room Air 0.0 11/23/24 13:19 21 11/23/24 13:00 98.0 106/59 (75) 98.0 Total Intake and Output 11/22/24 11/22/24 11/23/24 15:00 23:00 07:00 Intake Total 600 ml 1200 ml Output Total 600 ml 925 ml Balance 0 ml 275 ml medications Current Medications Medications Dose Ordered Sig/Dennis Route Start Time Stop Time Status Last Admin Dose Admin Ondansetron HCl 4 mg Q4HP PRN IV 11/10/24 09:45 Multivitamins/ Minerals 1 tab DAILY PO 11/10/24 10:15 11/23/24 09:27 1 TAB Thiamine HCl 100 mg DAILY PO 11/10/24 10:15 11/23/24 09:28 100 MG Folic Acid 1 mg DAILY PO 11/10/24 10:15 11/23/24 09:28 1 MG Albuterol 2.5 mg Q4HWA [facility] 11/11/24 06:00 11/23/24 13:19 2.5 MG Ipratropium [place] 0.5 mg Q4HWA [facility] 11/11/24 06:00 11/23/24 13:19 0.5 MG Pantoprazole Sodium 40 mg DAILY@0600 PO 11/12/24 06:00 11/23/24 05:46 40 MG Metoprolol Tartrate 12.5 mg BID PO 11/12/24 10:00 11/22/24 21:34 12.5 MG Meropenem 50 ml @ 17 mls/hr Q12HR IV 11/12/24 22:00 UNV Apixaban 5 mg BID PO 11/13/24 22:00 11/23/24 09:27 5 MG Amiodarone HCl 200 mg Q12HR PO 11/14/24 10:00 11/23/24 09:27 200 MG Furosemide 40 mg DAILY PO 11/19/24 10:00 UNV Furosemide 40 mg DAILY PO 11/19/24 10:00 11/22/24 09:25 40 MG Fluconazole 400 mg DAILY PO 11/21/24 10:00 11/23/24 09:28 400 MG Examination Physical examination: General Appearance: Alert, Oriented X3, Cooperative, mild distress. HEENT: Atraumatic, PERRLA, EOMI, Mucous membrane moist/pink Respiratory: Left sided slightly decreased breath sound and ronchi. Cardiovascular: Irregular rate, Normal S1, Normal S2, No murmurs, no chest wall tenderness Abdominal: Normal bowel sounds, Soft, No tenderness, No hepatospenomegaly, No masses Extremities: Trace pedal edema, No clubbing, No cyanosis, Normal pulses, No tenderness/swelling Skin: No rashes, No breakdown, No significant lesion Neuro: Normal speech, Strength at 5/5 X4 ext, Normal tone, Sensation intact, Cranial nerves 3-12 NL, Reflexes 2+ Psych/Mental Status: Mental status NL, Mood N laboratory and microbiology Laboratory Tests 11/22/24 08:36 11/21/24 06:07 Test 11/21/24 06:07 Range/Units Serum Glucose 103 74-106 mg/dL Microbiology Date/Time Source Procedure Growth Status 11/14/24 09:32 Sputum Gram Stain - Final Complete 11/14/24 09:32 Respiratory Culture - Final Presumptive Roger albicans Complete 11/12/24 12:50 Blood Blood Culture - Final NO GROWTH AFTER 5 DAYS OF INCUBATION. Complete 11/10/24 18:02 Nose MRSA Screen - Final Complete 11/10/24 18:02 Urine - [place] Urine Culture - Final Complete Labs and/or images reviewed: Labs reviewed by me, Image(s) reviewed by me Problem List/Assessment/Plan Problem List/Assessment/Plan Assessment and plan: # Acute metabolic encephalopathy due to sepsis # Septic Shock secondary to pneumonia # Atrial fibrillation with RVR and secondary hypercoagulable state #NSTEMI type 2 likely secondary to above - initial EKG revealed AFib with RVR - Troponin trends are 109>104>92 - cardiology on board - [id number]- VASc score 3 and HAS BLED score 2 - Metoprolol 12.5 mg p.o. b.i.d. and amiodarone 200 mg p.o. b.i.d. - Eloquis 5 mg bid # Possible aspiration pneumonia # Possible gram positive/Gram-negative pneumonia # Sepsis with septic shock likely due to above # Bacteremia likely due to sepsis # Lactic acidosis likely due to sepsis - CT chest showed left lower lobe consolidation, suggestive of infectious process - chest x-ray on 0 5 showed left-sided consolidation, worse than the previous x-ray - Medneb with ipratropium and albuterol q.4 hours - Resp culture showed roger albicans - Fluconazole 400 mg po daily - pulmonology on board # Hyperbilirubinemia with transaminitis likely due to sepsis # Coagulopathy likely due to sepsis # Mildly elevated lipase # CORINA secondary to hemodynamically mediated/VMN resolved - Lasix 40 mg po daily - Avoid nephrotoxic medication - strict I&O # Obesity class 1, BMI 34.7 kg/m2 # Moderate protein calorie malnutrition, albumin 2.8 DIET: Cardiac diet DVT prophylax: Eloquis GI prophylaxis: Protonix Bowel regimen: Code status: Full code LINES/DRAINS/ACCESS: IV access: Peripheral line placed on 08/02 Case discussed with Plan discussed with: Patient, Other (RN) Dietary Evaluation Review Recommendations by RD: Protein Supplementation Comments: 1) Consider changing from mechanical soft cardiac to mechanical soft hepatic 80g Pro diet 2) Initiate NutriHep qd 3) Encourage optimal PO intake 4) Refer to outpatient RD for weight management 5) Follow-up with cardiology, hepatology, and nephrology 6) Follow-up with social sciences instructor r/t ETOH cesastion 7) Continue to monitor I&O, labs, and skin integrity Expected Outcomes/Goals: 1) appetite and labs to improve 2) f/u in 3-5 days Date of Service: Nov 23, 2024 Billing Provider: TOMAS NICOLE MD Common Visit Codes: [id number] INP/OBS CARE(HIGH) SHARYN YI RESIDENT Nov 23, 2024 15:22 TOMAS NICOLE MD Nov 23, 2024 21:59
--- NOTE | 2024-11-23 21:14 | DVHPN2 ---
Progress Note - Dictate Date Seen: Nov 23, 2024 Medical Necessity Reason Pt with a Central, PICC or Fol: No Reason for crowell catheter: Strict I&O vital signs Vital Sign Date Time Temp Pulse Resp B/P (MAP) Pulse Ox O2 Delivery O2 Flow Rate FiO2 11/23/24 18:40 73 18 100 11/23/24 18:34 Room Air 0.0 11/23/24 18:34 21 11/23/24 17:00 97.4 118/62 (80) 97.4 Total Intake and Output 11/22/24 11/22/24 11/23/24 15:00 23:00 07:00 Intake Total 600 ml 1200 ml Output Total 600 ml 925 ml Balance 0 ml 275 ml medications Current Medications Medications Dose Ordered Sig/Dennis Route Start Time Stop Time Status Last Admin Dose Admin Ondansetron HCl 4 mg Q4HP PRN IV 11/10/24 09:45 Multivitamins/ Minerals 1 tab DAILY PO 11/10/24 10:15 11/23/24 09:27 1 TAB Thiamine HCl 100 mg DAILY PO 11/10/24 10:15 11/23/24 09:28 100 MG Folic Acid 1 mg DAILY PO 11/10/24 10:15 11/23/24 09:28 1 MG Albuterol 2.5 mg Q4HWA [facility] 11/11/24 06:00 11/23/24 18:36 2.5 MG Ipratropium [place] 0.5 mg Q4HWA [facility] 11/11/24 06:00 11/23/24 18:36 0.5 MG Pantoprazole Sodium 40 mg DAILY@0600 PO 11/12/24 06:00 11/23/24 05:46 40 MG Metoprolol Tartrate 12.5 mg BID PO 11/12/24 10:00 11/22/24 21:34 12.5 MG Meropenem 50 ml @ 17 mls/hr Q12HR IV 11/12/24 22:00 UNV Apixaban 5 mg BID PO 11/13/24 22:00 11/23/24 09:27 5 MG Amiodarone HCl 200 mg Q12HR PO 11/14/24 10:00 11/23/24 09:27 200 MG Furosemide 40 mg DAILY PO 11/19/24 10:00 UNV Furosemide 40 mg DAILY PO 11/19/24 10:00 11/22/24 09:25 40 MG Fluconazole 400 mg DAILY PO 11/21/24 10:00 11/23/24 09:28 400 MG laboratory and microbiology Laboratory Tests 11/22/24 08:36 11/21/24 06:07 Test 11/21/24 06:07 Range/Units Serum Glucose 103 74-106 mg/dL Assessment/Plan Impression: Acute hypoxic respiratory failure Dependence on supplemental oxygen Sepsis Pneumonia Lactic acidosis Chronic atrial fibrillation Acute kidney injury Events: Low oxygen requirements On room air No acute events Labs and imaging reviewed Management Continue bronchodilators Completed antibiotics On antifungals Incentive spirometry Diurese with Lasix Monitor renal function Monitor electrolytes. Supplement as necessary. Monitor ins and outs. Continue PT. Protonix for GI prophylaxis Lovenox for DVT prophylaxis Dietary Evaluation Review Recommendations by RD: Protein Supplementation Comments: 1) Consider changing from mechanical soft cardiac to mechanical soft hepatic 80g Pro diet 2) Initiate NutriHep qd 3) Encourage optimal PO intake 4) Refer to outpatient RD for weight management 5) Follow-up with cardiology, hepatology, and nephrology 6) Follow-up with mental health social worker r/t ETOH cesastion 7) Continue to monitor I&O, labs, and skin integrity Expected Outcomes/Goals: 1) appetite and labs to improve 2) f/u in 3-5 days Plan discussed with: Patient DENZEL ZAPATA MD Nov 23, 2024 21:14
[2024-11-24] VITALS (17 sets, daily range): BP systolic 104–131; BP diastolic 61–80; PULSE 61–91; RESP 16–20; TEMP 97.9–98.7; O2SAT 93–100
--- NOTE | 2024-11-24 09:15 | DVHPNRES ---
Progress Note Date Seen: Nov 24, 2024 Resident Creating Document: SHARYN YI RESIDENT Medical Necessity Reason Pt with a Central, PICC or Fol: No Reason for crowell catheter: Strict I&O Subjective Review of Systems Patient was seen and examined on the bedside. He is alert and oriented x3 and on room air. Mentioned feeling better. Patient is discharged but awaiting for SNF placement . Objective vital signs Vital Sign Date Time Temp Pulse Resp B/P (MAP) Pulse Ox O2 Delivery O2 Flow Rate FiO2 11/24/24 08:04 98.6 84 18 127/73 (91) 94 98.6 11/24/24 06:53 Room Air* 0 21 Total Intake and Output 11/23/24 11/23/24 11/24/24 15:00 23:00 07:00 Intake Total 520 ml 450 ml Output Total 1 ml 601 ml Balance 519 ml -151 ml medications Current Medications Medications Dose Ordered Sig/Dennis Route Start Time Stop Time Status Last Admin Dose Admin Ondansetron HCl 4 mg Q4HP PRN IV 11/10/24 09:45 Multivitamins/ Minerals 1 tab DAILY PO 11/10/24 10:15 11/23/24 09:27 1 TAB Thiamine HCl 100 mg DAILY PO 11/10/24 10:15 11/23/24 09:28 100 MG Folic Acid 1 mg DAILY PO 11/10/24 10:15 11/23/24 09:28 1 MG Albuterol 2.5 mg Q4HWA [facility] 11/11/24 06:00 11/24/24 06:53 2.5 MG Ipratropium [place] 0.5 mg Q4HWA [facility] 11/11/24 06:00 11/24/24 06:53 0.5 MG Pantoprazole Sodium 40 mg DAILY@0600 PO 11/12/24 06:00 11/24/24 05:48 40 MG Metoprolol Tartrate 12.5 mg BID PO 11/12/24 10:00 11/23/24 21:46 12.5 MG Meropenem 50 ml @ 17 mls/hr Q12HR IV 11/12/24 22:00 UNV Apixaban 5 mg BID PO 11/13/24 22:00 11/23/24 21:45 5 MG Amiodarone HCl 200 mg Q12HR PO 11/14/24 10:00 11/23/24 21:45 200 MG Furosemide 40 mg DAILY PO 11/19/24 10:00 UNV Furosemide 40 mg DAILY PO 11/19/24 10:00 11/22/24 09:25 40 MG Fluconazole 400 mg DAILY PO 11/21/24 10:00 11/23/24 09:28 400 MG Examination Physical examination: General Appearance: Alert, Oriented X3, Cooperative, mild distress. HEENT: Atraumatic, PERRLA, EOMI, Mucous membrane moist/pink Respiratory: Left sided slightly decreased breath sound and ronchi. Cardiovascular: Irregular rate, Normal S1, Normal S2, No murmurs, no chest wall tenderness Abdominal: Normal bowel sounds, Soft, No tenderness, No hepatospenomegaly, No masses Extremities: Trace pedal edema, No clubbing, No cyanosis, Normal pulses, No tenderness/swelling Skin: No rashes, No breakdown, No significant lesion Neuro: Normal speech, Strength at 5/5 X4 ext, Normal tone, Sensation intact, Cranial nerves 3-12 NL, Reflexes 2+ Psych/Mental Status: Mental status NL, Mood N laboratory and microbiology Laboratory Tests 11/22/24 08:36 11/21/24 06:07 Test 11/21/24 06:07 Range/Units Serum Glucose 103 74-106 mg/dL Microbiology Date/Time Source Procedure Growth Status 11/14/24 09:32 Sputum Gram Stain - Final Complete 11/14/24 09:32 Respiratory Culture - Final Presumptive Roger albicans Complete 11/12/24 12:50 Blood Blood Culture - Final NO GROWTH AFTER 5 DAYS OF INCUBATION. Complete 11/10/24 18:02 Nose MRSA Screen - Final Complete 11/10/24 18:02 Urine - [place] Urine Culture - Final Complete Labs and/or images reviewed: Labs reviewed by me, Image(s) reviewed by me Problem List/Assessment/Plan Problem List/Assessment/Plan Assessment and plan: # Acute metabolic encephalopathy due to sepsis # Septic Shock secondary to pneumonia # Atrial fibrillation with RVR and secondary hypercoagulable state #NSTEMI type 2 likely secondary to above - initial EKG revealed AFib with RVR - Troponin trends are 109>104>92 - cardiology on board - [id number]- VASc score 3 and HAS BLED score 2 - Metoprolol 12.5 mg p.o. b.i.d. and amiodarone 200 mg p.o. b.i.d. - Eloquis 5 mg bid # Possible aspiration pneumonia # Possible gram positive/Gram-negative pneumonia # Sepsis with septic shock likely due to above # Bacteremia likely due to sepsis # Lactic acidosis likely due to sepsis - CT chest showed left lower lobe consolidation, suggestive of infectious process - chest x-ray on 0 / 5 showed left-sided consolidation, worse than the previous x-ray - Medneb with ipratropium and albuterol q.4 hours - Resp culture showed roger albicans - Fluconazole 400 mg po daily - pulmonology on board # Hyperbilirubinemia with transaminitis likely due to sepsis # Coagulopathy likely due to sepsis # Mildly elevated lipase # CORINA secondary to hemodynamically mediated/VMN resolved - Lasix 40 mg po daily - Avoid nephrotoxic medication - strict I&O # Obesity class 1, BMI 34.7 kg/m2 # Moderate protein calorie malnutrition, albumin 2.8 DIET: Cardiac diet DVT prophylax: Eloquis GI prophylaxis: Protonix Bowel regimen: Code status: Full code LINES/DRAINS/ACCESS: IV access: Peripheral line placed on 08/02 Case discussed with Plan discussed with: Patient, Other (RN) Dietary Evaluation Review Recommendations by RD: Protein Supplementation Comments: 1) Consider changing from mechanical soft cardiac to mechanical soft hepatic 80g Pro diet 2) Initiate NutriHep qd 3) Encourage optimal PO intake 4) Refer to outpatient RD for weight management 5) Follow-up with cardiology, hepatology, and nephrology 6) Follow-up with elementary school social worker r/t ETOH cesastion 7) Continue to monitor I&O, labs, and skin integrity Expected Outcomes/Goals: 1) appetite and labs to improve 2) f/u in 3-5 days Date of Service: Nov 24, 2024 Billing Provider: TOMAS NICOLE MD Common Visit Codes: [id number] INP/OBS CARE(MOD) SHARYN YI RESIDENT Nov 24, 2024 09:15 TOMAS NICOLE MD Nov 27, 2024 15:54
--- NOTE | 2024-11-24 16:58 | DVHPN2 ---
Progress Note - Dictate Date Seen: Nov 24, 2024 Medical Necessity Reason Pt with a Central, PICC or Fol: No Reason for crowell catheter: Strict I&O vital signs Vital Sign Date Time Temp Pulse Resp B/P (MAP) Pulse Ox O2 Delivery O2 Flow Rate FiO2 11/24/24 16:26 98.7 91 18 104/73 (83) 93 98.7 11/24/24 14:33 Room Air* 0 21 Total Intake and Output 11/23/24 11/23/24 11/24/24 15:00 23:00 07:00 Intake Total 520 ml 450 ml Output Total 1 ml 601 ml Balance 519 ml -151 ml medications Current Medications Medications Dose Ordered Sig/Dennis Route Start Time Stop Time Status Last Admin Dose Admin Ondansetron HCl 4 mg Q4HP PRN IV 11/10/24 09:45 Multivitamins/ Minerals 1 tab DAILY PO 11/10/24 10:15 11/24/24 10:22 1 TAB Thiamine HCl 100 mg DAILY PO 11/10/24 10:15 11/24/24 10:22 100 MG Folic Acid 1 mg DAILY PO 11/10/24 10:15 11/24/24 10:23 1 MG Albuterol 2.5 mg Q4HWA [facility] 11/11/24 06:00 11/24/24 14:33 2.5 MG Ipratropium [place] 0.5 mg Q4HWA [facility] 11/11/24 06:00 11/24/24 14:32 0.5 MG Pantoprazole Sodium 40 mg DAILY@0600 PO 11/12/24 06:00 11/24/24 05:48 40 MG Metoprolol Tartrate 12.5 mg BID PO 11/12/24 10:00 11/24/24 10:25 12.5 MG Meropenem 50 ml @ 17 mls/hr Q12HR IV 11/12/24 22:00 UNV Apixaban 5 mg BID PO 11/13/24 22:00 11/24/24 10:23 5 MG Amiodarone HCl 200 mg Q12HR PO 11/14/24 10:00 11/24/24 10:25 200 MG Furosemide 40 mg DAILY PO 11/19/24 10:00 UNV Furosemide 40 mg DAILY PO 11/19/24 10:00 11/24/24 10:24 40 MG Fluconazole 400 mg DAILY PO 11/21/24 10:00 11/24/24 10:23 400 MG laboratory and microbiology Laboratory Tests 11/22/24 08:36 11/21/24 06:07 Test 11/21/24 06:07 Range/Units Serum Glucose 103 74-106 mg/dL Assessment/Plan Impression: Acute hypoxic respiratory failure Dependence on supplemental oxygen Sepsis Pneumonia Lactic acidosis Chronic atrial fibrillation Acute kidney injury Events: Low oxygen requirements On room air No distress Labs and imaging reviewed Management Continue bronchodilators Completed antibiotics On antifungals Incentive spirometry Diurese with Lasix Monitor renal function Monitor electrolytes. Supplement as necessary. Monitor ins and outs. Continue PT. Protonix for GI prophylaxis Lovenox for DVT prophylaxis Dietary Evaluation Review Recommendations by RD: Protein Supplementation Comments: 1) Consider changing from mechanical soft cardiac to mechanical soft hepatic 80g Pro diet 2) Initiate NutriHep qd 3) Encourage optimal PO intake 4) Refer to outpatient RD for weight management 5) Follow-up with cardiology, hepatology, and nephrology 6) Follow-up with propagation worker r/t ETOH cesastion 7) Continue to monitor I&O, labs, and skin integrity Expected Outcomes/Goals: 1) appetite and labs to improve 2) f/u in 3-5 days Plan discussed with: Patient DENZEL ZAPATA MD Nov 24, 2024 16:58
[2024-11-25] VITALS (18 sets, daily range): BP systolic 100–126; BP diastolic 65–78; PULSE 61–89; RESP 12–19; TEMP 97.8–98.4; O2SAT 93–100
[2024-11-25 06:32] LABS: Hematocrit 30.9 % (41.0-53.0); Hemoglobin 10.4 g/dL (13.5-17.5); Mean Corpuscular Hemoglobin 29.3 pg (28.0-32.0); Mean Corpuscular Volume 87.2 fL (80.0-100.0); Nucleated Red Blood Cells % 0.0 %
--- NOTE | 2024-11-25 10:30 | DVHPN2 ---
Progress Note - Dictate Date Seen: Nov 25, 2024 Medical Necessity Reason Pt with a Central, PICC or Fol: No Reason for crowell catheter: Strict I&O vital signs Vital Sign Date Time Temp Pulse Resp B/P (MAP) Pulse Ox O2 Delivery O2 Flow Rate FiO2 11/25/24 09:50 126/66 11/25/24 09:48 67 11/25/24 08:42 97.9 18 96 97.9 11/25/24 08:00 Room Air* 0 21 Total Intake and Output 11/24/24 11/24/24 11/25/24 15:00 23:00 07:00 Intake Total 580 ml 660 ml Output Total 1450 ml 650 ml Balance -870 ml 10 ml medications Current Medications Medications Dose Ordered Sig/Dennis Route Start Time Stop Time Status Last Admin Dose Admin Ondansetron HCl 4 mg Q4HP PRN IV 11/10/24 09:45 Multivitamins/ Minerals 1 tab DAILY PO 11/10/24 10:15 11/25/24 09:48 1 TAB Thiamine HCl 100 mg DAILY PO 11/10/24 10:15 11/25/24 09:49 100 MG Folic Acid 1 mg DAILY PO 11/10/24 10:15 11/25/24 09:48 1 MG Albuterol 2.5 mg Q4HWA [facility] 11/11/24 06:00 11/25/24 10:25 2.5 MG Ipratropium [place] 0.5 mg Q4HWA [facility] 11/11/24 06:00 11/25/24 10:25 0.5 MG Pantoprazole Sodium 40 mg DAILY@0600 PO 11/12/24 06:00 11/25/24 06:26 40 MG Metoprolol Tartrate 12.5 mg BID PO 11/12/24 10:00 11/25/24 09:48 12.5 MG Meropenem 50 ml @ 17 mls/hr Q12HR IV 11/12/24 22:00 UNV Apixaban 5 mg BID PO 11/13/24 22:00 11/25/24 09:51 5 MG Amiodarone HCl 200 mg Q12HR PO 11/14/24 10:00 11/25/24 09:50 200 MG Furosemide 40 mg DAILY PO 11/19/24 10:00 UNV Furosemide 40 mg DAILY PO 11/19/24 10:00 11/25/24 09:50 40 MG Fluconazole 400 mg DAILY PO 11/21/24 10:00 11/25/24 09:49 400 MG laboratory and microbiology Laboratory Tests 11/25/24 05:59 11/21/24 06:07 Test 11/21/24 06:07 Range/Units Serum Glucose 103 74-106 mg/dL Assessment/Plan Impression: Acute hypoxic respiratory failure Dependence on supplemental oxygen Sepsis Pneumonia Lactic acidosis Chronic atrial fibrillation Acute kidney injury Events: Low oxygen requirements On room air No distress Labs and imaging reviewed Management Continue bronchodilators Completed antibiotics On antifungals Incentive spirometry Diurese with Lasix Monitor renal function Monitor electrolytes. Supplement as necessary. Monitor ins and outs. Continue PT. Protonix for GI prophylaxis Lovenox for DVT prophylaxis Dietary Evaluation Review Recommendations by RD: Protein Supplementation Comments: 1) Consider changing from mechanical soft cardiac to mechanical soft hepatic 80g Pro diet 2) Initiate NutriHep qd 3) Encourage optimal PO intake 4) Refer to outpatient RD for weight management 5) Follow-up with cardiology, hepatology, and nephrology 6) Follow-up with clinical social work therapist r/t ETOH cesastion 7) Continue to monitor I&O, labs, and skin integrity Expected Outcomes/Goals: 1) appetite and labs to improve 2) f/u in 3-5 days Plan discussed with: Other (r) DENZEL ZAPATA MD Nov 25, 2024 10:30
--- NOTE | 2024-11-25 13:57 | DVHPNRES ---
Progress Note Date Seen: Nov 25, 2024 Resident Creating Document: SHARYN YI RESIDENT Medical Necessity Reason Pt with a Central, PICC or Fol: No Reason for crowell catheter: Strict I&O Subjective Review of Systems Patient was seen and examined on the bedside. He is alert and oriented x3 and on room air. Mentioned feeling better. Auth approved by the insurance and patient is going to SNF today. Objective vital signs Vital Sign Date Time Temp Pulse Resp B/P (MAP) Pulse Ox O2 Delivery O2 Flow Rate FiO2 11/25/24 13:00 97.9 89 16 119/76 (90) 95 97.9 11/25/24 10:25 Room Air* 0 21 Total Intake and Output 11/24/24 11/24/24 11/25/24 15:00 23:00 07:00 Intake Total 580 ml 660 ml Output Total 1450 ml 650 ml Balance -870 ml 10 ml medications Current Medications Medications Dose Ordered Sig/Dennis Route Start Time Stop Time Status Last Admin Dose Admin Ondansetron HCl 4 mg Q4HP PRN IV 11/10/24 09:45 Multivitamins/ Minerals 1 tab DAILY PO 11/10/24 10:15 11/25/24 09:48 1 TAB Thiamine HCl 100 mg DAILY PO 11/10/24 10:15 11/25/24 09:49 100 MG Folic Acid 1 mg DAILY PO 11/10/24 10:15 11/25/24 09:48 1 MG Albuterol 2.5 mg Q4HWA [facility] 11/11/24 06:00 11/25/24 10:25 2.5 MG Ipratropium [place] 0.5 mg Q4HWA [facility] 11/11/24 06:00 11/25/24 10:25 0.5 MG Pantoprazole Sodium 40 mg DAILY@0600 PO 11/12/24 06:00 11/25/24 06:26 40 MG Metoprolol Tartrate 12.5 mg BID PO 11/12/24 10:00 11/25/24 09:48 12.5 MG Meropenem 50 ml @ 17 mls/hr Q12HR IV 11/12/24 22:00 UNV Apixaban 5 mg BID PO 11/13/24 22:00 11/25/24 09:51 5 MG Amiodarone HCl 200 mg Q12HR PO 11/14/24 10:00 11/25/24 09:50 200 MG Furosemide 40 mg DAILY PO 11/19/24 10:00 UNV Furosemide 40 mg DAILY PO 11/19/24 10:00 11/25/24 09:50 40 MG Fluconazole 400 mg DAILY PO 11/21/24 10:00 11/25/24 09:49 400 MG Examination Physical examination: General Appearance: Alert, Oriented X3, Cooperative, mild distress. HEENT: Atraumatic, PERRLA, EOMI, Mucous membrane moist/pink Respiratory: Left sided slightly decreased breath sound. Cardiovascular: Irregular rate, Normal S1, Normal S2, No murmurs, no chest wall tenderness Abdominal: Normal bowel sounds, Soft, No tenderness, No hepatospenomegaly, No masses Extremities: Trace pedal edema, No clubbing, No cyanosis, Normal pulses, No tenderness/swelling Skin: No rashes, No breakdown, No significant lesion Neuro: Normal speech, Strength at 5/5 X4 ext, Normal tone, Sensation intact, Cranial nerves 3-12 NL, Reflexes 2+ Psych/Mental Status: Mental status NL, Mood N laboratory and microbiology Laboratory Tests 11/25/24 05:59 11/21/24 06:07 Test 11/21/24 06:07 Range/Units Serum Glucose 103 74-106 mg/dL Microbiology Date/Time Source Procedure Growth Status 11/14/24 09:32 Sputum Gram Stain - Final Complete 11/14/24 09:32 Respiratory Culture - Final Presumptive Roger albicans Complete 11/12/24 12:50 Blood Blood Culture - Final NO GROWTH AFTER 5 DAYS OF INCUBATION. Complete 11/10/24 18:02 Nose MRSA Screen - Final Complete 11/10/24 18:02 Urine - [place] Urine Culture - Final Complete Labs and/or images reviewed: Labs reviewed by me, Image(s) reviewed by me Problem List/Assessment/Plan Problem List/Assessment/Plan Assessment and plan: # Acute metabolic encephalopathy due to sepsis # Septic Shock secondary to pneumonia # Atrial fibrillation with RVR and secondary hypercoagulable state #NSTEMI type 2 likely secondary to above - initial EKG revealed AFib with RVR - Troponin trends are 109>104>92 - cardiology on board - [id number]- VASc score 3 and HAS BLED score 2 - Metoprolol 12.5 mg p.o. b.i.d. and amiodarone 200 mg p.o. b.i.d. - Eloquis 5 mg bid # Possible aspiration pneumonia # Possible gram positive/Gram-negative pneumonia # Sepsis with septic shock likely due to above # Bacteremia likely due to sepsis # Lactic acidosis likely due to sepsis - CT chest showed left lower lobe consolidation, suggestive of infectious process - chest x-ray on 0 7/0 5 showed left-sided consolidation, worse than the previous x-ray - Medneb with ipratropium and albuterol q.4 hours - Resp culture showed roger albicans - Fluconazole 400 mg po daily - pulmonology on board # Hyperbilirubinemia with transaminitis likely due to sepsis # Coagulopathy likely due to sepsis # Mildly elevated lipase # [place] secondary to hemodynamically mediated/VMN resolved - Lasix 40 mg po daily - Avoid nephrotoxic medication - strict I&O # Obesity class 1, BMI 34.7 kg/m2 # Moderate protein calorie malnutrition, albumin 2.8 DIET: Cardiac diet DVT prophylax: Eloquis GI prophylaxis: Protonix Bowel regimen: Code status: Full code Case discussed with Plan discussed with: Patient, Other My Orders My Orders Orders - SHARYN YI Procedure Category Date Status Time * Political Cartoonist CONS 11/25/24 Transmitted Consult Discharge DISCHARGE 11/25/24 Transmitted 12:54 Dietary Evaluation Review Recommendations by RD: Protein Supplementation Comments: 1) Consider changing from mechanical soft cardiac to mechanical soft hepatic 80g Pro diet 2) Initiate NutriHep qd 3) Encourage optimal PO intake 4) Refer to outpatient RD for weight management 5) Follow-up with cardiology, hepatology, and nephrology 6) Follow-up with mental health social worker r/t ETOH cesastion 7) Continue to monitor I&O, labs, and skin integrity Expected Outcomes/Goals: 1) appetite and labs to improve 2) f/u in 3-5 days Date of Service: Nov 25, 2024 Billing Provider: TOMAS NICOLE MD Common Visit Codes: [id number] INP/OBS CARE(MOD) SHARYN YI RESIDENT Nov 25, 2024 13:57 TOMAS NICOLE MD Nov 27, 2024 16:04
[2024-11-26] VITALS (12 sets, daily range): BP systolic 100–136; BP diastolic 58–87; PULSE 66–95; RESP 16–18; TEMP 97.8–98.7; O2SAT 93–99
--- NOTE | 2024-11-26 14:29 | DVHPN2 ---
Progress Note - Dictate Date Seen: Nov 26, 2024 Medical Necessity Reason Pt with a Central, PICC or Fol: No Reason for crowell catheter: Strict I&O vital signs Vital Sign Date Time Temp Pulse Resp B/P (MAP) Pulse Ox O2 Delivery O2 Flow Rate FiO2 11/26/24 14:25 94 Room Air 11/26/24 14:25 66 18 11/26/24 14:25 0 21 11/26/24 13:00 98.7 100/58 (72) 98.7 Total Intake and Output 11/25/24 11/25/24 11/26/24 15:00 23:00 07:00 Intake Total 1200 ml 300 ml Output Total 760 ml Balance 1200 ml -460 ml medications Current Medications Medications Dose Ordered Sig/Dennis Route Start Time Stop Time Status Last Admin Dose Admin Ondansetron HCl 4 mg Q4HP PRN IV 11/10/24 09:45 Multivitamins/ Minerals 1 tab DAILY PO 11/10/24 10:15 11/26/24 09:06 1 TAB Thiamine HCl 100 mg DAILY PO 11/10/24 10:15 11/26/24 09:07 100 MG Folic Acid 1 mg DAILY PO 11/10/24 10:15 11/26/24 09:07 1 MG Albuterol 2.5 mg Q4HWA [facility] 11/11/24 06:00 11/26/24 14:25 2.5 MG Ipratropium [place] 0.5 mg Q4HWA [facility] 11/11/24 06:00 11/26/24 14:25 0.5 MG Pantoprazole Sodium 40 mg DAILY@0600 PO 11/12/24 06:00 11/26/24 06:33 40 MG Metoprolol Tartrate 12.5 mg BID PO 11/12/24 10:00 11/26/24 09:11 12.5 MG Meropenem 50 ml @ 17 mls/hr Q12HR IV 11/12/24 22:00 UNV Apixaban 5 mg BID PO 11/13/24 22:00 11/26/24 09:06 5 MG Amiodarone HCl 200 mg Q12HR PO 11/14/24 10:00 11/26/24 09:06 200 MG Furosemide 40 mg DAILY PO 11/19/24 10:00 UNV Furosemide 40 mg DAILY PO 11/19/24 10:00 11/26/24 09:12 40 MG Fluconazole 400 mg DAILY PO 11/21/24 10:00 11/26/24 09:06 400 MG laboratory and microbiology Laboratory Tests 11/25/24 05:59 11/21/24 06:07 Test 11/21/24 06:07 Range/Units Serum Glucose 103 74-106 mg/dL Assessment/Plan Impression: Acute hypoxic respiratory failure Dependence on supplemental oxygen Sepsis Pneumonia Lactic acidosis Chronic atrial fibrillation Acute kidney injury Events: Low oxygen requirements On room air No acute events Labs and imaging reviewed Management Continue bronchodilators Completed antibiotics On antifungals Incentive spirometry Diurese with Lasix Monitor renal function Monitor electrolytes. Supplement as necessary. Monitor ins and outs. Continue PT. Protonix for GI prophylaxis Lovenox for DVT prophylaxis Dietary Evaluation Review Recommendations by RD: Protein Supplementation Comments: 1) Consider changing from mechanical soft cardiac to mechanical soft hepatic 80g Pro diet 2) Initiate NutriHep qd 3) Encourage optimal PO intake 4) Refer to outpatient RD for weight management 5) Follow-up with cardiology, hepatology, and nephrology 6) Follow-up with social media executive r/t ETOH cesastion 7) Continue to monitor I&O, labs, and skin integrity Expected Outcomes/Goals: 1) appetite and labs to improve 2) f/u in 3-5 days Plan discussed with: Patient DENZEL ZAPATA MD Nov 26, 2024 14:29
--- NOTE | 2024-11-26 15:14 | DVHPNRES ---
Progress Note Date Seen: Nov 26, 2024 Resident Creating Document: JOHN ANTHONY RESIDENT Medical Necessity Reason Pt with a Central, PICC or Fol: No Reason for crowell catheter: Strict I&O Subjective Review of Systems Patient is a 79-year-old male with prior medical history of HTN and afib who presented to the ED with chief complaint of altered level of mentation and shortness of breath. Patient's family called 911 due to patient being ill for the past week with intermittent shortness of breath. Upon EMS arrival, slight fever with 100 F, patient's vital signs were stable, HR 120-130, BP 111 systolic. Patient was given breathing treatment in route, resolved SOB. In route, patient's HR was 226, a-fib/RVR, BP 90 systolic, IV fluids were given . Initial labs show WBCs 31.2, hemoglobin 15.1, hematocrit 45.3, platelets 333, sodium 141, potassium 5, BUN 89, creatinine 2.23, lactic acid at 3.7, AST 339, ALT 122, alkaline phosphatase 147. Chest x-ray shows patchy and confluent airspace opacities in the mid to lower left lung which could reflect pneumonia. Sepsis protocol was initiated patient was admitted for further workup and antibiotic treatment. Patient seen at bedside. Patient states he feels well, sleeping well, and is tolerating diet. Is able to ambulate more with the help of his physical therapist and wishes to be able to advance in his exercises. Currently denies fever, nausea, chest pain, cough, shortness of breath, and palpitations. Vitals have remained stable. He has been accepted at [facility] for PT. Transport has been authorized and he will be able to leave today. Review of Systems: Constitutional: Denies weight loss, fever and chills. HEENT: Denies changes in vision and hearing. Respiratory: Denies shortness of breath and cough Cardiovascular: Denies chest discomfort or palpitations GI: Denies abdominal distention, abdominal pain, diarrhea : Denies dysuria and urinary frequency. Musculoskeletal: Refers weakness likely due to deconditioning Skin: Denies rash and pruritus. Neurological: denies dizziness headache vision or hearing problems Objective vital signs Vital Sign Date Time Temp Pulse Resp B/P (MAP) Pulse Ox O2 Delivery O2 Flow Rate FiO2 11/26/24 14:32 81 18 99 11/26/24 14:25 Room Air 11/26/24 14:25 0 21 11/26/24 13:00 98.7 100/58 (72) 98.7 Total Intake and Output 11/25/24 11/25/24 11/26/24 15:00 23:00 07:00 Intake Total 1200 ml 300 ml Output Total 760 ml Balance 1200 ml -460 ml medications Current Medications Medications Dose Ordered Sig/Dennis Route Start Time Stop Time Status Last Admin Dose Admin Ondansetron HCl 4 mg Q4HP PRN IV 11/10/24 09:45 Multivitamins/ Minerals 1 tab DAILY PO 11/10/24 10:15 11/26/24 09:06 1 TAB Thiamine HCl 100 mg DAILY PO 11/10/24 10:15 11/26/24 09:07 100 MG Folic Acid 1 mg DAILY PO 11/10/24 10:15 11/26/24 09:07 1 MG Albuterol 2.5 mg Q4HWA [facility] 11/11/24 06:00 11/26/24 14:25 2.5 MG Ipratropium [place] 0.5 mg Q4HWA [facility] 11/11/24 06:00 11/26/24 14:25 0.5 MG Pantoprazole Sodium 40 mg DAILY@0600 PO 11/12/24 06:00 11/26/24 06:33 40 MG Metoprolol Tartrate 12.5 mg BID PO 11/12/24 10:00 11/26/24 09:11 12.5 MG Meropenem 50 ml @ 17 mls/hr Q12HR IV 11/12/24 22:00 UNV Apixaban 5 mg BID PO 11/13/24 22:00 11/26/24 09:06 5 MG Amiodarone HCl 200 mg Q12HR PO 11/14/24 10:00 11/26/24 09:06 200 MG Furosemide 40 mg DAILY PO 11/19/24 10:00 UNV Furosemide 40 mg DAILY PO 11/19/24 10:00 11/26/24 09:12 40 MG Fluconazole 400 mg DAILY PO 11/21/24 10:00 11/26/24 09:06 400 MG Examination General Appearance: Alert, Oriented X3, Cooperative, mild distress. HEENT: Atraumatic, PERRLA, EOMI, Mucous membrane moist/pink Respiratory: Left sided slightly decreased breath sound. Cardiovascular: Irregular rate, Normal S1, Normal S2, No murmurs, no chest wall tenderness Abdominal: Normal bowel sounds, Soft, No tenderness, No hepatospenomegaly, No masses Extremities: Trace pedal edema, No clubbing, No cyanosis, Normal pulses, No tenderness/swelling Skin: No rashes, No breakdown, No significant lesion Neuro: Normal speech, Strength at 5/5 X4 ext, Normal tone, Sensation intact, Cranial nerves 3-12 NL, Reflexes 2+ Psych/Mental Status: Mental status NL, Mood N laboratory and microbiology Laboratory Tests 11/25/24 05:59 11/21/24 06:07 Test 11/21/24 06:07 Range/Units Serum Glucose 103 74-106 mg/dL Microbiology Date/Time Source Procedure Growth Status 11/14/24 09:32 Sputum Gram Stain - Final Complete 11/14/24 09:32 Respiratory Culture - Final Presumptive Roger albicans Complete 11/12/24 12:50 Blood Blood Culture - Final NO GROWTH AFTER 5 DAYS OF INCUBATION. Complete 11/10/24 18:02 Nose MRSA Screen - Final Complete 11/10/24 18:02 Urine - Crowell [place] Urine Culture - Final Complete Problem List/Assessment/Plan Problem List/Assessment/Plan Assessment and plan: # Acute metabolic encephalopathy due to sepsis # Septic Shock secondary to pneumonia # Atrial fibrillation with RVR and secondary hypercoagulable state #NSTEMI type 2 likely secondary to above - initial EKG revealed AFib with RVR - Troponin trends are 109>104>92 - cardiology on board - [id number]- VASc score 3 and HAS BLED score 2 - Metoprolol 12.5 mg p.o. b.i.d. and amiodarone 200 mg p.o. b.i.d. - Eloquis 5 mg bid # Possible aspiration pneumonia # Possible gram positive/Gram-negative pneumonia # Sepsis with septic shock likely due to above # Bacteremia likely due to sepsis # Lactic acidosis likely due to sepsis - CT chest showed left lower lobe consolidation, suggestive of infectious process - chest x-ray on 0 5 showed left-sided consolidation, worse than the previous x-ray - Medneb with ipratropium and albuterol q.4 hours - Resp culture showed roger albicans - Fluconazole 400 mg po daily - pulmonology on board # Hyperbilirubinemia with transaminitis likely due to sepsis # Coagulopathy likely due to sepsis # Mildly elevated lipase # CORINA secondary to hemodynamically mediated/VMN resolved - Lasix 40 mg po daily - Avoid nephrotoxic medication - strict I&O # Obesity class 1, 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 Plan discussed with: Patient My Orders My Orders Orders - JOHN ANTHONY RESIDENT Procedure Category Date Status Time Discharge DISCHARGE 11/26/24 Transmitted 10:42 Dietary Evaluation Review Recommendations by RD: Protein Supplementation Comments: 1) Consider changing from mechanical soft cardiac to mechanical soft hepatic 80g Pro diet 2) Initiate NutriHep qd 3) Encourage optimal PO intake 4) Refer to outpatient RD for weight management 5) Follow-up with cardiology, hepatology, and nephrology 6) Follow-up with protective services social worker r/t ETOH cesastion 7) Continue to monitor I&O, labs, and skin integrity Expected Outcomes/Goals: 1) appetite and labs to improve 2) f/u in 3-5 days Date of Service: Nov 26, 2024 Billing Provider: TOMAS NICOLE MD Common Visit Codes: [id number] INP/OBS CARE(MOD) JOHN ANTHONY RESIDENT Nov 26, 2024 15:14 TOMAS NICOLE MD Nov 27, 2024 16:12
--- NOTE | 2024-11-28 07:53 | DVH ---
EXAM: XY CHEST PORTABLE DATE OF SERVICE: 11/17/2024 09:10 AM INDICATION: pneumonia TECHNIQUE: Frontal chest x-ray COMPARISON: XY CHEST PORTABLE on DOS: 11/14/24, XY CHEST PORTABLE on DOS: 11/13/24, XY CHEST PORTABLE on DOS: 11/12/24, XY CHEST PORTABLE on DOS: 11/09/24 FINDINGS: Lines and Tubes: None Lungs: Multifocal airspace disease, [id number], minimally decreased Pleura: Left-sided pleural effusion not excluded. No pneumothorax. Cardiomediastinal contours: Unremarkable Bones: Unremarkable IMPRESSION: Multifocal airspace disease, predominantly on the left, minimally improved. LL VENEGAS
== END 2024-11-26 15:30 | DRG 871 ==
LOC: ER 22:37 → EDUNIT# 22:37 → EDBD 22:37 → OVERFLOW 11-10 09:51 → ICU CENTRL 11-10 17:40 → TELE-CENTR 11-16 01:35 → CENTRAL 11-19 00:40 → TELE-CENTR 11-20 10:32 → CENTRAL 11-22 16:40
PROVIDERS: ADMIT Student in an Organized Health Care Education/Training Program; ATTEND Student in an Organized Health Care Education/Training Program
PROC: 5A09357 Assistance with Respiratory Ventilation, Less than 24 Consecutive Hours, Continuous Positive Airway Pressure (ICD-10-PCS; principal; 2024-11-12)
DX: A41.59 Other Gram-negative sepsis (principal); G93.41 Metabolic encephalopathy; I21.A1 Myocardial infarction type 2; J15.69 Pneumonia due to other Gram-negative bacteria; J96.01 Acute respiratory failure with hypoxia; J69.0 Pneumonitis due to inhalation of food and vomit; R65.21 Severe sepsis with septic shock; N17.0 Acute kidney failure with tubular necrosis; J15.9 Unspecified bacterial pneumonia; J44.0 Chronic obstructive pulmonary disease with (acute) lower respiratory infection; E87.20 Acidosis, unspecified; I48.20 Chronic atrial fibrillation, unspecified; E44.0 Moderate protein-calorie malnutrition; D68.69 Other thrombophilia; Z20.822 Contact with and (suspected) exposure to COVID-19; K74.60 Unspecified cirrhosis of liver; R73.9 Hyperglycemia, unspecified; E66.9 Obesity, unspecified; I10 Essential (primary) hypertension; E87.5 Hyperkalemia; E03.9 Hypothyroidism, unspecified; K70.10 Alcoholic hepatitis without ascites; K72.90 Hepatic failure, unspecified without coma; F10.20 Alcohol dependence, uncomplicated; E66.811 Obesity, class 1; R74.01 Elevation of levels of liver transaminase levels; Z99.81 Dependence on supplemental oxygen; Z91.199 Patient's noncompliance with other medical treatment and regimen due to unspecified reason; Z68.34 Body mass index [BMI] 34.0-34.9, adult; Z79.899 Other long term (current) drug therapy; Y90.9 Presence of alcohol in blood, level not specified
CPT/HCPCS: 36415; 36600; 71045; 71250; 74176; 76705; 80048; 80053; 80074; 80076; 80202; 80307; 81001; 82140; 82248; 82306; 82570; 82805; 83036; 83605; 83690; 83735; 83880; 83970; 84156; 84300; 84439; 84443; 84484; 85007; 85025; 85027; 85610; 86141; 87040; 87070; 87077; 87081; 87086; 87205; 87426; 87804; 93005; 93306; 94640; 96365; 97110; 97116; 97163; 97164; 97530; G0378; J0692; J1450; J2185; J2543

== ENCOUNTER 2025-04-03 15:30 | Emergency (ER) | payer OTHER ==
[~2025-04-03] VITALS: Ht 167.6 cm; Wt 87.6 kg
--- NOTE | 2025-04-03 16:29 | ED.PDOC ---
History of Present Illness HPI Comments 80 year old male with PMHx a-fib, HTN presents with the ED with a chief complaint of confusion onset 2 days. Patient states he woke up 3 days ago experiencing RT arm and RT leg tingling, confusion, blurred vision, concerned for possible CVA. He is currently on Eliquis. Denies chest pain, shortness of breath, head injury, dizziness, nausea, vomiting, diarrhea, fever, chills, sore throat, cough, dysuria, hematuria. No other symptoms or modifying factors present at this time. Chief Complaint: Confusion Time Seen by MD: 16:10 Reviewed Notes: Nurses Notes, Medications, Allergies Allergies: Coded Allergies: NO KNOWN ALLERGIES (Unverified , 11/09/24) Home Meds No Active Prescriptions or Reported Meds Information Source: Patient, Spouse Mode of Arrival: Ambulatory Severity: Moderate Timing: Days Duration: Since onset Prehospital treatment: None Past Medical History PAST MEDICAL HISTORY: AFIB, HTN Surgical History: Denies all surgeries Family History Family History: Reviewed,noncontributory to illness, No family hx of Cancer, No family hx of DM, No family hx of Heart luis, No family hx of HTN, No family hx ofKidney luis, No family hx of Liver luis, No family hx of Lung luis, No family hx of Stroke Social History Smoker: Non-Smoker Alcohol: Denies ETOH Use Drugs: Denies Drug Use Lives In: Home Constitutional: denies: chills, diaphoresis, fatigue, fever, malaise, sweats, weakness, others EENTM: reports: blurred vision; denies: double vision, ear bleeding, ear discharge, ear drainage, ear pain, ear ringing, eye pain, eye redness, hearing loss, mouth pain, mouth swelling, nasal discharge, nose bleeding, nose congestion, nose pain, photophobia, tearing, throat pain, throat swelling, voice changes, others Respiratory: denies: cough, hemoptysis, orthopnea, SOB at rest, shortness of breath, SOB with excertion, stridor, wheezing, others Cardiovascular: denies: chest pain, dizzy spells, diaphoresis, Dyspnea on exertion, edema, irregular heart beat, left arm pain, lightheadedness, palpitations, PND, syncope, others Gastrointestinal: denies: abdomen distended, abdominal pain, blood streaked bowels, constipated, diarrhea, dysphagia, difficulty swallowing, hematemesis, melena, nausea, poor appetite, poor fluid intake, rectal bleeding, rectal pain, vomiting, others Genitourinary: denies: burning, dysuria, flank pain, frequency, hematuria, incontinence, penile discharge, penile sore, pain, testicle pain, testicle swelling, urgency, others Neurological: reports: tingling (RT arm, RT leg), others (confusion); denies: dizziness, fainting, headache, left sided numbness, left sided weakness, numbness, paresthesia, pre-existing deficit, right sided numbness, right sided weakness, seizure, speech problems, tremors, weakness Musculoskeletal: denies: back pain, gout, joint pain, joint swelling, muscle pain, muscle stiffness, neck pain, others Integumetry: denies: bruises, change in color, change in hair/nails, dryness, laceration, lesions, lumps, rash, wounds, others Allergic/Immunocompromised: denies: Difficulty Healing, Frequent Infections, Hives, Itching, others Hematologic/Lymphatic: denies: anemia, blood clots, easy bleeding, easy bruising, swollen glands, others Endocrine: denies: excessive hunger, excessive sweating, excessive thirst, excessive urination, flushing, intolerance to cold, intolerance to heat, unexplained weight gain, unexplained weight loss, others Psychiatric: denies: anxiety, bipolar disorder, depression, hopeless, panic disorder, schizophrenia, sleepless, suicidal, others All Other Systems: Reviewed and Negative Physical Exam General Appearance: No Apparent Distress HEENT: Normal ENT Inspection, Pharynx Normal, TMs Normal Neck: Full Range of Motion, Non-Tender, Normal, Normal Inspection Respiratory: Chest Non-Tender, Lungs Clear, No Accessory Muscle Use, No Respiratory Distress, Normal Breath Sounds Cardiovascular: Irregular, No Edema, No JVD, No Gallop Breast Exam: Deferred Gastrointestinal: No Organomegaly, Non Tender, No Pulsatile Mass, Normal Bowel Sounds, Soft Genitalia: Deferred Pelvic: Deferred Rectal: Deferred Extremities: No calf tenderness, Normal capillary refill, Normal inspection, Normal range of motion, Non-tender, No pedal edema Musculoskeletal : Apperance: Normal Neurologic: Alert, show dog trainer II-XII nml as Tested, No Motor Deficits, Normal Affect, Normal Mood, No Sensory Deficits Cerebellar Function: Normal Reflexes: Normal Skin: Dry, Normal Color, Warm Lymphatic: No Adenopathy Was a procedure done? Was a procedure done?: No Differential Dx Considerations may include: CVA, intracranial hemorrhage, electrolyte imbalance, generalized weakness X-Ray, Labs, Meds, VS Vital Signs Date Time Temp Pulse Resp B/P (MAP) Pulse Ox O2 Delivery O2 Flow Rate FiO2 04/03/25 19:37 81 18 97 Room Air* 0 21 04/03/25 19:37 97.5 81 18 112/78 (89) 97 97.5 04/03/25 15:34 98.5 92 18 163/99 97 98.5 Lab Test 04/03/25 16:48 04/03/25 16:45 Range/Units White Blood Count 7.3 4.4-10.8 10^3/uL Red Blood Count 5.37 4.5-5.90 10^6/uL Hemoglobin 15.3 13.5-17.5 g/dL Hematocrit 45.2 41.0-53.0 % Mean Corpuscular Volume 84.2 80.0-100.0 fL Mean Corpuscular Hemoglobin 28.6 28.0-32.0 pg Mean Corpuscular Hemoglobin Concent 33.9 32.0-36.0 g/dL Red Cell Distribution Width 14.4 H 11.8-14.3 % Platelet Count 239 140-450 10^3/uL Mean Platelet Volume 7.6 6.9-10.8 fL Neutrophils (%) (Auto) 64.2 37.0-80.0 % Lymphocytes (%) (Auto) 27.5 10.0-50.0 % Monocytes (%) (Auto) 7.0 0.0-12.0 % Eosinophils (%) (Auto) 0.6 0.0-7.0 % Basophils (%) (Auto) 0.7 0.0-2.0 % Neutrophils # (Auto) 4.7 1.6-8.6 10 ^3/uL Lymphocytes # (Auto) 2.0 0.4-5.4 10 ^3/uL Monocytes # (Auto) 0.5 0-1.3 10 ^3/uL Eosinophils # (Auto) 0 0-0.8 10 ^3/uL Basophils # (Auto) 0 0-0.2 10 ^3/uL Nucleated Red Blood Cells 0.0 % Sodium Level 142 136-145 mmol/L Potassium Level 4.6 3.5-5.1 mmol/L Chloride Level 104 98-107 mmol/L Carbon Dioxide Level 28 20-31 mmol/L Anion Gap 10 5-15 Blood Urea Nitrogen 21 9-23 mg/dL Creatinine 1.53 H 0.700-1.30 mg/dL Glomerular Filtration Rate Calc 46 >90 mL/min BUN/Creatinine Ratio 13.7 10.0-20.0 Serum Glucose 100 74-106 mg/dL Lactic Acid Level 1.0 0.4-2.0 mmol/L Calcium Level 9.9 8.7-10.4 mg/dL Total Bilirubin 0.7 0.2-1.0 mg/dL Aspartate Amino Transferase (AST) 20 13-40 U/L Alanine Aminotransferase (ALT) 13 7-40 U/L Alkaline Phosphatase 97 46-116 U/L Ammonia < 10 L 11-32 umol/L Total Protein 7.9 5.7-8.2 g/dL Albumin 4.6 3.2-4.8 g/dL Urine Color Yellow Yellow Urine Clarity Clear Clear Urine pH 6.0 5.0-9.0 Urine Specific [place] 1.021 1.001-1.035 Urine Protein Trace H Negative Urine Ketones Negative Negative Urine Blood Negative Negative /uL Urine Nitrite Negative Negative Urine Bilirubin Negative Negative Urine Urobilinogen Normal Negative mg/dL Urine Leukocyte Esterase Negative Negative /uL Urine RBC 3 0 - 3 /hpf Urine Microscopic WBC < 1 0-3 /HPF Urine Squamous Epithelial Cells None seen <5 /hpf Urine Bacteria None seen None Seen /hpf Urine Mucus Few None Seen Urine Glucose Normal Normal mg/dL Urine Opiates Screen Neg NEGATIVE Urine Fentanyl Screen Neg NEGATIVE Urine Barbiturates Screen Neg NEGATIVE Urine Phencyclidine Screen Neg NEGATIVE Urine Amphetamines Screen Neg NEGATIVE Urine Benzodiazepines Screen Neg NEGATIVE Urine Cocaine Screen Neg NEGATIVE Urine Cannabinoids Screen Neg NEGATIVE [address] [address] Ph: [phone] DIAGNOSTIC IMAGING Diagnostic Imaging Report : [id number] Signed PATIENT: HOLLI HOSKINS ACCT: [id number] UNIT: [id number] : 1945 LOC: ER ROOM / BED: / AGE / SEX: 80 / M ADM STATUS: REG ER SERVICE 1619 ORDERING PHYSICIAN: SAMUEL MASSEY PROCEDURE(s): HWOCT - HEAD WITHOUT CONTRAST REASON: confused ORDER NUMBER(s): [id number], ACCESSION NUMBER(s): [id number] CLINICAL HISTORY: confused TECHNIQUE: Helical scanning was performed of the head from the skull base to the vertex. Multiplanar reconstructions were performed. This exam was performed according to our departmental dose optimization program. Up-to-date CT equipment and radiation dose reduction techniques are utilized as appropriate. CTDI 59 DLP 1040 COMPARISON: None FINDINGS: There is no evidence for mass, mass effect, or extra-axial fluid collection. There is no hydrocephalus or midline shift. There is no effacement of the basal subarachnoid cisterns. There is intraparenchymal edema and sulcal effacement involving the left medial temporal and occipital lobes , compatible with acute VB NET PROGRAMMER territory infarct. There are foci of petechial hemorrhage. There is mild brain volume loss and chronic small vessel ischemic change. The imaged paranasal sinuses are clear. 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 ATED BY: ZIGGY READ MD DICTATED DATE/TIME: 04/03/251647 SIGNED BY: ZIGGY READ MD SIGNED DATE/TIME: 04/03/251647 CC: We did a re-evaluation of this patient. The patient has no weakness on either side. He is able to answer all questions appropriately. The urine tox is negative The urine test is negative for infection The patient's blood pressure has now come down to 112/78 without any use of medications The CBC and chemistry panel are within normal limits except for creatinine of 1.53 At this time, the patient is being transferred to [facility]. We have discussed the findings with the emergency department's physician and he is in agreement with the management. The patient is being given vitamin K because he is currently on Eliquis. 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 ATED BY: ZIGGY READ MD DICTATED DATE/TIME: 04/03/25 1648 Stat consult placed with Dr. Russo Images Reviewed?: Images reviewed and evaluated by me Time of 1ST Reevaluation: 16:40 Reevaluation 1ST: Unchanged Patient Education/Counseling: Diagnosis, Treatment, Prognosis Family Education/Counseling: Diagnosis, Treatment, Prognosis SEPSIS Sepsis Screen Date sepsis recognized/suspect: Apr 03, 2025 Time Sepsis recognized/suspect: 1536 Recent Procedure: No On Antibiotic Therapy: No Respiratory Rate >20: No Heart Rate >90: No Temp<36 C (96.8 F) or >38.3 C: No SBP <90 or MAP <65 mmHG: No New Acute Mental Status Change: No Is the patient on CPAP, BIPAP,: No Physician Orders Head Without Contrast (04/03/25 16:19) Imaging Transfer Request (04/03/25 21:03) Phytonadione (Vitamin K) (04/03/25 21:15) Vital Signs Date Time Temp Pulse Resp B/P (MAP) Pulse Ox O2 Delivery O2 Flow Rate FiO2 04/03/25 19:37 81 18 97 Room Air* 0 21 04/03/25 19:37 97.5 81 18 112/78 (89) 97 97.5 04/03/25 15:34 98.5 92 18 163/99 97 98.5 Laboratory Tests Test 04/03/25 16:48 Lactic Acid Level 1.0 mmol/L (0.4-2.0) White Blood Count 7.3 10^3/uL (4.4-10.8) Departure 1 Departure Time of Disposition: 18:26 Impression: Primary Impression: Intracranial hemorrhage Disposition: 51 HOSPICE/MEDICAL FACILITY Condition: Fair e-Prescriptions No Active Prescriptions or Reported Meds Critical Care Note Critical Care Time?: Yes (45 min-critical care time only) Stability Stability form required: Yes Stable for transfer: Intended for transfer, To designated facility Heart Score Heart Score: Heart Score Response (Comments) Value History N/A 0 EKG N/A 0 Age N/A 0 Risk Factors N/A 0 Troponin N/A 0 Total 0 I personally scribed for SAMUEL MASSEY ([email or web address]) on 04/03/25 at 16:29. Electronically submitted by Angelita Montana ([email or web address]). I personally scribed for SAMUEL MASSEY ([email or web address]) on 04/03/25 at 17:14. Electronically submitted by Angelita Montana ([email or web address]). SAMUEL MASSEY Apr 03, 2025 16:29 SKYLA CERVANTES MD Apr 03, 2025 21:18
--- NOTE | 2025-04-03 16:51 | DVH ---
CLINICAL HISTORY: confused TECHNIQUE: Helical scanning was performed of the head from the skull base to the vertex. Multiplanar reconstructions were performed. This exam was performed according to our departmental dose optimization program. Up-to-date CT equipment and radiation dose reduction techniques are utilized as appropriate. CTDI 59 DLP 1040 COMPARISON: None FINDINGS: There is no evidence for mass, mass effect, or extra-axial fluid collection. There is no hydrocephalus or midline shift. There is no effacement of the basal subarachnoid cisterns. There is intraparenchymal edema and sulcal effacement involving the left medial temporal and occipital lobes , compatible with acute STATEMENT CLERK territory infarct. There are foci of petechial hemorrhage. There is mild brain volume loss and chronic small vessel ischemic change. The imaged paranasal sinuses are clear. IMPRESSION: Acute left STATEMENT CLERK territory infarct with small amount of acute petechial hemorrhage.
[2025-04-03 17:06] LABS: Hematocrit 45.2 % (41.0-53.0); Hemoglobin 15.3 g/dL (13.5-17.5); Mean Corpuscular Hemoglobin 28.6 pg (28.0-32.0); Mean Corpuscular Volume 84.2 fL (80.0-100.0); Nucleated Red Blood Cells % 0.0 %
[2025-04-03 17:21] LABS: Alanine Aminotransferase 13 U/L (7-40); Alkaline Phosphatase 97 U/L (46-116); Anion Gap 10 (5-15); BUN/Creatinine Ratio 13.7 (10.0-20.0); Blood Urea Nitrogen 21 mg/dL (9-23); Calcium 9.9 mg/dL (8.7-10.4); Carbon Dioxide 28 mmol/L (20-31); Chloride 104 mmol/L (98-107); Glucose 100 mg/dL (74-106); Potassium 4.6 mmol/L (3.5-5.1); Sodium 142 mmol/L (136-145); Total Protein 7.9 g/dL (5.7-8.2)
[2025-04-03 17:22] LABS: Albumin 4.6 g/dL (3.2-4.8); Bilirubin, Total 0.7 mg/dL (0.2-1.0)
[2025-04-03 17:56] LABS: Urine Protein, UAD TRACE (Negative)
[2025-04-03 18:02] LABS: Amphetamine Screen, Urine Neg (NEGATIVE); Barbiturate Scree,Urine Neg (NEGATIVE); Benzodiazephine Screen, Urine Neg (NEGATIVE); Cannabinoid Screen, Urine Neg (NEGATIVE); Cocaine Screen, Urine Neg (NEGATIVE); Opiate Scree,Urine Neg (NEGATIVE); Phencyclidine Screen, Urine Neg (NEGATIVE)
[2025-04-03 19:37] VITALS: PULSE 81; RESP 18; O2SAT 97
[2025-04-03 22:02] VITALS: BP 166/81; PULSE 73; RESP 10; TEMP 98.3
[2025-04-03] MEDS: PHYTONADIONE (VIT K)10 MG/ML 1ML VIAL SUBCUT ONE (22:10)
[2025-04-03 22:16] VITALS: O2SAT 98
== END 2025-04-03 22:22 | disposition short-term general hospital (02) ==
LOC: ER 15:30
DX: I62.9 Nontraumatic intracranial hemorrhage, unspecified (principal); I10 Essential (primary) hypertension; I48.91 Unspecified atrial fibrillation
CPT/HCPCS: 36415; 70450; 80053; 80307; 81001; 82140; 83605; 85025; 96372; 99291; J3430